=== PATIENT | male | born 1960 | race African-American/Black ===

== ENCOUNTER 2017-01-31 20:55 | Inpatient (IN) | payer MEDICARE ==
[2017-01-31 21:50] LABS: #Basophils 0.1 thou/uL (0.0-0.2); #Eosinphils 0.5 thou/uL (0.0-0.7); #Monocytes 0.7 thou/uL (0.11-0.59); #Neutrophils 8.6 thou/uL (1.40-6.50); %Basophils 0.5 % (0.0-1.0); %Eosinophils 4.7 % (0.0-10.0); %Lymphocytes 9.4 % (21.0-51.0); %Monocytes 6.5 % (0.0-10.0); Hematocrit 32.4 % (42.0-52.0); Mean Platelet Volume 7.4 fL (7.4-10.4); White Blood Cell (WBC) Count 10.9 thou/uL (4.8-10.8)
[2017-01-31] MEDS ORDERED: Morphine 4 MG/ML VIAL ONE (21:50)
[2017-01-31 22:11] LABS: ALT (SGPT) 8 U/L (8-55); AST (SGOT) 13 U/L (5-34); Alkaline Phosphatase 166 U/L (40-150); Anion Gap 7 mmol/L (10-20); BUN (Urea Nitrogen) 12 mg/dL (8.4-25.7); Bilirubin, Total 0.2 mg/dL (0.2-1.2); Calc. Creatinine Clearance 0 mL/min (70-130); Calcium 10.9 mg/dL (7.8-10.44); Carbon Dioxide 27 mmol/L (22-29); Chloride 105 mmol/L (98-107); Estimated GFR-MDRD Greater than 90; Globulin 3.3 g/dL (2.4-3.5); Protein, Total 6.5 g/dL (6.0-8.3)
[2017-01-31] MEDS ORDERED: HYDROmorphone 0.5 MG/0.5 ML SYRINGE ONE (22:39)
[2017-01-31] MEDS ORDERED: HYDROmorphone 0.5 MG/0.5 ML SYRINGE SLOW IVP SCH (22:45)
[2017-02-01] MEDS ORDERED: Bisacodyl 5 MG TAB PO PRN (01:12)
[2017-02-01] MEDS ORDERED: Polyethylene Glycol 3350 17 GM Packet PO SCH (01:12)
[2017-02-01 01:30] VITALS: BMI 22.1
--- NOTE | 2017-02-01 01:53 | HP-2 ---
CODE STATUS: FULL. PRIMARY CARE PHYSICIAN: Ramón river. ATTENDING: Dr. Disla. PGY1: Dr. Antunez. SPECIALIST: Dr. Flor with Oncology. CHIEF COMPLAINT: Rectal pain. HISTORY OF PRESENT ILLNESS: This is a 56-year-old male who presents with a 3- day history of intractable rectal pain. He states that he takes [place] and morphine at home and he ran out of his pills 3 days ago. He describes the pain is a deep low rectal pain that feels like intense pressure. He states the pain does not radiate. He states nothing makes it better or worse. He has had normal bowel movements with some blood in his stool that has been normal for him since his diagnosis. He notes that he feels like a bowel movement would help the pain. He does also note some pain with urination at this time. He finished his radiation treatments about 1.5 weeks ago and will undergo a port placement in 2 weeks to start chemo treatments at that time. He has no other complaints at this time. 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 PAST SURGICAL HISTORY: Previous bowel surgery and right arm fracture repair. ALLERGIES: No known drug allergies. MEDICATIONS: He was taking six 10/325 mg [place] a day and he was taking morphine. He did not know the dosages of the morphine, but likely he was taking two tablets of 15 mg extended release tablets q.12 hours and so the combination of the [place] and the morphine likely equals to 40 mg of morphine per day. FAMILY HISTORY: Noncontributory. SOCIAL HISTORY: He does have a tobacco smoking history of 2 packs per day for 30 years. He denies alcohol or drug use. REVIEW OF SYSTEMS: GENERAL: He denies fever or chills. He does admit to a 54-pound weight loss in the last 3 months. EYES: Denies any vision changes or eye pain. ENT: Denies nasal congestion, rhinorrhea, or sore throat. RESPIRATORY: Denies cough, congestion, shortness of breath, exercise intolerance. CARDIOVASCULAR: Denies chest pain, palpitations, or edema. GASTROINTESTINAL: He does admit to nausea. He denies vomiting, diarrhea, constipation, or abdominal pain. He does admit to GI bleeding. GENITOURINARY: Denies any incontinence or dysuria. SKIN: He denies any rashes or lesions. MUSCULOSKELETAL: Denies pain, tenderness, or stiffness. NEUROLOGIC: He denies any weakness, numbness, syncope, or seizures. PSYCHIATRIC: He denies anxiety or depression. PHYSICAL EXAMINATION: VITAL SIGNS: Blood pressure is 119/69, pulse of 76, respirations 18, temperature max 98.8, pulse ox 97% on room air, current weight is 79 kilos. GENERAL: He is alert and oriented x4. He is appropriately interactive. EYES: PERRLA. Conjunctivae within normal limits. ENT: Tympanic membranes are pearly nava without bulging or erythema. Nasal mucosa and oropharynx within normal limits. NECK: Supple, without lymphadenopathy, without thyromegaly. CARDIOVASCULAR: Regular rate and rhythm. No murmurs, no gallops. Radial and pedal pulses equal bilaterally. RESPIRATORY: Normal effort. No retractions. LUNGS: Clear to auscultation bilaterally. SKIN: Warm and dry. ABDOMEN: Soft, nontender to palpation. Bowel sounds present x4. No masses or distention. EXTREMITIES: No clubbing, cyanosis, or edema. MUSCULOSKELETAL: Muscle structure, tone, muscle strength and range of motion within normal limits. NEUROLOGIC: No focal neurologic deficits. Sensation was within normal limits. Cranial nerves II through XII are grossly intact. GCS was 15. PSYCHIATRIC: Appropriate. RECTAL: He did have external hemorrhoids with no evidence of thrombosis or infection, but he could not tolerate digital rectal exam at this time because of pain. LABORATORY DATA: White blood cell count 10.9, platelet count 393, hemoglobin 10.2, hematocrit 32.4, MCV 89.9%, neutrophils 78.9. Sodium 135, potassium 4.0, chloride 105, bicarb 27, BUN 12, creatinine 0.85, glucose 89, calcium was 10.9, total protein 6.5, albumin 3.2, total bilirubin 0.2, AST 13, ALT 8, alkaline phosphatase 166. ASSESSMENT AND PLAN: A 56-year-old male who presents with: 1. Intractable pain likely secondary to his stage IV colon cancer. We will consult palliative care, given morphine, sitz bath, pain control as needed, and then a bowel regimen. 2. Stage IV Invasive Adenocarcinoma of the colon. Consult Oncology and Palliative as well as same as above. 3. Anemia. It is stable, actually improved from prior hospitalizations. We will monitor going forward. 4. Opioid withdrawal, likely because of his running out of medications. We will go same as above with the morphine and pain control regimen. Disposition and length of hospital stay will be inpatient in 2 midnights. Symptomatic medication will be provided. History and physical exam as well as management have been discussed with Dr. Disla. TAYLOR
[2017-02-01 02:30] LABS: Bilirubin Negative (Negative); Blood, Urine Trace (Negative); Glucose, Urine (Dipstick) Negative (Negative); Ketone, Urine Negative (Negative); Nitrite Negative (Negative); Protein, Urine (Dipstick) Negative (Neg-Trace); Urobilinogen 0.2 mg/dL (0.2-1.0)
[2017-02-01 02:32] LABS: Bacteria/HPF None Seen HPF (None Seen); Hyaline Casts/LPF 4-6 HYALINE CAST LPF (0-3 Hyaline); Squamous Epithelial 0-3 HPF (0-3); WBC/HPF 0-3 HPF (0-3)
[2017-02-01] MEDS: MORPHINE 10 MG/ML SYRINGE SLOW IVP PRN ×2 (02:34→06:10)
[2017-02-01 04:04] LABS: #Eosinphils 0.4 thou/uL (0.0-0.7); #Lymphocytes 0.7 thou/uL (1.20-3.40); #Monocytes 0.7 thou/uL (0.11-0.59); #Neutrophils 9.7 thou/uL (1.40-6.50); %Basophils 0.4 % (0.0-1.0); %Eosinophils 3.6 % (0.0-10.0); %Lymphocytes 5.6 % (21.0-51.0); %Monocytes 6.2 % (0.0-10.0); Hematocrit 30.3 % (42.0-52.0); Red Blood Cell (RBC) Count 3.38 mill/uL (4.70-6.10); White Blood Cell (WBC) Count 11.6 thou/uL (4.8-10.8)
[2017-02-01 04:21] LABS: Anion Gap 8 mmol/L (10-20); BUN (Urea Nitrogen) 10 mg/dL (8.4-25.7); Calc. Creatinine Clearance 109 mL/min (70-130); Calcium 10.7 mg/dL (7.8-10.44); Carbon Dioxide 24 mmol/L (22-29); Chloride 106 mmol/L (98-107); Estimated GFR-MDRD Greater than 90
[2017-02-01] MEDS ORDERED: Morphine ER 15 MG TAB PO SCH (09:00)
[2017-02-01] MEDS: Ondansetron ODT 4 MG TAB PO PRN ×2 (09:05→23:28)
[2017-02-01] MEDS: Docusate 100 MG CAP PO SCH ×2 (09:05→20:09)
--- NOTE | 2017-02-01 09:28 | PDOC.FM ---
- Subjective Subjective: Patient reports being able to get some sleep overnight despite pain. Reports he has not had BM overnight which is unusual for him. Rectal pain is still present. Denies CP, SOB, N/V. - Objective MAR Reviewed: Yes Vital Signs & Weight: Vital Signs (12 hours) Temp Pulse Resp BP Pulse Ox 02/01/17 03:29 97.8 F 86 18 134/82 100 I&O: 01/31/17 02/01/17 02/02/17 06:59 06:59 06:59 Intake Total 120 Balance 120 Result Diagrams: 02/01/17 03:50 02/01/17 03:50 <Ryan Serna - Last Filed: 02/01/17 09:26> - Objective Vital Signs & Weight: Vital Signs (12 hours) Temp Pulse Resp BP Pulse Ox 02/01/17 12:00 97.7 F 88 16 130/79 99 02/01/17 08:00 98.9 F 82 16 128/73 100 02/01/17 03:29 97.8 F 86 18 134/82 100 I&O: 01/31/17 02/01/17 02/02/17 06:59 06:59 06:59 Intake Total 120 Balance 120 Result Diagrams: 02/01/17 03:50 02/01/17 03:50 <Rebekah Disla - Last Filed: 02/01/17 15:20> Phys Exam - Physical Examination reports pain at rest, grimaces occasionally HEENT: moist MMs, oral pharynx no lesions Neck: no JVD, full ROM Respiratory: no wheezing, clear to auscultation bilateral Cardiovascular: RRR, no significant murmur Gastrointestinal: soft diffusely mildly TTP Musculoskeletal: pulses present Neurological: non-focal, moves all 4 limbs Psychiatric: normal affect, A&O x 3 Skin: no rash, normal turgor <Ryan Serna - Last Filed: 02/01/17 09:26> Dx/Plan (1) Intractable abdominal pain Code(s): R10.9 - UNSPECIFIED ABDOMINAL PAIN Status: Acute Plan: Will restart meds as 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 (2) Rectal adenocarcinoma metastatic to liver Code(s): C20 - MALIGNANT NEOPLASM OF RECTUM; C78.7 - SECONDARY MALIG NEOPLASM OF LIVER AND INTRAHEPATIC BILE DUCT Status: Acute Plan: Stable at this time. Patient finished radiation within the past 2 weeks, and plans to start radiation in the next 2 weeks. (3) Protein calorie malnutrition Code(s): E46 - UNSPECIFIED PROTEIN-CALORIE MALNUTRITION Status: Acute Plan: Ensure high protein (4) Microcytic anemia Code(s): D50.9 - IRON DEFICIENCY ANEMIA, UNSPECIFIED Status: Acute <Ryan Serna - Last Filed: 02/01/17 09:26> Attending Addendum - Attending Addendum I personally evaluated the patient and discussed the management with Dr. Serna. I agree with the History, Examination, Assessment and Plan documented above with any addition or exceptions noted below. Patient still with rectal pain. Will restart home pain meds with [place] and Morphine ER 15 mg TID <Rebekah Disla - Last Filed: 02/01/17 15:20>
[2017-02-01] MEDS: Morphine 4 MG/ML VIAL SLOW IVP PRN ×4 (10:13→23:00)
[2017-02-01] MEDS: HYDROcodone/Acetaminophen 10/325 mg Tablet PO PRN (11:59)
--- NOTE | 2017-02-01 14:13 | HP ---
DATE OF SERVICE: 02/01/2017 CHIEF COMPLAINT: Rectal pain. HISTORY OF PRESENT ILLNESS: The patient is a 56-year-old -[place] male with a past medical h istory of stage IV adenocarcinoma of the colon with liver and lung metastasis, who presented with a 3 -day history of intractable rectal pain. The patient takes [place] and morphine at home, but ran out o f his medications 3 days ago. The pain is pressure-like in nature and does not radiate. He is due t o start chemo on a few weeks and just finished radiation 1-2 weeks ago. Overnight, he has received s ome IV morphine. He has not yet been started back on his home regimen. We will restart his home med ications and short-acting morphine as needed for breakthrough pain. The patient's diagnoses include intractable pain, stage IV invasive adenocarcinoma of the colon, anemia likely secondary to the menti oned above and possible opiate withdrawal, because he has run out of his medications. We will restar t his medications and providing supportive care. I have reviewed and discussed the H&P with Dr. Javed cross and repeated pertinent portions with myself. Please see his dictation for full history, physical, assessment and plan.
[2017-02-01] MEDS: Morphine ER 15 MG TAB PO SCH (20:09)
[2017-02-02] MEDS: HYDROcodone/Acetaminophen 10/325 mg Tablet PO PRN (00:17)
[2017-02-02] MEDS: Morphine 4 MG/ML VIAL SLOW IVP PRN ×2 (03:03→07:05)
--- NOTE | 2017-02-02 05:57 | PDOC.FM ---
- Subjective Subjective: Patient continues to be in pain this morning. Reports that his pain is better than when he came in but still not controlled. Cannot remember the dosages of meds he takes at home. Is very worried that he will not be able to get any pain meds filled because it is too early. He took more [place] 10 tabs than he was supposed to because he was out of the MS Contin for 3 days IN HOUSE CRA. - Objective MAR Reviewed: Yes Vital Signs & Weight: Vital Signs (12 hours) Temp Pulse Resp BP Pulse Ox 02/02/17 03:45 98.3 F 75 12 121/80 98 02/01/17 23:24 98.1 F 77 12 118/81 98 02/01/17 20:00 98.1 F 77 12 02/01/17 19:28 97.7 F 72 16 128/71 97 I&O: 01/31/17 02/01/17 02/02/17 06:59 06:59 06:59 Intake Total 120 960 Balance 120 960 Result Diagrams: 02/01/17 03:50 02/01/17 03:50 <Jimena Winn - Last Filed: 02/02/17 13:33> - Objective Vital Signs & Weight: Vital Signs (12 hours) Temp Pulse Resp BP 02/02/17 16:00 98.6 F 73 16 116/76 02/02/17 11:42 97.5 F L 80 20 116/77 I&O: 02/01/17 02/02/17 02/03/17 06:59 06:59 06:59 Intake Total 120 960 Balance 120 960 Result Diagrams: 02/01/17 03:50 02/01/17 03:50 <Gee Arguelles - Last Filed: 02/02/17 21:24> Phys Exam - Physical Examination Constitutional: NAD lying very still, evidence of pain Respiratory: clear to auscultation bilateral Cardiovascular: RRR, no significant murmur Gastrointestinal: soft, positive bowel sounds mild distension, mild ttp throughout Psychiatric: normal affect, A&O x 3 <Jimena Winn - Last Filed: 02/02/17 13:33> Dx/Plan (1) Rectal adenocarcinoma metastatic to liver Code(s): C20 - MALIGNANT NEOPLASM OF RECTUM; C78.7 - SECONDARY MALIG NEOPLASM OF LIVER AND INTRAHEPATIC BILE DUCT Status: Acute (2) Intractable abdominal pain Code(s): R10.9 - UNSPECIFIED ABDOMINAL PAIN Status: Acute (3) Microcytic anemia Code(s): D50.9 - IRON DEFICIENCY ANEMIA, UNSPECIFIED Status: Acute (4) Protein calorie malnutrition Code(s): E46 - UNSPECIFIED PROTEIN-CALORIE MALNUTRITION Status: Acute - Plan Plan: (1) Intractable abdominal pain Code(s): R10.9 - UNSPECIFIED ABDOMINAL PAIN Status: Acute Plan: Spoke with MAGGIE Miller and was informed home dose should be 60mg MS Contin BID. Restart home doses and will check back later to evaluate pain. Likely d/c home today. (2) Rectal adenocarcinoma metastatic to liver Code(s): C20 - MALIGNANT NEOPLASM OF RECTUM; C78.7 - SECONDARY MALIG NEOPLASM OF LIVER AND INTRAHEPATIC BILE DUCT Status: Acute Plan: Stable at this time. Patient finished radiation within the past 2 weeks, and plans to start chemo in the next 2 weeks. (3) Protein calorie malnutrition Code(s): E46 - UNSPECIFIED PROTEIN-CALORIE MALNUTRITION Status: Acute Plan: Ensure high protein. (4) Microcytic anemia Code(s): D50.9 - IRON DEFICIENCY ANEMIA, UNSPECIFIED Status: Acute Likely due to blood loss from adenocarcinoma, stable at this time. <Jimena Winn - Last Filed: 02/02/17 13:33> Attending Addendum - Attending Addendum I personally evaluated the patient and discussed the management with Dr. Winn. I agree with the History, Examination, Assessment and Plan documented above with any addition or exceptions noted below. Dejan is feeling better. Pain is controlled when he lies still but hurts to move. Moderate abdominal tenderness in lower quadrants. After confering with Esme, oncology nurse practitioner, we learned the correct dose of MS contin he is supposed to be taking is [address] Vallecillo to write schedule II Rxs for MS Contin 60 mg bid #60 and additional Hydrocodone APAP and Compazine 10 mg to hopefully get him through the next 30 days. He will follow up with oncology as scheduled and will likely be discharged if his pain control is adequate later this PM or tomorrow. We discussed bowel regimen and preventing constipation as well as encouraging him to take the Flu and Pneumococcal vaccines. <Gee Arguelles - Last Filed: 02/02/17 21:24>
[2017-02-02] MEDS: Docusate 100 MG CAP PO SCH (08:20)
[2017-02-02] MEDS: Morphine ER 15 MG TAB PO SCH (08:21)
[2017-02-02] MEDS ORDERED: Morphine 4 MG/ML VIAL SLOW IVP PRN (08:38)
[2017-02-02] MEDS ORDERED: Morphine ER 15 MG TAB PO SCH ×2 (10:00→16:30)
[2017-02-02] MEDS ORDERED: Morphine ER 30 MG TAB PO SCH (10:00)
[2017-02-02] MEDS ORDERED: Preparation H Suppository PR PRN (10:31)
[2017-02-02] MEDS ORDERED: Witch Hazel-Glycerin 1 EACH JAR TOP PRN (10:31)
[2017-02-02] MEDS ORDERED: Preparation H Ointment 28 GM TUBE TOP PRN (10:31)
[2017-02-02] MEDS ORDERED: HYDROcodone/Acetaminophen 10/325 mg Tablet PO SCH (12:30)
[2017-02-02] MEDS ORDERED: Prochlorperazine Maleate 5 MG TAB PO PRN (13:44)
[2017-02-02 16:49] VITALS: BP 116/76; TEMP 98.6
--- NOTE | 2017-02-03 11:01 | DIS-2 ---
DATE OF ADMISSION: 02/01/2017 DATE OF DISCHARGE: 02/02/2017 RESIDENT: Jimena Winn DO ADMITTING ATTENDING: Rebekah Disla M.D. DISCHARGE ATTENDING: Gee Arguelles M.D. CONSULTS: None. PROCEDURES/IMAGING: None. PRIMARY DIAGNOSES: 1. Intractable pain secondary to stage IV colon cancer. 2. Stage IV invasive adenocarcinoma of the colon. SECONDARY DIAGNOSIS: Iron deficiency anemia. DISCHARGE MEDICATIONS: 1. Promethazine 10 mg p.o. q.6 hours p.r.n. 2. Docusate 100 mg p.o. b.i.d. 3. Morphine ER 60 mg p.o. q.12 hours x14 tablets. DISCONTINUED MEDICATIONS: Hydrocodone 10/325. Patient had run out of this and it was not refilled during this hospitalization stay for reasons below. HISTORY OF PRESENT ILLNESS AND HOSPITAL COURSE: The patient is a 56-year-old -[place] male with past medical history of stage IV adenocarcinoma of the colon, who is undergoing treatment with chemo and radiation. The patient reports that at his last office visit, MS Contin was not refilled and therefore has been taking more than prescribed of his hydrocodone/acetaminophen. The patient was placed on home medications during his stay and [facility] PA was contacted for recommended dosages of pain medication. It was found that the patient should be on 60 mg p.o. q. 12 hours of MS Contin along with hydrocodone/acetaminophen 10/325 one to two tablets p.o. p.r.n. q.4-6 hours. The patient did receive moderate relief from this pain regimen. Unfortunately, at the time of discharge when trying to determine meds to refill , the patient was [email or web address] as well as confirmed with the pharmacist at [facility] that the patient had been given hydrocodone. On 12/03/2016, [place] 10/325, 180 tablets and again on 12/12, [place] 10/325, 120 tablets. Again on 12/17, five days later, [place] 7.5/325, 30 tablets. Again on 12/26, nine days later, [place] 10/325, 180 tablets. Again on 01/05, 10 days later, [place] 10/325, 120 tablets. Again on 01/12, [place] 10/325, 120 tablets. Again 4 days later on 01/16/2017, [place] 10/325, 180 tablets. Again 11 days later on 01/27, [place] 10/325, 180 tablets. These have been prescribed by multiple different physicians. When patient was approached with the increased amount of scripts and usage of [place], he denied use for any other person including selling these drugs and girlfriend reported that he takes them all himself. Regardless, from this point forward Dr. Flor reports that he will not receive [place] until his next appointment and from here on out will only be prescribed [place] from Dr. Flor and nobody else. The patient and girlfriend are with understanding. DISPOSITION: Stable. DISCHARGE INSTRUCTIONS: 1. Location: Home. 2. Diet: Regular. 3. Activity: As tolerated. 4. Follow up with Dr. Flor, next scheduled appointment on 02/20. TAYLOR
== END 2017-02-02 17:20 | disposition home or self-care (01) | DRG 948 ==
LOC: ERS 20:55 → ONC 02-01 00:11 → OBSVTOIN 02-01 01:12
PROVIDERS: ADMIT Family Medicine; ATTEND Family Medicine
DX: G89.3 Neoplasm related pain (acute) (chronic) (principal); C78.00 Secondary malignant neoplasm of unspecified lung; C78.7 Secondary malignant neoplasm of liver and intrahepatic bile duct; E46 Unspecified protein-calorie malnutrition; Z68.42 Body mass index [BMI] 45.0-49.9, adult; C18.9 Malignant neoplasm of colon, unspecified; F11.23 Opioid dependence with withdrawal; D50.9 Iron deficiency anemia, unspecified; K64.4 Residual hemorrhoidal skin tags; Z92.3 Personal history of irradiation; Z51.5 Encounter for palliative care
CPT/HCPCS: 36415; 80048; 80053; 81001; 85025; 96361; 96374; 96375; 96376; A4216; J1170; J2270; Q0162; Q0164

== ENCOUNTER 2017-02-10 06:26 | Day surgery (SDC) | payer MEDICARE ==
[2017-02-09 11:47] VITALS: BMI 22.4
[2017-02-10] MEDS ORDERED: Fentanyl 100 MCG/2 ML VIAL ONE ×2 (06:44→07:25)
[2017-02-10] MEDS ORDERED: Propofol 500 MG/50 ML VIAL ONE (06:44)
[2017-02-10 06:52] LABS: #Basophils 0.1 thou/uL (0.0-0.2); #Eosinphils 0.7 thou/uL (0.0-0.7); #Lymphocytes 1.1 thou/uL (1.20-3.40); #Monocytes 0.9 thou/uL (0.11-0.59); #Neutrophils 10.9 thou/uL (1.40-6.50); %Basophils 0.5 % (0.0-1.0); %Eosinophils 5.3 % (0.0-10.0); %Lymphocytes 8.2 % (21.0-51.0); %Monocytes 6.3 % (0.0-10.0); Hematocrit 35.2 % (42.0-52.0); Mean Platelet Volume 6.6 fL (7.4-10.4); Red Blood Cell (RBC) Count 3.88 mill/uL (4.70-6.10); White Blood Cell (WBC) Count 13.7 thou/uL (4.8-10.8)
[2017-02-10] MEDS ORDERED: Bupivacaine/Epinephrine 0.25% 30 ML VIAL ONE (07:07)
[2017-02-10] MEDS ORDERED: CEFAZOLIN/Water 2 GM/20 ML SYRINGE ONE (07:09)
[2017-02-10 07:12] LABS: Anion Gap 10 mmol/L (10-20); BUN (Urea Nitrogen) 13 mg/dL (8.4-25.7); Calc. Creatinine Clearance 115 mL/min (70-130); Calcium 11.5 mg/dL (7.8-10.44); Carbon Dioxide 28 mmol/L (22-29); Chloride 102 mmol/L (98-107); Estimated GFR-MDRD Greater than 90
[2017-02-10] MEDS ORDERED: Ketorolac Tromethamine 30 MG/ML VIAL ONE (09:17)
--- NOTE | 2017-02-10 09:18 | RAD ---
PORTABLE UPRIGHT FRONTAL CHEST RADIOGRAPH: Date: 02/10/17 COMPARISON: 11/13/16. HISTORY: Evaluate chest following MediPort placement. FINDINGS: There is a left-sided MediPort, distal tip overlying the region of the cavoatrial junction. There is no pneumothorax, pleural fluid, focal consolidation, or alveolar edema. IMPRESSION: Port-A-Cath in place. No evidence for pneumothorax. POS: [facility]
[2017-02-10] MEDS ORDERED: HYDROcodone/Acetaminophen 5/325 mg Tablet ONE (09:32)
[2017-02-10] MEDS ORDERED: Lidocaine 1% PF 5 ML VIAL ONE (16:29)
[2017-02-10] MEDS ORDERED: Propofol 200 MG/20 ML VIAL ONE (16:30)
--- NOTE | 2017-02-11 14:08 | OP ---
PROCEDURE: Left subclavian MediPort with fluoroscopic guidance. DATE OF PROCEDURE: 02/10/2017 PREOPERATIVE DIAGNOSIS: Metastatic rectal cancer. POSTOPERATIVE DIAGNOSIS: Metastatic rectal cancer. HISTORY: Mr. Canada is a 56-year-old man with metastatic rectal cancer, who requires a MediPort place ment for chemotherapy access. PROCEDURE IN DETAIL: After informed consent was obtained and appropriate preoperative antibiotics ad ministered, the patient was taken to the operating room, he was placed in supine position and monitor ed anesthesia care was administered. He was prepped and draped in a standard sterile fashion and josafat mary in Trendelenburg position. The left subclavian vein was accessed by the standard approach withou t difficulty with excellent flow of dark venous non-pulsatile blood. A wire threaded easily and was confirmed by fluoroscopy to be in the superior vena cava. The skin incision was extended laterally f rom the wire and a subcutaneous pocket created. The low profile MediPort hub was placed within this pocket and secured to the underlying pectoralis fascia with Prolene sutures. A sheath and dilator we re then placed over the wire and the wire and dilator removed leaving the sheath in place. The clamp ed MediPort tubing was advanced through the sheath, which was split and removed leaving the tubing in place. The tubing was drawn back until the tip was at the appropriate location in the superior vena cava. This was trimmed to length and attached to the MediPort hub. The MediPort easily aspirated d ark venous nonpulsatile blood and flushed without resistance. The MediPort was confirmed by fluorosc opy to be in good position with the tip appropriately positioned in the superior vena cava and no kin stephon of the path of the MediPort tubing. The subcutaneous tissues were reapproximated with 3-0 Monoc ryl suture and the skin closed with 4-0 Monocryl suture. Dermabond dressings were applied and the pa tient was taken to the recovery room in good condition. Estimated blood loss was minimal. There wer e no complications. There were no specimens.
== END 2017-02-10 09:50 | disposition home or self-care (01) ==
LOC: SDC 06:26
PROVIDERS: ATTEND Surgery
PROC: 05H633Z Insertion of Infusion Device into Left Subclavian Vein, Percutaneous Approach (ICD-10-PCS; principal; 2017-02-10)
DX: C20 Malignant neoplasm of rectum (principal); C78.7 Secondary malignant neoplasm of liver and intrahepatic bile duct; F17.210 Nicotine dependence, cigarettes, uncomplicated; Z90.49 Acquired absence of other specified parts of digestive tract; Z98.890 Other specified postprocedural states
CPT/HCPCS: 36561; 71010; 80048; 85025; 96374; C1788; 36415; J1642; J1885; J2001; J2704; J3010

== ENCOUNTER 2017-02-24 10:42 | Day surgery (SDC) | payer MEDICARE ==
[2017-02-24] MEDS ORDERED: Sodium Chloride 0.9% 20 ML ONE (11:07)
[2017-02-24] MEDS ORDERED: ONDANSETRON IV SCH (11:15)
[2017-02-24] MEDS ORDERED: SODIUM CHLORIDE 0.9% IV SCH (11:15)
[2017-02-24] MEDS ORDERED: DEXAMETHASONE IV SCH (11:15)
[2017-02-24] MEDS ORDERED: Oxaliplatin 200 MG in Dextrose 5% in Water 500 ML IVPB SCH ×2 (11:30)
[2017-02-24] MEDS ORDERED: FLUOROURACIL IVPB SCH ×2 (11:30)
[2017-02-24] MEDS ORDERED: WATER IVPB SCH ×2 (11:30)
[2017-02-24] MEDS ORDERED: SODIUM CHLORIDE 0.9% IVPB SCH (11:30)
[2017-02-24] MEDS ORDERED: DEXTROSE 5% IVPB SCH ×2 (11:30)
[2017-02-24] MEDS ORDERED: BEVACIZUMAB IVPB SCH (11:30)
[2017-02-24 11:46] VITALS: BP 104/67; TEMP 98
== END 2017-02-24 17:22 | disposition home or self-care (01) ==
LOC: ONC/OP 10:42
PROVIDERS: ATTEND Internal Medicine Medical Oncology
DX: Z51.11 Encounter for antineoplastic chemotherapy (principal); C20 Malignant neoplasm of rectum; C78.7 Secondary malignant neoplasm of liver and intrahepatic bile duct; C78.02 Secondary malignant neoplasm of left lung; C78.01 Secondary malignant neoplasm of right lung; F17.210 Nicotine dependence, cigarettes, uncomplicated; Z79.891 Long term (current) use of opiate analgesic; Z79.899 Other long term (current) drug therapy; Z90.49 Acquired absence of other specified parts of digestive tract; Z98.890 Other specified postprocedural states
CPT/HCPCS: 36415; 80053; 82248; 82378; 83615; 84100; 84550; 96367; 96413; 96415; 96417; A4216; J1100; J2405; J7050; J7070; J9035; J9190; J9263

== ENCOUNTER 2017-03-10 11:56 | Day surgery (SDC) | payer MEDICARE ==
[2017-03-10] MEDS ORDERED: Sodium Chloride 0.9% 50 ML ONE (12:02)
[2017-03-10 12:34] VITALS: BP 130/80
[2017-03-10 12:39] LABS: #Basophils 0.1 thou/uL (0.0-0.2); #Eosinphils 0.8 thou/uL (0.0-0.7); #Lymphocytes 0.9 thou/uL (1.20-3.40); #Monocytes 0.7 thou/uL (0.11-0.59); #Neutrophils 8.1 thou/uL (1.40-6.50); %Basophils 0.5 % (0.0-1.0); %Eosinophils 7.6 % (0.0-10.0); %Lymphocytes 8.3 % (21.0-51.0); %Monocytes 6.5 % (0.0-10.0); %Neutrophils 77.1 % (42.0-75.0); Hemoglobin 10.9 g/dL (14.0-18.0); Mean Corpuscular HGB CONC 32.4 g/dL (32.0-36.0); Mean Corpuscular Hemoglobin 29.9 pg (27.0-31.0); Mean Corpuscular Volume 92.4 fl (80.0-94.0); Mean Platelet Volume 7.2 fL (7.4-10.4); Platelet Count 334 thou/uL (130-400); RBC Distribution Width 18.5 % (11.5-14.5); Red Blood Cell (RBC) Count 3.64 mill/uL (4.70-6.10); White Blood Cell (WBC) Count 10.5 thou/uL (4.8-10.8)
[2017-03-10 13:09] LABS: ALT (SGPT) 8 U/L (8-55); AST (SGOT) 14 U/L (5-34); Albumin 3.6 g/dL (3.5-5.0); Alkaline Phosphatase 164 U/L (40-150); Anion Gap 13 mmol/L (10-20); BUN (Urea Nitrogen) 9 mg/dL (8.4-25.7); Bilirubin, Total 0.2 mg/dL (0.2-1.2); Calc. Creatinine Clearance 104 mL/min (70-130); Calcium 11.1 mg/dL (7.8-10.44); Carbon Dioxide 30 mmol/L (22-29); Chloride 100 mmol/L (98-107); Estimated GFR-MDRD Greater than 90; Globulin 2.9 g/dL (2.4-3.5); Glucose 86 mg/dL (70-105); Potassium 3.5 mmol/L (3.5-5.1); Protein, Total 6.5 g/dL (6.0-8.3); Sodium 139 mmol/L (136-145)
[2017-03-10] MEDS ORDERED: WATER IVPB SCH (13:15)
[2017-03-10] MEDS ORDERED: Oxaliplatin 200 MG in Dextrose 5% in Water 500 ML IVPB SCH (13:15)
[2017-03-10] MEDS ORDERED: Dexamethasone 20 MG in Sodium Chloride 0.9% 50 ML IVPB SCH (13:15)
[2017-03-10] MEDS ORDERED: BEVACIZUMAB IVPB SCH ×2 (13:15→14:30)
[2017-03-10] MEDS ORDERED: SODIUM CHLORIDE 0.9% IVPB SCH ×3 (13:15→14:30)
[2017-03-10] MEDS ORDERED: Ondansetron HCl/PF 10 MG in Sodium Chloride 0.9% 50 ML IVPB SCH (13:15)
[2017-03-10] MEDS ORDERED: FLUOROURACIL IVPB SCH (13:15)
[2017-03-10] MEDS ORDERED: DEXTROSE 5% IVPB SCH (13:15)
[2017-03-10] MEDS ORDERED: Admixture Fee 1 EACH in Dextrose 5% in Water 10 ML FS SCH (13:45)
[2017-03-10] MEDS ORDERED: DEXAMETHASONE SLOW IVP SCH (14:00)
[2017-03-10] MEDS ORDERED: ONDANSETRON HCL IVPB SCH (14:00)
[2017-03-10] MEDS ORDERED: SODIUM CHLORIDE 0.9% SLOW IVP SCH (14:00)
== END 2017-03-10 18:36 | disposition home or self-care (01) ==
LOC: ONC/OP 11:56
PROVIDERS: ATTEND Internal Medicine Medical Oncology
DX: Z51.11 Encounter for antineoplastic chemotherapy (principal); C20 Malignant neoplasm of rectum; C78.7 Secondary malignant neoplasm of liver and intrahepatic bile duct; C78.02 Secondary malignant neoplasm of left lung; C78.01 Secondary malignant neoplasm of right lung; F17.210 Nicotine dependence, cigarettes, uncomplicated; Z79.891 Long term (current) use of opiate analgesic; Z79.899 Other long term (current) drug therapy; Z90.49 Acquired absence of other specified parts of digestive tract
CPT/HCPCS: 80053; 84550; 85025; 96375; 96413; 96415; 96417; A4216; J1100; J2405; J7050; J7070; J9035; J9190; J9263

== ENCOUNTER 2017-03-19 20:15 | Emergency (ER) | payer MEDICARE ==
[2017-03-19 21:40] LABS: #Eosinphils 0.7 thou/uL (0.0-0.7); #Monocytes 0.8 thou/uL (0.11-0.59); #Neutrophils 5.4 thou/uL (1.40-6.50); %Basophils 0.5 % (0.0-1.0); %Eosinophils 8.7 % (0.0-10.0); %Lymphocytes 12.6 % (21.0-51.0); %Monocytes 9.5 % (0.0-10.0); %Neutrophils 68.7 % (42.0-75.0); Hemoglobin 11.3 g/dL (14.0-18.0); Mean Corpuscular HGB CONC 32.4 g/dL (32.0-36.0); Mean Corpuscular Volume 92.4 fl (80.0-94.0); Mean Platelet Volume 7.1 fL (7.4-10.4); Platelet Count 307 thou/uL (130-400); RBC Distribution Width 18.5 % (11.5-14.5); Red Blood Cell (RBC) Count 3.76 mill/uL (4.70-6.10); White Blood Cell (WBC) Count 7.9 thou/uL (4.8-10.8)
--- NOTE | 2017-03-19 21:48 | RAD ---
PORTABLE CHEST ONE VIEW: 03/19/17 at 8:43 p.m. HISTORY: Weakness, weight loss and penis infection. Patient has stage IV colon cancer. FINDINGS: Comparison is made with exam of 02/10/17. The heart size is normal. the lungs are well expanded without focal areas of consolidation, pneumotho rax or pleural effusions. Left sided Port-A-Cath remains in place. IMPRESSION: No radiographic evidence of acute cardiopulmonary process. POS: [facility]
[2017-03-19 21:58] LABS: ALT (SGPT) 8 U/L (8-55); AST (SGOT) 17 U/L (5-34); Albumin 3.4 g/dL (3.5-5.0); Alkaline Phosphatase 144 U/L (40-150); Anion Gap 14 mmol/L (10-20); BUN (Urea Nitrogen) 11 mg/dL (8.4-25.7); Bilirubin, Total Less than 0.2 mg/dL (0.2-1.2); Calc. Creatinine Clearance 0 mL/min (70-130); Calcium 11.9 mg/dL (7.8-10.44); Carbon Dioxide 27 mmol/L (22-29); Chloride 103 mmol/L (98-107); Estimated GFR-MDRD Greater than 90; Globulin 3.4 g/dL (2.4-3.5); Glucose 96 mg/dL (70-105); Potassium 3.8 mmol/L (3.5-5.1); Protein, Total 6.8 g/dL (6.0-8.3); Sodium 140 mmol/L (136-145)
[2017-03-19 22:07] LABS: CKMB 0.4 ng/mL (0-6.6); Troponin I Less than 0.010 ng/mL (< 0.028)
[2017-03-19 23:44] LABS: Bilirubin Negative (Negative); Blood, Urine Negative (Negative); Clarity TURBID (Clear); Glucose, Urine (Dipstick) Negative (Negative); Leukocyte Trace (Negative); Nitrite Negative (Negative); Protein, Urine (Dipstick) Negative (Neg-Trace); Specific Gravity, Urine 1.019 (1.002-1.036)
[2017-03-19 23:46] LABS: Bacteria/HPF None Seen HPF (None Seen); Squamous Epithelial 0-3 HPF (0-3); WBC/HPF 0-3 HPF (0-3)
[2017-03-19 23:49] LABS: Pathc Cast-AUWi Flag 2.84 (0-2.49)
[2017-03-19 23:58] LABS: Crystals/HPF 2+ AMORPH PHOS HPF (Negative); Hyaline Casts/LPF 0-3 HYALINE CAST LPF (0-3 Hyaline)
== END 2017-03-20 00:40 | disposition home or self-care (01) ==
LOC: ERS 20:15
DX: N48.22 Cellulitis of corpus cavernosum and penis (principal); F17.210 Nicotine dependence, cigarettes, uncomplicated; Z85.038 Personal history of other malignant neoplasm of large intestine; Z79.899 Other long term (current) drug therapy
CPT/HCPCS: 71045; 80053; 81003; 81015; 82553; 84484; 85025; 93005; 96360; 99406

== ENCOUNTER 2017-03-26 11:55 | Day surgery (SDC) | payer MEDICARE ==
[2017-03-26] MEDS ORDERED: Dexamethasone 20 MG in Sodium Chloride 0.9% 50 ML IVPB SCH (12:15)
[2017-03-26] MEDS ORDERED: DEXTROSE 5% IVPB SCH ×2 (12:15)
[2017-03-26] MEDS ORDERED: Ondansetron HCl/PF 10 MG in Sodium Chloride 0.9% 50 ML IVPB SCH (12:15)
[2017-03-26] MEDS ORDERED: BEVACIZUMAB IVPB SCH (12:15)
[2017-03-26] MEDS ORDERED: Oxaliplatin 200 MG in Dextrose 5% in Water 500 ML IVPB SCH ×2 (12:15)
[2017-03-26] MEDS ORDERED: WATER IVPB SCH ×2 (12:15)
[2017-03-26] MEDS ORDERED: SODIUM CHLORIDE 0.9% IVPB SCH ×3 (12:15→12:30)
[2017-03-26] MEDS ORDERED: FLUOROURACIL IVPB SCH ×2 (12:15)
[2017-03-26] MEDS ORDERED: Sodium Chloride 0.9% 20 ML ONE (12:24)
[2017-03-26] MEDS ORDERED: DEXAMETHASONE IVPB SCH ×2 (12:30)
[2017-03-26] MEDS ORDERED: ONDANSETRON IVPB SCH ×2 (12:30)
== END 2017-03-26 18:00 | disposition home or self-care (01) ==
LOC: ONC/OP 11:55
PROVIDERS: ATTEND Internal Medicine Medical Oncology
DX: Z51.11 Encounter for antineoplastic chemotherapy (principal); C20 Malignant neoplasm of rectum; F17.210 Nicotine dependence, cigarettes, uncomplicated; Z83.3 Family history of diabetes mellitus; Z90.49 Acquired absence of other specified parts of digestive tract; Z98.890 Other specified postprocedural states
CPT/HCPCS: 36415; 80053; 82248; 83615; 83970; 84100; 84550; 96367; 96413; 96415; 96417; A4216; J1100; J2405; J7050; J7070; J9035; J9190; J9263

== ENCOUNTER 2017-04-04 11:05 | Inpatient (IN) | payer MEDICARE ==
[2017-04-04 11:50] LABS: #Basophils 0.1 thou/uL (0.0-0.2); #Eosinphils 0.3 thou/uL (0.0-0.7); #Monocytes 0.9 thou/uL (0.11-0.59); #Neutrophils 7.4 thou/uL (1.40-6.50); %Basophils 0.6 % (0.0-1.0); %Eosinophils 3.5 % (0.0-10.0); %Lymphocytes 9.8 % (21.0-51.0); %Monocytes 9.1 % (0.0-10.0); %Neutrophils 77.1 % (42.0-75.0); Hemoglobin 11.6 g/dL (14.0-18.0); Mean Corpuscular Hemoglobin 30.1 pg (27.0-31.0); Mean Platelet Volume 6.7 fL (7.4-10.4); Platelet Count 377 thou/uL (130-400); RBC Distribution Width 17.7 % (11.5-14.5); Red Blood Cell (RBC) Count 3.85 mill/uL (4.70-6.10); White Blood Cell (WBC) Count 9.6 thou/uL (4.8-10.8)
[2017-04-04 12:17] LABS: ALT (SGPT) 8 U/L (8-55); AST (SGOT) 13 U/L (5-34); Albumin 3.7 g/dL (3.5-5.0); Alkaline Phosphatase 144 U/L (40-150); Anion Gap 10 mmol/L (10-20); BUN (Urea Nitrogen) 10 mg/dL (8.4-25.7); Bilirubin, Total 0.2 mg/dL (0.2-1.2); CK (CPK) 64 U/L (30-200); Calc. Creatinine Clearance 0 mL/min (70-130); Carbon Dioxide 28 mmol/L (22-29); Chloride 101 mmol/L (98-107); Estimated GFR-MDRD Greater than 90; Globulin 3.2 g/dL (2.4-3.5); Glucose 88 mg/dL (70-105); Potassium 3.5 mmol/L (3.5-5.1); Protein, Total 6.9 g/dL (6.0-8.3); Sodium 135 mmol/L (136-145)
[2017-04-04 12:24] LABS: Calcium 12.5 mg/dL (7.8-10.44)
[2017-04-04 12:27] LABS: CKMB 0.6 ng/mL (0-6.6); Troponin I Less than 0.010 ng/mL (< 0.028)
--- NOTE | 2017-04-04 12:29 | RAD ---
CHEST 1 VIEW: Date: 04/04/17 HISTORY: Chest pain. History of cancer. COMPARISON: Chest radiograph dated 03/19/17. FINDINGS: Port-A-Cath tip is in mid SVC. Lungs are mildly hyperinflated. No focal air space consolidation, pneu mothorax, or effusion. IMPRESSION: No acute intrathoracic abnormality. POS: [facility]
--- NOTE | 2017-04-04 13:06 | CT ---
CTA CHEST WITH CONTRAST CT ABDOMEN WITH CONTRAST CT PELVIS WITH CONTRAST: Date: 04/04/17 HISTORY: Chest pain. Colon cancer with mets. COMPARISON: CT abdomen and pelvis dated 11/13/16. FINDINGS: CT angiogram chest performed after the intravenous administration of contrast. 3D rendering provided. Subsequently, CT abdomen and pelvis performed after the intravenous administration of contrast. No proximal segmental pulmonary arterial filling defect. Pulmonary trunk size is normal. No bowing of the intraventricular septum. No pericardial effusion. There are numerous pulmonary nodules throughout the lungs. Largest is in the anterior segment right u pper lobe, series 4, image 37, measuring 8.0 mm. This was not interrogated on prior CT abdomen/pelvis examination. Innumerable hepatic metastatic disease. New metastases in hepatic segments 5 and 6. Metastatic focus in segment 8 measures up to 2.2 cm, previously 1.8 cm. This is progressive from comparison examinatio n. The bulk of the rectal mass appears to slightly decrease from the comparison examination. There is ex tensive perirectal edema. Mild dilatation of the sigmoid colon. No free intraperitoneal gas. Urinary bladder is distended. Mild hypertrophy of the prostate. Normal renal enhancement. No hydronephrosis. Punctate calculus superior pole right kidney. No acute osseous abnormality. No suspicious lytic or blastic lesions. Left L2 lumbosacral transitiona l vertebra. IMPRESSION: 1. No central pulmonary arterial filling defect. 2. Numerous small pulmonary nodules in the chest, largest measuring up to 8.0 mm, concerning for met astatic disease. 3. Mild increase in size and number of hepatic metastatic disease. 4. Mild size decrease of bulk of the rectal mass.
[2017-04-04] MEDS ORDERED: Acetaminophen 325 MG TAB PO PRN (14:25)
[2017-04-04] MEDS ORDERED: Bisacodyl 5 MG TAB PO PRN (14:25)
[2017-04-04] MEDS ORDERED: ISOVUE-370 76%-LOCM 1 ML ONE (14:30)
[2017-04-04] MEDS ORDERED: Morphine 4 MG/ML Carpuject SLOW IVP PRN (14:58)
--- NOTE | 2017-04-04 18:02 | HP ---
PRIMARY CARE PHYSICIAN: None. PRESENTING COMPLAINT: Chest pain. HISTORY OF PRESENT ILLNESS: A 56-year-old male with a past medical history of stage IV colon cancer with metastasis to the liver and lungs, who presents to the emergency room with a 3-day history of in termittent chest pain, described as dull and like "irregular heartbeat." Pain does not radiate, it i s about 5-7/10. It is not associated with shortness of breath. He denies palpitations, PND, orthopn ea, lower extremity edema. He also reports lethargy, poor appetite, weight loss. He has no fever or chills and no urinary or abdominal symptoms. PAST MEDICAL HISTORY: As above. PAST SURGICAL HISTORY: Laparotomy for abdominal obstruction, also has had back surgery. ALLERGIES: None. HOME MEDICATIONS: Docusate 100 mg p.o. daily, hydrocodone/acetaminophen 1-2 tabs p.o. p.r.n. for sav[place] n, morphine extended release 60 mg q.12 hours, promethazine 10 mg q.6 hours p.r.n. FAMILY AND SOCIAL HISTORY: Denies drinking alcohol, smoking cigarettes or using illicit drugs. REVIEW OF SYSTEMS: Constitutional: Denies fevers or chills. Positive for lethargy, poor appetites. HEENT: Denies changes in vision, nasal congestion, headaches. Respiratory: Denies shortness of b reath, cough, sputum production. Cardiovascular system: Per HPI. Abdomen: Negative. Genitourinar y: Denies hematuria, dysuria, frequency, or urgency. Musculoskeletal: Negative. Neurologic: Severo es dizziness, loss of consciousness. Skin: Denies rashes or skin lesions. Hematology: Negative. PHYSICAL EXAMINATION: VITAL SIGNS: Stable. GENERAL: Not in acute distress, lying comfortably in bed. HEENT: Normocephalic, atraumatic. Oral mucosa moist, not pale, anicteric. EOMI, PERRLA. RESPIRATORY: Clear breath sounds bilaterally. No wheezes or rales. CARDIOVASCULAR SYSTEM: S1 and S2 only. No murmurs, rubs or gallops. ABDOMEN: Bowel sounds positive. Midline abdominal hernia present, reducible, nontender, nondistende d, no organomegaly. NEUROLOGIC: Alert and well oriented. No focal deficits. SKIN: No rashes or lesions appreciated. MUSCULOSKELETAL: Moves all extremities spontaneously with full range of movement. CONSTITUTIONAL: Cachectic. IMAGING: CTA chest, no pulmonary embolism detected. Chest x-ray no signs of acute disease. EKG no signs of acute ischemia. LABORATORY DATA: CBC significant for hypercalcemia 12.5 see NURSERY MANAGER significant for hypercalcemia 12.5. CBC unremarkable. Initial troponin less than 0.01. ASSESSMENT AND PLAN: 1. Chest pain, likely due to his progression carcinoma, less likely from acute coronary syndrome. W e will trend troponin. Admit to telemetry, place on nitroglycerin sublingually and IV Morphine p.r.n . for pain. 2. Stage IV colon cancer with metastasis to the liver and lungs. The patient seems to be progressin g and rehabilitation facility has been contacted on review of the patient. We will place a consult f or PT/OT as well as case management for placement to a rehab facility likely on Thursday. Code status discussed extensively with patient and his and would like to remain full code for now. Discussion took about 18 minutes.
[2017-04-04] MEDS: Sodium Chloride 0.9% 1,000 ML IV SCH (18:21)
--- NOTE | 2017-04-04 18:39 | CON ---
DATE OF CONSULTATION: 04/04/2017 REASON FOR CONSULTATION: Adenocarcinoma. HISTORY OF PRESENT ILLNESS: Mr. 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 He underwent radiation therapy with Xeloda and then began palliative chemotherapy with FOLFOX and Avastin. He has completed 3 cycles, last one being on 03/26/2017. He presented to the ER today with a 3-day history of chest pain. His cardiac workup thus far has been negative. The patient has struggled with poor appetite and weight loss during chemotherapy. He has had a significant pain issues and is treated by pain management. In the emergency room, his CBC looks okay; however, his calcium was elevated at 12.5. He had an abdominal and pelvis CT, which showed numerous small pulmonary nodules with the largest being 8 mm. He also had a mild increase in size of the liver metastasis. There was a decrease in size of the rectal mass. There was no pulmonary embolism noted. The patient states that he was feeling better over the last few weeks until he began to have this chest pain. He denies any shortness of breath, no abdominal pain, no diarrhea or melena. PAST MEDICAL HISTORY: 1. Stage IV adenocarcinoma of the rectum. 2. Liver disease. PAST SURGICAL HISTORY: Total colectomy for polyp removal in 1990, MediPort placement. ALLERGIES: No known drug allergies. HOME MEDICATIONS: 1. Methadone 10 mg b.i.d. 2. [place] 10/325 q.4 hours p.r.n. pain. FAMILY HISTORY: Noncontributory. SOCIAL HISTORY: He is single, lives with his significant other, has 3 children. Current everyday smoker. No alcohol or illicit drug use. REVIEW OF SYSTEMS: Constitutional: No fever, chills, night sweats. Positive for recent weight loss. Eyes: No blurred or double vision. ENT: No pain, hoarseness, sore throat, or dysphagia. Cardiovascular: Positive for chest pain , no palpitations or syncope. Respiratory: No shortness of breath, dyspnea on exertion or orthopnea. Gastrointestinal: No nausea, vomiting, diarrhea, constipation or abdominal pain. Genitourinary: No dysuria or hematuria. Musculoskeletal: Positive for back pain. Skin: No rash or pruritus. Hematologic: No bleeding, bruising or clotting. Neurologic: Positive for weakness, no headache, numbness, tingling or seizure activity. Psychiatric: No anxiety or depression. PHYSICAL EXAMINATION: VITAL SIGNS: Per ER record. GENERAL: Cachectic male, in no acute distress. HEENT: Normocephalic, atraumatic. Pupils are equal and reactive to light. NECK: Supple. CARDIOVASCULAR: Regular rate and rhythm. LUNGS: Clear. ABDOMEN: Soft, nontender, bowel sounds are positive. EXTREMITIES: There is no clubbing, cyanosis or edema. SKIN: No rash. HEMATOLOGIC: No petechia or purpura. NEUROLOGICAL: Nonfocal. PSYCHIATRIC: The patient is alert and oriented and appropriate. PERTINENT LABORATORY AND X-RAYS: Current WBCs are 9.6, hemoglobin 11.3, hematocrit 35.1, platelet count is 377,000. He has got 77% neutrophils, 10% lymphocytes. Sodium is 135, potassium 3.5, chloride 101, CO2 is 28, BUN is 10, creatinine 0.85. Calcium is 12.5, total bilirubin is 0.2, AST is 13, ALT is 8, alkaline phosphatase is 144, creatine kinase is 64. Troponin is negative, less than 0.010. Serum total protein is 6.9, albumin 3.7, globulin 3.2. ASSESSMENT: 1. Stage IV colon cancer, on chemotherapy with FOLFOX and Avastin. 2. Chest pain. 3. Hypercalcemia. DISCUSSION: The patient will have his cardiac workup completed in inpatient setting. Recommend IV fluids for hypercalcemia. He is due for his next cycle of chemotherapy on Thursday. We will work on having this done in the inpatient setting and further recommendations based on his clinical course. Thank you for the consult. TAYLOR
[2017-04-04 18:53] LABS: Troponin I Less than 0.010 ng/mL (< 0.028)
[2017-04-04] MEDS ORDERED: Docusate 100 MG CAP PO SCH (21:00)
[2017-04-04] MEDS: Senokot S 8.6-50 MG TAB PO SCH (21:39)
[2017-04-04] MEDS: HYDROcodone/Acetaminophen 10/325 mg Tablet PO PRN (21:42)
[2017-04-05] MEDS: Ondansetron HCl/PF 4 MG/2 ML Vial IVP PRN ×2 (01:54→09:20)
[2017-04-05] MEDS: Sodium Chloride 0.9% 1,000 ML IV SCH ×4 (01:55→20:00)
[2017-04-05] MEDS: HYDROcodone/Acetaminophen 10/325 mg Tablet PO PRN ×2 (01:55→17:50)
[2017-04-05 05:20] LABS: #Eosinphils 0.2 thou/uL (0.0-0.7); #Lymphocytes 0.7 thou/uL (1.20-3.40); #Monocytes 0.9 thou/uL (0.11-0.59); %Basophils 0.4 % (0.0-1.0); %Eosinophils 2.8 % (0.0-10.0); %Lymphocytes 8.2 % (21.0-51.0); %Monocytes 10.3 % (0.0-10.0); %Neutrophils 78.3 % (42.0-75.0); Hemoglobin 10.3 g/dL (14.0-18.0); Mean Corpuscular Hemoglobin 29.1 pg (27.0-31.0); Mean Platelet Volume 6.9 fL (7.4-10.4); Platelet Count 330 thou/uL (130-400); RBC Distribution Width 17.7 % (11.5-14.5); Red Blood Cell (RBC) Count 3.55 mill/uL (4.70-6.10); White Blood Cell (WBC) Count 8.9 thou/uL (4.8-10.8)
[2017-04-05 05:30] LABS: Anion Gap 10 mmol/L (10-20); BUN (Urea Nitrogen) 10 mg/dL (8.4-25.7); Calc. Creatinine Clearance 97 mL/min (70-130); Carbon Dioxide 27 mmol/L (22-29); Chloride 105 mmol/L (98-107); Estimated GFR-MDRD Greater than 90; Glucose 91 mg/dL (70-105); Magnesium 1.8 mg/dL (1.6-2.6); Potassium 3.5 mmol/L (3.5-5.1); Sodium 138 mmol/L (136-145)
[2017-04-05 05:39] LABS: Calcium 12.1 mg/dL (7.8-10.44)
[2017-04-05] MEDS: Senokot S 8.6-50 MG TAB PO SCH ×2 (09:20→20:08)
[2017-04-05] MEDS: Docusate 100 MG CAP PO SCH (09:20)
[2017-04-05] MEDS: Morphine 5 MG/ML SYRINGE SLOW IVP PRN ×2 (09:20→14:33)
[2017-04-05] MEDS: Enoxaparin Sodium 40 MG/0.4 ML SYRINGE SC SCH (09:20)
--- NOTE | 2017-04-05 10:56 | PDOC.PN ---
- Subjective Encounter Start Date: 04/05/17 Encounter Start Time: 10:54 Subjective: Complains of rectal pain. -: No acute events overnight. - Objective MAR Reviewed: Yes Vital Signs & Weight: Vital Signs (12 hours) Temp Pulse Resp BP Pulse Ox 04/05/17 07:25 99.1 F 75 16 137/91 H 98 04/05/17 04:00 98.8 F 81 18 127/93 H 98 Weight Weight 148 lb 14.4 oz I&O: 04/04/17 04/05/17 04/06/17 06:59 06:59 06:59 Intake Total 1740 Balance 1740 Result Diagrams: 04/05/17 04:19 04/05/17 04:18 Phys Exam - Physical Examination Constitutional: NAD cachectic HEENT: PERRLA, moist MMs, sclera anicteric Neck: supple, full ROM Respiratory: no wheezing, no rales, no rhonchi Gastrointestinal: soft, non-tender, no distention, positive bowel sounds Musculoskeletal: no edema, pulses present Neurological: non-focal, moves all 4 limbs Psychiatric: normal affect, A&O x 3 Skin: no rash Dx/Plan (1) Hypercalcemia Code(s): E83.52 - HYPERCALCEMIA Status: Acute Comment: of malignancy. Being hydrated parenterally. (2) Rectal adenocarcinoma metastatic to liver Code(s): C20 - MALIGNANT NEOPLASM OF RECTUM; C78.7 - SECONDARY MALIG NEOPLASM OF LIVER AND INTRAHEPATIC BILE DUCT Status: Acute Plan: Continue pain management. Comment: Undergoing chemotherapy and radiation therapy. (3) Protein calorie malnutrition Code(s): E46 - UNSPECIFIED PROTEIN-CALORIE MALNUTRITION Status: Acute Qualifiers: Protein-calorie malnutrition severity: moderate Qualified Code(s): E44.0 - Moderate protein-calorie malnutrition Comment: 2/2 malignancy. Dietary supplements implemented. Remeron. (4) Chest pain Code(s): R07.9 - CHEST PAIN, UNSPECIFIED Status: Acute Qualifiers: Chest pain type: unspecified Qualified Code(s): R07.9 - Chest pain, unspecified Comment: ACS ruled out with EKG, serial troponins. Chest pain resolved. Likely 2/2 metastatic cancer. - Plan cont current plan of care, plan discussed w/ family, PT/OT WIll discharge to rehab * .
[2017-04-05 15:58] LABS: Hemoglobin 9.9 g/dL (14.0-18.0)
[2017-04-05 19:17] LABS: Hemoglobin 9.8 g/dL (14.0-18.0)
[2017-04-05] MEDS: Mirtazapine 30 MG TAB PO SCH (21:00)
[2017-04-05] MEDS: Morphine 2 MG/ML SYRINGE SLOW IVP PRN (21:01)
[2017-04-05 23:32] LABS: Hemoglobin 8.8 g/dL (14.0-18.0)
[2017-04-06] MEDS: HYDROcodone/Acetaminophen 10/325 mg Tablet PO PRN (00:35)
[2017-04-06] MEDS: Sodium Chloride 0.9% 1,000 ML IV SCH ×2 (02:46→15:13)
[2017-04-06 03:07] LABS: #Eosinphils 0.2 thou/uL (0.0-0.7); #Lymphocytes 0.8 thou/uL (1.20-3.40); #Monocytes 0.8 thou/uL (0.11-0.59); #Neutrophils 6.7 thou/uL (1.40-6.50); %Basophils 0.4 % (0.0-1.0); %Eosinophils 2.2 % (0.0-10.0); %Lymphocytes 9.6 % (21.0-51.0); %Monocytes 9.3 % (0.0-10.0); %Neutrophils 78.5 % (42.0-75.0); Hemoglobin 8.2 g/dL (14.0-18.0); Mean Corpuscular HGB CONC 33.2 g/dL (32.0-36.0); Mean Corpuscular Hemoglobin 30.3 pg (27.0-31.0); Mean Corpuscular Volume 91.1 fl (80.0-94.0); Mean Platelet Volume 6.5 fL (7.4-10.4); Platelet Count 284 thou/uL (130-400); RBC Distribution Width 17.8 % (11.5-14.5); White Blood Cell (WBC) Count 8.5 thou/uL (4.8-10.8)
[2017-04-06 03:08] LABS: Platelet Count 296 thou/uL (130-400)
[2017-04-06 03:28] LABS: Anion Gap 7 mmol/L (10-20); BUN (Urea Nitrogen) 12 mg/dL (8.4-25.7); Calc. Creatinine Clearance 97 mL/min (70-130); Calcium 11.2 mg/dL (7.8-10.44); Carbon Dioxide 26 mmol/L (22-29); Chloride 107 mmol/L (98-107); Estimated GFR-MDRD Greater than 90; Glucose 118 mg/dL (70-105); Magnesium 1.6 mg/dL (1.6-2.6); Sodium 137 mmol/L (136-145)
[2017-04-06] MEDS: Morphine 2 MG/ML SYRINGE SLOW IVP PRN ×3 (06:31→21:59)
[2017-04-06] MEDS ORDERED: Potassium Chloride 40 MEQ, Admixture Fee 1 EACH in Sodium Chloride 0.9% 250 ML 250 ML IVPB SCH (07:30)
[2017-04-06] MEDS ORDERED: Potassium Chloride 40 MEQ in Premix Bag 1 BAG IVPB SCH (07:30)
[2017-04-06 08:19] LABS: Hemoglobin 7.6 g/dL (14.0-18.0); Platelet Count 300 thou/uL (130-400)
[2017-04-06] MEDS: Enoxaparin Sodium 40 MG/0.4 ML SYRINGE SC SCH (08:26)
[2017-04-06] MEDS: Docusate 100 MG CAP PO SCH (08:29)
[2017-04-06] MEDS: Senokot S 8.6-50 MG TAB PO SCH ×2 (08:30→19:55)
[2017-04-06] MEDS ORDERED: EPINEPHrine 1 MG/ML AMP IVP PRN (10:38)
--- NOTE | 2017-04-06 10:42 | PDOC.PN ---
- Subjective Encounter Start Date: 04/06/17 Encounter Start Time: 10:41 Subjective: Multiple episodes or BRBPR -: Vital signs remained stable - Objective MAR Reviewed: Yes Vital Signs & Weight: Vital Signs (12 hours) Temp Pulse Resp BP Pulse Ox 04/06/17 08:00 97.3 F L 95 18 98 04/06/17 07:55 97.3 F L 95 18 135/83 98 04/05/17 23:24 98.6 F 93 16 135/93 H 100 Weight Weight 148 lb 14.4 oz I&O: 04/05/17 04/06/17 04/07/17 06:59 06:59 06:59 Intake Total 1740 360 Output Total 300 Balance 1740 60 Result Diagrams: 04/06/17 08:08 04/06/17 02:50 Phys Exam - Physical Examination Constitutional: NAD HEENT: PERRLA, moist MMs, sclera anicteric Neck: supple, full ROM Respiratory: no wheezing, no rales, no rhonchi, clear to auscultation bilateral Cardiovascular: RRR, no significant murmur, no rub Gastrointestinal: soft, non-tender, no distention, positive bowel sounds Musculoskeletal: no edema, pulses present Neurological: non-focal, moves all 4 limbs Psychiatric: normal affect, A&O x 3 Skin: no rash, normal turgor Dx/Plan (1) Lower GI bleed Code(s): K92.2 - GASTROINTESTINAL HEMORRHAGE, UNSPECIFIED Status: Acute Comment: Multiple episodes. Remained hemodynamically stable. Likely related to nderlying malignancy and radiation therapy. Will transfuse 2 units of PRBC GI consulted Remains NPO DC Lovenox (2) Hypercalcemia Code(s): E83.52 - HYPERCALCEMIA Status: Acute Comment: Improving Hypercalcemia of malignancy. Being hydrated parenterally. (3) Rectal adenocarcinoma metastatic to liver Code(s): C20 - MALIGNANT NEOPLASM OF RECTUM; C78.7 - SECONDARY MALIG NEOPLASM OF LIVER AND INTRAHEPATIC BILE DUCT Status: Acute Comment: Undergoing chemotherapy and radiation therapy. (4) Protein calorie malnutrition Code(s): E46 - UNSPECIFIED PROTEIN-CALORIE MALNUTRITION Status: Acute Qualifiers: Protein-calorie malnutrition severity: moderate Qualified Code(s): E44.0 - Moderate protein-calorie malnutrition Comment: 2/2 malignancy. Dietary supplements implemented. Remeron. (5) Chest pain Code(s): R07.9 - CHEST PAIN, UNSPECIFIED Status: Resolved Qualifiers: Chest pain type: unspecified Qualified Code(s): R07.9 - Chest pain, unspecified Comment: ACS ruled out with EKG, serial troponins. Chest pain resolved. Likely 2/2 metastatic cancer. - Plan cont current plan of care, plan discussed w/ family, PT/OT, social services coordinator, DVT proph w/SCDs * .
--- NOTE | 2017-04-06 11:16 | CON ---
DATE OF CONSULTATION: 04/06/2017 GASTROENTEROLOGY CONSULTATION CHIEF COMPLAINT: Blood in stool. HISTORY OF PRESENT ILLNESS: Mr. Canada is a 56-year-old man who was diagnosed with rectal cancer back in 10/2016 when he presented with perineal pain, chronic diarrhea and weight loss. Colonoscopy at t hat time showed evidence of prior subtotal colectomy; however, he had a large rectal mass that was fo und to be metastatic to liver. He was treated with radiation and then started chemotherapy a couple months ago. He was admitted to the hospital couple of days ago with chest pain that has since resol ed. He is due for his 4th cycle of chemotherapy to start today. Yesterday, he had full of red blood y stools which was increased from his baseline. His hemoglobin was noted to decrease from 9.8-7.6 an d GI was consulted to evaluate that. He has had no further bleeding today. No nausea or vomiting. No abdominal pain. He has a baseline diarrhea chronically related to his prior subtotal colectomy. PAST MEDICAL HISTORY: Metastatic colon cancer to liver and lungs. PAST SURGICAL HISTORY: Prior colectomy in the distant past and a MediPort placement. FAMILY HISTORY: His brother had some type of abdominal cancer removed surgically. SOCIAL HISTORY: No alcohol or drugs. Previously smoked half pack a day. ALLERGIES: No known drug allergies. MEDICATIONS PRIOR TO ADMISSION: Docusate, hydrocodone, morphine, promethazine. REVIEW OF SYSTEMS: Negative x10 systems reviewed except as stated in the history of present illness. The patient reports a 65 pound weight loss over the last couple of months. PHYSICAL EXAMINATION: VITAL SIGNS: Temperature 97.3, pulse 95, blood pressure 135/83. GENERAL: He is in no acute distress, awake and alert. LUNGS: Clear to auscultation bilaterally. HEART: Regular rate and rhythm without murmur. ABDOMEN: Soft, nontender and nondistended. Bowel sounds are present. EXTREMITIES: No lower extremity edema. LABORATORY DATA: Creatinine 0.83, calcium 11.2 down from 12.1, PTH 177, hemoglobin 7.6 today down fr om 9.9 on presentation. White blood cell count 8.5, platelets 284. IMPRESSION: 1. Rectal cancer metastatic to the liver and lungs, status post radiation and plan for 4th cycle of chemotherapy today by Oncology Service. 2. Hematochezia. Endoscopic options are limited in this setting. He has had no further bleeding to day. 3. Anemia, which is likely multifactorial. RECOMMENDATIONS: 1. He is planned for chemo today. 2. Continue supportive care. 3. Please call if GI can be of assistance. I will sign off for now.
[2017-04-06] MEDS ORDERED: Iopamidol 370 76% 100 ML VIAL ONE (12:18)
[2017-04-06] MEDS ORDERED: Iopamidol 370 76% 50 ML VIAL FS ONE (12:18)
[2017-04-06] MEDS: Dextrose 5 %-0.45 % NaCl 1,000 ML IV SCH (12:49)
[2017-04-06] MEDS ORDERED: SODIUM CHLORIDE IVPB SCH (13:00)
[2017-04-06] MEDS ORDERED: OXALIPLATIN IVPB SCH (13:00)
[2017-04-06] MEDS ORDERED: [UNRECOGNIZED DRUG - OTHER] IVPB SCH (13:00)
[2017-04-06] MEDS ORDERED: FLUOROURACIL IVPB SCH ×2 (13:00→18:15)
[2017-04-06] MEDS ORDERED: DEXAMETHASONE IVPB SCH (13:00)
[2017-04-06] MEDS ORDERED: ADMIXTURE FEE IVPB SCH ×4 (13:00)
[2017-04-06] MEDS ORDERED: BEVACIZUMAB IVPB SCH (13:00)
[2017-04-06] MEDS ORDERED: DEXTROSE IVPB SCH ×2 (13:00)
[2017-04-06] MEDS ORDERED: ONDANSETRON IVPB SCH (13:00)
[2017-04-06] MEDS ORDERED: WATER IVPB SCH ×2 (13:00)
[2017-04-06] MEDS ORDERED: Dextrose 5% in Water 10 ML FS PRN (13:05)
[2017-04-06] MEDS ORDERED: Admixture Fee 1 EACH in Dextrose 5% in Water 10 ML FS PRN (13:15)
--- NOTE | 2017-04-06 13:43 | CT ---
PRE AND POST CONTRAST SOFT TISSUE NECK CT: HISTORY: Hypercalcemia. Evaluate for parathyroid adenoma. Elevated calcium and PTH. TECHNIQUE: Pre and post contrast soft tissue neck CT is performed in the axial plane. Reformatted images are sawyer bmitted for interpretation. FINDINGS: There is a small cavitary lesion in the right upper lobe. A solid nodule in the right upper lobe is also identified. Mild mucosal thickening in the visualized thoracic esophagus. Visualized mediastin al structures are otherwise unremarkable. Visualized brain parenchyma is unremarkable. Adequate aeration of the visualized sinuses and mastoid air cells. The aerodigestive tract is patent. No mucosal abnormality. Periodontal disease with periapical absc ess involving the right mandibular and right maxillary teeth. Grossly, the great vessels of the neck are patent. Central spinal canal and neural foramen are paten t. Limited evaluation. Symmetric attenuation of the sternocleidomastoid muscles. Appropriate attenuation of the parotid and submandibular glands. There is intrinsic hyperdensity of the wainwright thyroid gland. Posterior to the left and right thyroid lobe there are 2 separate enhancing foci. There appears to be a right parathyroid adenoma measuring 1.1 cm anterior posterior x 0.8 cm mediolateral x 1.5 cm craniocaudal. Posterior to the left thyroi d lobe, there appears to be adenoma measuring 0.5 cm anterior posterior x 0.6 cm mediolateral x 2.0 c m craniocaudal. Additional parathyroid adenomas are not appreciated. IMPRESSION: Left and right parathyroid adenomas posterior to the respective thyroid lobes. Both adenomas are at the level of the lower pole of the thyroid gland. POS: [facility]
[2017-04-06] MEDS ORDERED: Zoledronic Acid 4 MG in Sodium Chloride 0.9% 100 ML IVPB SCH (17:15)
[2017-04-06] MEDS ORDERED: SODIUM CHLORIDE 0.9% IVPB SCH (18:15)
[2017-04-06] MEDS: Mirtazapine 30 MG TAB PO SCH (21:59)
[2017-04-07] MEDS: Morphine 2 MG/ML SYRINGE SLOW IVP PRN ×2 (05:36→12:05)
[2017-04-07 05:57] LABS: #Eosinphils 0.1 thou/uL (0.0-0.7); #Lymphocytes 0.8 thou/uL (1.20-3.40); #Monocytes 0.9 thou/uL (0.11-0.59); #Neutrophils 6.8 thou/uL (1.40-6.50); %Basophils 0.5 % (0.0-1.0); %Eosinophils 1.5 % (0.0-10.0); %Lymphocytes 9.6 % (21.0-51.0); %Monocytes 10.5 % (0.0-10.0); %Neutrophils 77.9 % (42.0-75.0); Hemoglobin 6.7 g/dL (14.0-18.0); Mean Corpuscular HGB CONC 32.6 g/dL (32.0-36.0); Mean Corpuscular Hemoglobin 29.7 pg (27.0-31.0); Mean Platelet Volume 6.6 fL (7.4-10.4); Platelet Count 249 thou/uL (130-400); RBC Distribution Width 17.4 % (11.5-14.5); Red Blood Cell (RBC) Count 2.27 mill/uL (4.70-6.10); White Blood Cell (WBC) Count 8.7 thou/uL (4.8-10.8)
[2017-04-07 06:10] LABS: Anion Gap 7 mmol/L (10-20); BUN (Urea Nitrogen) 11 mg/dL (8.4-25.7); Calc. Creatinine Clearance 114 mL/min (70-130); Calcium 11.4 mg/dL (7.8-10.44); Carbon Dioxide 29 mmol/L (22-29); Chloride 105 mmol/L (98-107); Estimated GFR-MDRD Greater than 90; Glucose 91 mg/dL (70-105); Magnesium 1.8 mg/dL (1.6-2.6); Potassium 3.2 mmol/L (3.5-5.1); Sodium 138 mmol/L (136-145)
[2017-04-07] MEDS: Senokot S 8.6-50 MG TAB PO SCH ×2 (08:15→22:06)
[2017-04-07] MEDS: Docusate 100 MG CAP PO SCH (08:15)
[2017-04-07] MEDS: Potassium Chloride 20 MEQ TAB PO SCH ×2 (09:45→16:29)
--- NOTE | 2017-04-07 11:40 | PDOC.PN ---
- Subjective Encounter Start Date: 04/07/17 Encounter Start Time: 11:39 Subjective: No cpmplaints today. -: Vital signs remain stable. -: Ongoing chemotherapy. No hematochezia today. - Objective MAR Reviewed: Yes Vital Signs & Weight: Vital Signs (12 hours) Temp Pulse Resp BP Pulse Ox 04/07/17 08:00 98.7 F 95 16 100 04/07/17 07:45 98.7 F 95 16 131/90 100 Weight Admit Weight 148 lb 14.4 oz Weight 151 lb I&O: 04/06/17 04/07/17 04/08/17 06:59 06:59 06:59 Intake Total 360 2400 Output Total 300 Balance 60 2400 Result Diagrams: 04/07/17 05:30 04/07/17 05:30 Phys Exam - Physical Examination Constitutional: NAD cachectic HEENT: PERRLA, moist MMs, sclera anicteric Neck: supple, full ROM Respiratory: no wheezing, no rales, no rhonchi, clear to auscultation bilateral Cardiovascular: RRR, no significant murmur, no rub Gastrointestinal: soft, non-tender, no distention, positive bowel sounds Musculoskeletal: no edema, pulses present Neurological: non-focal, moves all 4 limbs Psychiatric: A&O x 3 Skin: no rash, normal turgor Dx/Plan (1) Lower GI bleed Code(s): K92.2 - GASTROINTESTINAL HEMORRHAGE, UNSPECIFIED Status: Acute Comment: Hemodynamically stable. GI reviewed, no acute intervention Likely related to nderlying malignancy and radiation therapy. 2 units of PRBC ordered yesterday but oncology waiting until after chemo WIll discuss with oncologists regarding their threshold for transfusing this patient. Monitor vital signs closely. (2) Hypercalcemia Code(s): E83.52 - HYPERCALCEMIA Status: Acute Comment: Hypercalcemia of malignancy. Continue IVF Monitor (3) Rectal adenocarcinoma metastatic to liver Code(s): C20 - MALIGNANT NEOPLASM OF RECTUM; C78.7 - SECONDARY MALIG NEOPLASM OF LIVER AND INTRAHEPATIC BILE DUCT Status: Acute Comment: Undergoing chemotherapy and radiation therapy. (4) Protein calorie malnutrition Code(s): E46 - UNSPECIFIED PROTEIN-CALORIE MALNUTRITION Status: Acute Qualifiers: Protein-calorie malnutrition severity: moderate Qualified Code(s): E44.0 - Moderate protein-calorie malnutrition Comment: 2/2 malignancy. Dietary supplements implemented. Remeron. (5) Chest pain Code(s): R07.9 - CHEST PAIN, UNSPECIFIED Status: Resolved Qualifiers: Chest pain type: unspecified Qualified Code(s): R07.9 - Chest pain, unspecified Comment: ACS ruled out with EKG, serial troponins. Chest pain resolved. Likely 2/2 metastatic cancer. - Plan cont current plan of care, plan discussed w/ family, PT/OT, forensic social worker, DVT proph w/SCDs * .
[2017-04-07 12:17] LABS: Hemoglobin 7.6 g/dL (14.0-18.0)
[2017-04-07] MEDS: Dextrose 5 %-0.45 % NaCl 1,000 ML IV SCH (12:41)
[2017-04-07] MEDS: HYDROcodone/Acetaminophen 10/325 mg Tablet PO PRN (13:41)
[2017-04-07] MEDS ORDERED: Witch Hazel-Glycerin 1 EACH JAR TOP PRN (13:59)
[2017-04-07] MEDS ORDERED: Preparation H Ointment 28 GM TUBE TOP PRN (14:00)
[2017-04-07] MEDS: Mirtazapine 30 MG TAB PO SCH (22:06)
[2017-04-08 06:46] LABS: #Eosinphils 0.1 thou/uL (0.0-0.7); #Lymphocytes 0.3 thou/uL (1.20-3.40); #Monocytes 0.3 thou/uL (0.11-0.59); #Neutrophils 3.1 thou/uL (1.40-6.50); %Eosinophils 1.8 % (0.0-10.0); %Lymphocytes 6.6 % (21.0-51.0); %Monocytes 7.8 % (0.0-10.0); %Neutrophils 82.8 % (42.0-75.0); Hemoglobin 6.8 g/dL (14.0-18.0); Mean Corpuscular HGB CONC 31.6 g/dL (32.0-36.0); Mean Corpuscular Hemoglobin 29.3 pg (27.0-31.0); Mean Corpuscular Volume 92.6 fl (80.0-94.0); Mean Platelet Volume 6.9 fL (7.4-10.4); Platelet Count 256 thou/uL (130-400); RBC Distribution Width 17.9 % (11.5-14.5); Red Blood Cell (RBC) Count 2.32 mill/uL (4.70-6.10); White Blood Cell (WBC) Count 3.7 thou/uL (4.8-10.8)
[2017-04-08 06:57] LABS: Anion Gap 6 mmol/L (10-20); BUN (Urea Nitrogen) 7 mg/dL (8.4-25.7); Calc. Creatinine Clearance 111 mL/min (70-130); Calcium 9.8 mg/dL (7.8-10.44); Carbon Dioxide 31 mmol/L (22-29); Chloride 102 mmol/L (98-107); Estimated GFR-MDRD Greater than 90; Glucose 113 mg/dL (70-105); Potassium 3.6 mmol/L (3.5-5.1); Sodium 135 mmol/L (136-145)
[2017-04-08 07:00] LABS: Phosphorus 1.9 mg/dL (2.3-4.7)
[2017-04-08] MEDS: Dextrose 5 %-0.45 % NaCl 1,000 ML IV SCH ×4 (08:14→17:49)
[2017-04-08] MEDS: Docusate 100 MG CAP PO SCH (08:16)
[2017-04-08] MEDS: Senokot S 8.6-50 MG TAB PO SCH ×2 (08:16→22:27)
--- NOTE | 2017-04-08 11:26 | PDOC.PN ---
- Subjective Encounter Start Date: 04/08/17 Encounter Start Time: 11:26 Subjective: No new complaints -: Still undegoing chemo -: No acute events overnight. Hemoglobin stable. - Objective Vital Signs & Weight: Vital Signs (12 hours) Temp Pulse Resp BP BP Pulse Ox 04/08/17 08:00 98.3 F 82 20 100 04/08/17 07:48 98.3 F 82 20 139/85 100 04/08/17 04:00 98.3 F 83 16 119/78 100 04/08/17 00:00 98.9 F 90 16 123/82 100 Weight Admit Weight 148 lb 14.4 oz Weight 151 lb I&O: 04/07/17 04/08/17 04/09/17 06:59 06:59 06:59 Intake Total 2400 2312 Balance 2400 2312 Result Diagrams: 04/08/17 05:15 04/08/17 05:15 Phys Exam - Physical Examination Constitutional: NAD cachectic HEENT: PERRLA, moist MMs, sclera anicteric Neck: supple, full ROM Respiratory: no wheezing, no rales, no rhonchi, clear to auscultation bilateral Cardiovascular: RRR, no significant murmur, no rub Gastrointestinal: soft, non-tender, no distention, positive bowel sounds Musculoskeletal: no edema, pulses present Neurological: non-focal, moves all 4 limbs Psychiatric: normal affect, A&O x 3 Skin: no rash, normal turgor Dx/Plan (1) Lower GI bleed Code(s): K92.2 - GASTROINTESTINAL HEMORRHAGE, UNSPECIFIED Status: Acute Plan: Remains Stable. Monitor Hb. Transfusion per oncology team. Comment: Hemodynamically stable. GI reviewed, no acute intervention Likely related to nderlying malignancy and radiation therapy. 2 units of PRBC ordered yesterday but oncology waiting until after chemo WIll discuss with oncologists regarding their threshold for transfusing this patient. Monitor vital signs closely. (2) Hypercalcemia Code(s): E83.52 - HYPERCALCEMIA Status: Resolved Plan: Resolved. Comment: Hypercalcemia of malignancy. Continue IVF Monitor (3) Rectal adenocarcinoma metastatic to liver Code(s): C20 - MALIGNANT NEOPLASM OF RECTUM; C78.7 - SECONDARY MALIG NEOPLASM OF LIVER AND INTRAHEPATIC BILE DUCT Status: Acute Comment: Undergoing chemotherapy and radiation therapy. (4) Protein calorie malnutrition Code(s): E46 - UNSPECIFIED PROTEIN-CALORIE MALNUTRITION Status: Acute Qualifiers: Protein-calorie malnutrition severity: moderate Qualified Code(s): E44.0 - Moderate protein-calorie malnutrition Plan: Encourage to take dietary supplements. Comment: 2/2 malignancy. Dietary supplements implemented. Remeron. (5) Chest pain Code(s): R07.9 - CHEST PAIN, UNSPECIFIED Status: Resolved Qualifiers: Chest pain type: unspecified Qualified Code(s): R07.9 - Chest pain, unspecified Comment: ACS ruled out with EKG, serial troponins. Chest pain resolved. Likely 2/2 metastatic cancer. (6) Hypophosphatemia Code(s): E83.39 - OTHER DISORDERS OF PHOSPHORUS METABOLISM Status: Acute Comment: Replete/ - Plan cont current plan of care, plan discussed w/ family, PT/OT, social services technician Continue chemo -: Transfusion per oncology. -: CM to keep working on discharge dispo * .
[2017-04-08 12:07] VITALS: BMI 21.0
[2017-04-08] MEDS: Mirtazapine 30 MG TAB PO SCH (22:28)
[2017-04-09] MEDS: Senokot S 8.6-50 MG TAB PO SCH (08:38)
[2017-04-09] MEDS: Docusate 100 MG CAP PO SCH (08:38)
[2017-04-09 08:59] LABS: #Eosinphils 0.4 thou/uL (0.0-0.7); #Lymphocytes 0.6 thou/uL (1.20-3.40); #Monocytes 0.4 thou/uL (0.11-0.59); #Neutrophils 4.1 thou/uL (1.40-6.50); %Basophils 0.6 % (0.0-1.0); %Eosinophils 7.4 % (0.0-10.0); %Lymphocytes 10.5 % (21.0-51.0); %Neutrophils 74.5 % (42.0-75.0); Hemoglobin 7.6 g/dL (14.0-18.0); Mean Corpuscular HGB CONC 32.7 g/dL (32.0-36.0); Mean Corpuscular Hemoglobin 29.8 pg (27.0-31.0); Mean Corpuscular Volume 91.4 fl (80.0-94.0); Mean Platelet Volume 6.4 fL (7.4-10.4); Platelet Count 206 thou/uL (130-400); RBC Distribution Width 16.9 % (11.5-14.5); Red Blood Cell (RBC) Count 2.55 mill/uL (4.70-6.10); White Blood Cell (WBC) Count 5.5 thou/uL (4.8-10.8)
[2017-04-09 09:17] LABS: Anion Gap 6 mmol/L (10-20); BUN (Urea Nitrogen) 5 mg/dL (8.4-25.7); Calc. Creatinine Clearance 122 mL/min (70-130); Calcium 9.1 mg/dL (7.8-10.44); Carbon Dioxide 29 mmol/L (22-29); Chloride 103 mmol/L (98-107); Estimated GFR-MDRD Greater than 90; Glucose 88 mg/dL (70-105); Magnesium 1.9 mg/dL (1.6-2.6); Potassium 3.3 mmol/L (3.5-5.1); Sodium 135 mmol/L (136-145)
[2017-04-09] MEDS: Ondansetron HCl/PF 4 MG/2 ML Vial IVP PRN (09:25)
--- NOTE | 2017-04-09 11:52 | PDOC.PN ---
- Subjective Encounter Start Date: 04/09/17 Encounter Start Time: 11:50 Subjective: no acute distress. Lying comfortably in bed. -: No acute events overnight. - Objective MAR Reviewed: Yes Vital Signs & Weight: Vital Signs (12 hours) Temp Pulse Pulse Resp BP BP Pulse Ox 04/09/17 08:00 98.2 F 80 16 129/89 98 04/09/17 03:24 98.6 F 79 16 116/79 100 04/09/17 01:30 98.4 F 80 18 126/84 98 04/09/17 00:00 98.4 F 80 18 126/84 97 Weight Admit Weight 148 lb 14.4 oz Weight 151 lb I&O: 04/08/17 04/09/17 04/10/17 06:59 06:59 06:59 Intake Total 2312 2350 Balance 2312 2350 Result Diagrams: 04/09/17 08:47 04/09/17 08:47 Phys Exam - Physical Examination Constitutional: NAD HEENT: PERRLA, moist MMs, sclera anicteric cachectic Neck: supple, full ROM Respiratory: no wheezing, no rales, no rhonchi, clear to auscultation bilateral Cardiovascular: RRR, no significant murmur, no rub Gastrointestinal: soft, non-tender, no distention, positive bowel sounds Musculoskeletal: no edema, pulses present Neurological: non-focal, moves all 4 limbs Psychiatric: normal affect, A&O x 3 Skin: no rash, normal turgor Dx/Plan (1) Normocytic anemia due to blood loss Code(s): D50.0 - IRON DEFICIENCY ANEMIA SECONDARY TO BLOOD LOSS (CHRONIC) Status: Acute Comment: 2/2 recent rectal bleed. Being transfused as necessary poer oncology. (2) Hypercalcemia Code(s): E83.52 - HYPERCALCEMIA Status: Resolved Comment: Hypercalcemia of malignancy. Continue IVF Monitor (3) Rectal adenocarcinoma metastatic to liver Code(s): C20 - MALIGNANT NEOPLASM OF RECTUM; C78.7 - SECONDARY MALIG NEOPLASM OF LIVER AND INTRAHEPATIC BILE DUCT Status: Acute Comment: Undergoing chemotherapy and radiation therapy. (4) Protein calorie malnutrition Code(s): E46 - UNSPECIFIED PROTEIN-CALORIE MALNUTRITION Status: Acute Qualifiers: Protein-calorie malnutrition severity: moderate Qualified Code(s): E44.0 - Moderate protein-calorie malnutrition Comment: 2/2 malignancy. Dietary supplements implemented. Remeron. (5) Hypophosphatemia Code(s): E83.39 - OTHER DISORDERS OF PHOSPHORUS METABOLISM Status: Acute Comment: Replete as needed. (6) Chest pain Code(s): R07.9 - CHEST PAIN, UNSPECIFIED Status: Resolved Qualifiers: Chest pain type: unspecified Qualified Code(s): R07.9 - Chest pain, unspecified Comment: ACS ruled out with EKG, serial troponins. Chest pain resolved. Likely 2/2 metastatic cancer. (7) Lower GI bleed Code(s): K92.2 - GASTROINTESTINAL HEMORRHAGE, UNSPECIFIED Status: Resolved Comment: Had rectal bleeding episodes. Resolved. Hemodynamically stable. GI reviewed, no acute intervention Likely related to underlying malignancy and radiation therapy. (8) Physical deconditioning Code(s): R53.81 - OTHER MALAISE Status: Acute Comment: 2/2 advanced adenocarcinoma. PT/OT on board. CM on board as well regarding rehab - Plan cont current plan of care, plan discussed w/ family, PT/OT, social media editor, DVT proph w/SCDs * .
[2017-04-09] MEDS: Dextrose 5 %-0.45 % NaCl 1,000 ML IV SCH (13:15)
[2017-04-09 16:51] VITALS: BP 126/80; TEMP 98.8
--- NOTE | 2017-04-10 01:00 | DIS ---
DATE OF ADMISSION: 04/04/2017 DATE OF DISCHARGE: 04/09/2017 DISCHARGE DIAGNOSES: 1. Chest pain (resolved). 2. Stage IV adenocarcinoma of the colon with metastasis to liver and lungs. 3. Hypercalcemia. SECONDARY DIAGNOSES: 1. Hyperphosphatemia. 2. Hypokalemia. 3. Protein calorie malnutrition. 4. Rectal bleeding. 5. Normocytic anemia. HISTORY OF PRESENT ILLNESS: A 56-year-old male with history of stage IV colon cancer with metastases to liver and lung who presented to the emergency room with 3-day history of intermittent chest pain. Described as dull and like "irregular heartbeat" pain did not radiate, it was 5-7/10, not associated with shortness of breath. He denied palpitations, PND, orthopnea, or lower extremity edema. He also reported lethargy, poor appetite and weight loss. He had no fever or chills and no urinary or abdominal symptoms. HOSPITAL COURSE: He was admitted for chest pain to rule out ACS, which was ruled out by serial troponins and EKG. He will also have nitroglycerin and morphine p.r.n. for pain. Pain was resolved before discharge. For his stage IV adenocarcinoma, he had chemotherapy while in the hospital. He also had hypercalcemia on admission, which resolved with hydration. While on admission, he also had some rectal bleeding requiring transfusion with 2 units of PRBC. Hemoglobin remained stable before discharge. Electrolytes which were abnormal were corrected including potassium and phosphorus. Due to his physical deconditioning, he was given physical and occupational therapy and now being placed at subacute rehab facility. Of notes, the patient also was evaluated by GI for his rectal bleeding and no acute interventions were recommended. DISCHARGE MEDICATIONS: Acetaminophen 650 mg p.o. q.4 hours p.r.n. for mild pain , Dulcolax 10 mg p.o. daily, docusate 100 mg p.o. daily, hydrocodone/ acetaminophen 1-2 tablets p.o. q.4 hours p.r.n. for pain, methadone 30 mg p.o. q.8 hours, mirtazapine 30 mg p.o. at bedtime, phosphorus/electrolyte supplement 25 p.o. t.i.d. PHYSICAL EXAMINATION: He was examined on day of discharge. For details, see today's progress notes. LABORATORY DATA: Hemoglobin 7.6, WBC 5.5, platelets 206. Sodium 135, potassium 3.3, chloride 103, carbon dioxide 29, BUN 5, creatinine 0.6, phosphorus 1.5, PTH 177.2. IMAGING: Neck CT, which showed left and right parathyroid adenomas posterior to the respective thyroid lobes, both adenomas at the level of the lower pole of the thyroid gland. Chest CTA, no central pulmonary arterial filling defect. Number of small pulmonary nodules in the chest, largest measuring up to 8 mm concerning for metastatic disease. Mild increase in size and number of hepatic metastatic disease, mild decrease in the size and bulk of the rectal mass. Abdomen/pelvis CT as above. Chest x-ray no acute intrathoracic abnormality. CONSULTATIONS: Gastroenterology, Oncology. PROCEDURES: None. DIET: Regular. CARE GOALS: Discharged to subacute rehabilitation. He is to follow up with her physician within 1 week of discharge for repeat labs. ACTIVITY: As tolerated and directed by physical therapy. Time of discharge: 65 minutes including documentation and chart review. [facility]
--- NOTE | 2017-04-11 17:24 | EKG ---
Test Reason : CHEST PAIN Blood Pressure : / mmHG Vent. Rate : 110 BPM Atrial Rate : 110 BPM P-R Int : 138 ms QRS Dur : 082 ms QT Int : 318 ms P-R-T Axes : 080 068 008 degrees QTc Int : 430 ms Sinus tachycardia Possible Left atrial enlargement Borderline ECG Confirmed by TIERA DIETZ, JEET Dennis ([id number]), editor producer MADDIE MCKAY ([id number]) on 04/11/2017 5:23:27 PM Referred By: Confirmed By:JEET MOTT MD
== END 2017-04-09 19:10 | DRG 181 ==
LOC: ERS 11:05 → ERHOLD 14:07 → 2NO 17:18 → ONC 04-05 18:55
PROVIDERS: ADMIT Internal Medicine; ATTEND Internal Medicine
PROC: 3E03305 Introduction of Other Antineoplastic into Peripheral Vein, Percutaneous Approach (ICD-10-PCS; 2017-04-07)
PROC: 30233N1 Transfusion of Nonautologous Red Blood Cells into Peripheral Vein, Percutaneous Approach (ICD-10-PCS; principal; 2017-04-08)
DX: C78.00 Secondary malignant neoplasm of unspecified lung (principal); C78.7 Secondary malignant neoplasm of liver and intrahepatic bile duct; E44.0 Moderate protein-calorie malnutrition; E83.39 Other disorders of phosphorus metabolism; D62 Acute posthemorrhagic anemia; C18.9 Malignant neoplasm of colon, unspecified; E83.52 Hypercalcemia; K62.5 Hemorrhage of anus and rectum; C20 Malignant neoplasm of rectum; R07.89 Other chest pain; Z68.21 Body mass index [BMI] 21.0-21.9, adult; Z92.21 Personal history of antineoplastic chemotherapy; Z92.3 Personal history of irradiation; Z90.49 Acquired absence of other specified parts of digestive tract; Z95.828 Presence of other vascular implants and grafts; D50.0 Iron deficiency anemia secondary to blood loss (chronic); R53.81 Other malaise; Z51.11 Encounter for antineoplastic chemotherapy; F17.210 Nicotine dependence, cigarettes, uncomplicated; R33.9 Retention of urine, unspecified
CPT/HCPCS: 36415; 36430; 70492; 71045; 71275; 74177; 80048; 80053; 82550; 82553; 83735; 83970; 84100; 84484; 85025; 86850; 86900; 86901; 93005; 94760; J2270; A4216; G8978-GP-CM; G8979-GP-CI; G8987-GO-CL; G8988-GO-CJ; J0171; J1100; J1642; J1650; J2405; J3480; J3489; J7050; J7070; J9035; J9190; J9263; P9016

== ENCOUNTER 2017-04-29 16:04 | Inpatient (IN) | payer MEDICARE ==
[2017-04-29 17:05] LABS: #Eosinphils 0.4 thou/uL (0.0-0.7); #Lymphocytes 1.1 thou/uL (1.20-3.40); #Monocytes 0.7 thou/uL (0.11-0.59); #Neutrophils 7.7 thou/uL (1.40-6.50); %Basophils 0.5 % (0.0-1.0); %Eosinophils 3.7 % (0.0-10.0); %Lymphocytes 11.2 % (21.0-51.0); %Monocytes 7.3 % (0.0-10.0); %Neutrophils 77.3 % (42.0-75.0); Hemoglobin 9.2 g/dL (14.0-18.0); Mean Corpuscular HGB CONC 30.9 g/dL (32.0-36.0); Mean Corpuscular Hemoglobin 28.2 pg (27.0-31.0); Mean Corpuscular Volume 91.2 fl (80.0-94.0); Mean Platelet Volume 6.4 fL (7.4-10.4); Platelet Count 434 thou/uL (130-400); RBC Distribution Width 18.6 % (11.5-14.5); Red Blood Cell (RBC) Count 3.26 mill/uL (4.70-6.10); White Blood Cell (WBC) Count 9.9 thou/uL (4.8-10.8)
[2017-04-29 17:28] LABS: ALT (SGPT) 11 U/L (8-55); AST (SGOT) 14 U/L (5-34); Albumin 3.4 g/dL (3.5-5.0); Alkaline Phosphatase 117 U/L (40-150); Anion Gap 10 mmol/L (10-20); BUN (Urea Nitrogen) 15 mg/dL (8.4-25.7); Bilirubin, Total 0.2 mg/dL (0.2-1.2); Calc. Creatinine Clearance 0 mL/min (70-130); Calcium 10.2 mg/dL (7.8-10.44); Carbon Dioxide 23 mmol/L (22-29); Chloride 104 mmol/L (98-107); Estimated GFR-MDRD Greater than 90; Globulin 3.3 g/dL (2.4-3.5); Glucose 90 mg/dL (70-105); Protein, Total 6.7 g/dL (6.0-8.3); Sodium 133 mmol/L (136-145)
[2017-04-29 18:12] LABS: Prothrombin Time 13.6 SEC (12.0-14.7)
[2017-04-29] MEDS ORDERED: METHadone HCl 10 MG TAB PO SCH (19:45)
[2017-04-29] MEDS ORDERED: HYDROcodone/Acetaminophen 10/325 mg Tablet ONE (22:28)
[2017-04-30] MEDS ORDERED: hydrALAZINE 20 MG/ML VIAL SLOW IVP PRN (00:10)
[2017-04-30] MEDS ORDERED: Ondansetron ODT 4 MG TAB PO PRN (00:10)
[2017-04-30] MEDS ORDERED: Acetaminophen 325 MG TAB PO PRN (00:10)
[2017-04-30] MEDS ORDERED: Temazepam 15 MG CAP PO PRN (00:10)
[2017-04-30] MEDS ORDERED: Sodium Chloride 0.9% 1,000 ML IV SCH (00:10)
[2017-04-30] MEDS ORDERED: Mag-Al 1200 mg/1200 mg/30 ML UDCUP PO PRN (00:10)
[2017-04-30] MEDS ORDERED: Ondansetron HCl/PF 4 MG/2 ML Vial IVP PRN ×2 (00:10)
[2017-04-30] MEDS ORDERED: Ondansetron ODT 4 MG TAB SL PRN (00:10)
[2017-04-30] MEDS ORDERED: HYDROcodone/Acetaminophen 10/325 mg Tablet PO PRN (00:12)
[2017-04-30] MEDS: Sodium Chloride 0.9% 1,000 ML IV SCH ×2 (00:15→15:13)
--- NOTE | 2017-04-30 00:37 | HP ---
PRIMARY CARE PHYSICIAN: The patient does not have a primary care physician. ONCOLOGIST: Dr. Flor. CHIEF COMPLAINT: Rectal bleeding. HISTORY OF PRESENT ILLNESS: Mr. Canada is a pleasant 56-year-old gentleman that has a history of janna ocarcinoma of the colon which is stage IV, which is metastatic to the liver and the lungs. He was re cently seen in our facility for chest pain and at that time he was having some rectal bleeding. He w as seen by the road service locksmith at that time Dr. Ontiveros and given the size of the tumor and location , it was felt that endoscopic options were limited in the patient and it was felt that it was best to treat this tumor and bleeding medically with chemotherapy and radiation. The patient was discharged and since then he has had some rectal bleeding some of which he felt like was fairly severe with shanique e blood clots on several occasions; however, when asked when the last time he had any rectal bleeding , he says it was actually 2 days ago and he has not bled since and when asked why he came to the hosp ital, his actually turns in and says that he has been feeling weak and he has been having diarrh ea. He seems like he was not breathing right. He was talking about wanting to and was not feeli ng right. He also mentions that he has been out of his pain medications for about a week and basical ly this is actually when the diarrhea started. It is noted that his hemoglobin is actually higher to day than it was when he was discharged about a week ago. REVIEW OF SYSTEMS: Constitutional: There have been no fevers, chills, night sweats, no weight loss. HEENT: No headaches, no dizziness, no visual changes, no sore throat, rhinorrhea, neck pain, no ad enopathy. Pulmonary: No hemoptysis, no cough, no wheezing. Cardiovascular: He denies any chest pain, no shortness of breath, no PND, no orthopnea. Gastrointes tinal: As the history of present illness. There has also been no nausea, no vomiting. Musculoskele meena: No muscle pains, weakness or joint pains. Neurologic: No focal weakness, numbness, no seizure s. Psychiatric: No symptoms of anxiety or depression. Skin and Integument: No skin changes. No rash. PAST MEDICAL HISTORY: Significant for stage IV adenocarcinoma of the colon with metastasis to liver and lungs. PAST SURGICAL HISTORY: He has had a laparotomy for what sounds like a bowel obstruction right arm, r epair of a fracture. SOCIAL HISTORY: He is a nonsmoker, nondrinker. He is . CODE STATUS: FULL CODE. FAMILY HISTORY: No history of any inheritable disease other than stomach cancer in his brother. MEDICATIONS: Methadone 10 mg t.i.d., [place] 10/325 q.4 hours as needed, and Zofran. ALLERGIES: No known drug allergies. PHYSICAL EXAMINATION: GENERAL: He is alert and oriented. He appears to be in no acute distress. VITAL SIGNS: Blood pressure was 113/74, heart rate ranged from 128-100, respiratory rate of 20, temp erature is 98.8. HEENT: Pupils are equal, round, and reactive. Extraocular muscles are intact. His sclerae are anic teric. Throat: No erythema, no exudates. NECK: No adenopathy, no bruits. LUNGS: Clear. No wheezing, no rales. CARDIOVASCULAR: He has a normal S1, S2. There is no S3 or S4. No murmurs, clicks or rubs. ABDOMEN: Soft, it is nontender, nondistended. There is a midline abdominal scar. There is no rebou nd, no guarding. EXTREMITIES: There is no clubbing, cyanosis, no edema. NEUROLOGICALLY: The exam is nonfocal. SIGNIFICANT LABORATORY AND X-RAY FINDINGS: White blood cell count 9.9, hemoglobin 9.2, hematocrit is 29.8, platelet count is 434. INR is 1.0. Sodium 133, potassium 4.0, chloride is 104, CO2 is 23, BU N of 15, creatinine 0.75, glucose is 90. ASSESSMENT AND PLAN: This is a pleasant 56-year-old gentleman that presents to the emergency room wi th rectal bleeding which has since resolved. The patient also has rectal pain, but he has been out o f his medications for pain for about a week. He also is complaining of diarrhea, but I suspect this could likely be the result of withdrawal from the opiate medications. The patient will be placed in observation. We will restart him on methadone as well as Bayfield as needed for pain. Hopefully, the d iarrhea should resolve with the re-institution of his opiate pain medications. The rectal bleeding a ppears to have actually abated and again his hemoglobin is actually higher than it was on his previou s admission. We will just observe for now. We will likely consult Dr. Flor in the a.m., and hop efully if his pain is controlled, as well as the diarrhea has improved then hopefully later on tomorr ow afternoon, he can be discharged home.
[2017-04-30 00:48] VITALS: BMI 19.9
[2017-04-30] MEDS: HYDROcodone/Acetaminophen 10/325 mg Tablet PO PRN ×5 (03:48→21:32)
[2017-04-30 05:41] LABS: #Eosinphils 0.4 thou/uL (0.0-0.7); #Monocytes 0.7 thou/uL (0.11-0.59); #Neutrophils 7.2 thou/uL (1.40-6.50); %Basophils 0.4 % (0.0-1.0); %Eosinophils 4.5 % (0.0-10.0); %Lymphocytes 10.8 % (21.0-51.0); %Monocytes 7.2 % (0.0-10.0); %Neutrophils 77.2 % (42.0-75.0); Hemoglobin 8.7 g/dL (14.0-18.0); Mean Corpuscular HGB CONC 31.8 g/dL (32.0-36.0); Mean Corpuscular Hemoglobin 29.3 pg (27.0-31.0); Mean Platelet Volume 6.4 fL (7.4-10.4); Platelet Count 392 thou/uL (130-400); RBC Distribution Width 18.3 % (11.5-14.5); Red Blood Cell (RBC) Count 2.97 mill/uL (4.70-6.10); White Blood Cell (WBC) Count 9.3 thou/uL (4.8-10.8)
[2017-04-30] MEDS: METHadone HCl 10 MG TAB PO SCH ×3 (05:45→22:09)
[2017-04-30] MEDS ORDERED: METHadone HCl 10 MG TAB PO SCH (06:00)
--- NOTE | 2017-04-30 09:39 | PDOC.PN ---
- Subjective Encounter Start Date: 04/30/17 Encounter Start Time: 09:37 Subjective: rectal bleeding has stopped - Objective Resuscitation Status: Resuscitation Status FULL:Full Resuscitation MAR Reviewed: Yes Vital Signs & Weight: Vital Signs (12 hours) Temp Pulse Resp BP BP BP Pulse Ox 04/30/17 08:07 98.9 F 93 20 124/84 99 04/30/17 08:05 98.9 F 93 20 124/84 99 04/30/17 03:51 97.7 F 102 H 20 135/91 H 98 04/30/17 00:10 97.9 F 100 18 113/75 99 04/30/17 00:05 97.9 F 100 18 Weight Weight 151 lb 1.6 oz I&O: 04/29/17 04/30/17 05/01/17 06:59 06:59 06:59 Intake Total 1115 Balance 1115 Result Diagrams: 04/30/17 05:16 04/29/17 16:51 Phys Exam - Physical Examination Neck: no JVD Respiratory: clear to auscultation bilateral Cardiovascular: RRR, no significant murmur Gastrointestinal: soft, positive bowel sounds Musculoskeletal: no edema Dx/Plan (1) BRBPR (bright red blood per rectum) Code(s): K62.5 - HEMORRHAGE OF ANUS AND RECTUM Status: Acute (2) Normocytic anemia due to blood loss Code(s): D50.0 - IRON DEFICIENCY ANEMIA SECONDARY TO BLOOD LOSS (CHRONIC) Status: Acute Comment: 2/2 recent rectal bleed. Being transfused as necessary poer oncology. (3) Physical deconditioning Code(s): R53.81 - OTHER MALAISE Status: Chronic Comment: 2/2 advanced adenocarcinoma. PT/OT on board. CM on board as well regarding rehab (4) Protein calorie malnutrition Code(s): E46 - UNSPECIFIED PROTEIN-CALORIE MALNUTRITION Status: Chronic Qualifiers: Protein-calorie malnutrition severity: moderate Comment: 2/2 malignancy. Dietary supplements implemented. Remeron. (5) Rectal adenocarcinoma metastatic to liver Code(s): C20 - MALIGNANT NEOPLASM OF RECTUM; C78.7 - SECONDARY MALIG NEOPLASM OF LIVER AND INTRAHEPATIC BILE DUCT Status: Chronic Comment: Undergoing chemotherapy and radiation therapy. - Plan Hg 8.7, no transfusion at this time -: discuss with oncology * .
--- NOTE | 2017-04-30 14:11 | CON ---
DATE OF CONSULTATION: 04/30/2017 REASON FOR CONSULTATION: Rectal cancer. HISTORY OF PRESENT ILLNESS: Mr. Canada is a 56-year-old -Luxembourger male who has moderately diff erentiated adenocarcinoma of the rectum with mets to liver and lung. He initially underwent treatmen t with Xeloda and radiation therapy. He then began palliative chemotherapy with FOLFOX and Avastin. He has received 4 cycles. His last cycle was at this facility on 04/06/2017. After that visit, he had a short stay in the rehabilitation. He then underwent an outpatient hemorrhoidectomy and was imp roving until a few days ago when he had some bright red blood per rectum. He presented to this [facility] it for this bleeding and generalized weakness. Since admission, he has had no bleeding. He has bee n out of his pain medication which is managed by a pain specialist and he has been having a bit of di arrhea that has also resolved. He was started on Megace and has weight gain and increased appetite. Denies any shortness of breath, no chest pain, no abdominal pain at this time. PAST MEDICAL HISTORY: 1. Stage IV rectal adenocarcinoma. 2. Liver disease. PAST SURGICAL HISTORY: 1. Near total colectomy for polyps in 1990. 2. Hemorrhoidectomy. 3. MediPort placement. ALLERGIES: No known drug allergies. HOME MEDICATIONS: 1. Hydrocodone p.r.n. 2. Megestrol 400 mg b.i.d. 3. Methadone 30 mg q.8 hours. 4. Remeron 30 mg daily. FAMILY HISTORY: Diabetes. SOCIAL HISTORY: Single, has 3 children, lives with his significant other. Current everyday smoker. No alcohol or illicit drug use. REVIEW OF SYSTEMS: Twelve point review of systems is negative except for noted in HPI. PHYSICAL EXAMINATION: VITAL SIGNS: Temperature is 97.9, pulse is 99, respiratory rate 20, BP is 116/86. GENERAL: This is a thin -Luxembourger male in no acute distress. HEENT: Normocephalic, atraumatic. Pupils are equal and reactive to light. NECK: Supple. CARDIOVASCULAR: Regular rate and rhythm. LUNGS: Clear. ABDOMEN: Soft, nontender, bowel sounds are positive. EXTREMITIES: No clubbing, cyanosis or edema. SKIN: No rash. HEMATOLOGIC: No petechia or purpura. NEUROLOGIC: Nonfocal. PSYCHIATRIC: The patient is alert and oriented and appropriate. PERTINENT LABORATORY DATA AND X-RAYS: Current WBCs are 9.3, hemoglobin 8.7, hematocrit 27.3, platele t count 394,000. He has got 77% neutrophils, 11% lymphocytes. PT is 13.6, INR is 1.0, PTT is 29. S odium is 133, potassium 4.0, chloride 104, CO2 is 23, BUN is 15, creatinine 0.75, and calcium is 10.2 . Total bilirubin is 0.2, AST is 14, ALT 11, alkaline phosphatase is 117, serum total protein 6.7, a lbumin 3.4, and globulin 3.3. IMPRESSION: 1. Metastatic rectal carcinoma. 2. Recent hemorrhoidectomy. 3. Rectal bleeding. DISCUSSION: The patient has had no bleeding since admission. He is feeling better. He is able to g et his narcotic pain medication from his pain management doctor tomorrow. He is due for chemotherapy treatment, but needs to be seen by Dr. Flor prior to chemo. Discussion with patient and signreji serna other they are agreeable to go home in a.m. to follow up with Dr. Flor next week for chemoth jennifer in the outpatient setting. Thank you for the consult.
[2017-04-30] MEDS: Megestrol Acetate 800 MG/20 ML UDCUP PO SCH (21:28)
[2017-05-01] MEDS: HYDROcodone/Acetaminophen 10/325 mg Tablet PO PRN ×3 (02:18→13:18)
[2017-05-01] MEDS: METHadone HCl 10 MG TAB PO SCH (05:42)
[2017-05-01] MEDS: Megestrol Acetate 800 MG/20 ML UDCUP PO SCH (08:13)
[2017-05-01 08:26] VITALS: BP 151/100; TEMP 99
--- NOTE | 2017-05-01 11:30 | DIS ---
ADMISSION DIAGNOSES: 1. Metastatic rectal carcinoma. 2. Rectal bleeding. 3. Recent hemorrhoidectomy. DISCHARGE DIAGNOSES: 1. Metastatic rectal carcinoma. 2. Rectal bleeding, likely hemorrhoidal in nature. 3. Recent hemorrhoidectomy. HOSPITAL COURSE: While patient was in hospital, the patient was monitored closely with regard to his H and H. Serial H and Hs were done, which remained stable during this hospital stay. GI was also c onsulted for their expertise. Due to the patient not having any further bleeding since prior to admi ssion, there were no procedures or further interventions required at this time. GI felt that the genny del angel could be discharged home to follow up with his oncologist to continue chemotherapy. Patient was being managed here due to his pain from cancer. Patient had ran out of his pain medications, but st ated that he could get his pain medications from his pain management doctor. Because the patient was hemodynamically stable and no further interventions were required, we will comfortably discharge thi s patient home. Therefore, he can get his medications today prior to the weekend so that he can have just prior to undergoing further chemotherapy. All questions were answered prior to discharge. The patient was instructed to follow with primary care physician in 1 week. FOLLOWUP APPOINTMENTS: The patient will follow up with his oncologist per their recommendations. David arzola will also follow up with pain management doctor today. Patient will also follow up with primar y care physician in 1 week. DISCHARGE CONDITION: Much improved from when he first came in. DISCHARGE DIET: As tolerated. DISCHARGE MEDICATIONS: Please see medication list. DISCHARGE ACTIVITY: As tolerated. DISPOSITION: To home. DISCHARGE PLAN: Discharge plan was greater than 30 minutes.
== END 2017-05-01 13:38 | disposition home or self-care (01) | DRG 394 ==
LOC: ERS 16:04 → ONC 21:28
PROVIDERS: ADMIT Internal Medicine; ATTEND Internal Medicine
DX: K64.9 Unspecified hemorrhoids (principal); C20 Malignant neoplasm of rectum; C78.00 Secondary malignant neoplasm of unspecified lung; C78.7 Secondary malignant neoplasm of liver and intrahepatic bile duct; E44.0 Moderate protein-calorie malnutrition; D50.0 Iron deficiency anemia secondary to blood loss (chronic); F17.210 Nicotine dependence, cigarettes, uncomplicated; G89.3 Neoplasm related pain (acute) (chronic); K62.5 Hemorrhage of anus and rectum; Z68.1 Body mass index [BMI] 19.9 or less, adult
CPT/HCPCS: 36415; 80053; 85025; 85610; 85730; 86850; 86900; 86901; 96361; 96374; J2270

== ENCOUNTER 2017-05-25 08:56 | Day surgery (SDC) | payer MEDICARE ==
[2017-05-25] MEDS ORDERED: Sodium Chloride 0.9% 20 ML ONE (09:15)
[2017-05-25] MEDS ORDERED: OXALIPLATIN IVPB SCH ×3 (09:30)
[2017-05-25] MEDS ORDERED: DEXTROSE IVPB SCH ×6 (09:30→09:45)
[2017-05-25] MEDS ORDERED: Ondansetron HCl/PF 4 MG/2 ML Vial IVP SCH (09:30)
[2017-05-25] MEDS ORDERED: WATER IVPB SCH ×6 (09:30→09:45)
[2017-05-25] MEDS ORDERED: Dexamethasone 10 MG/ML VIAL SLOW IVP SCH (09:30)
[2017-05-25] MEDS ORDERED: ADMIXTURE FEE IVPB SCH ×8 (09:30→10:00)
[2017-05-25] MEDS ORDERED: FLUOROURACIL IVPB SCH ×3 (09:45)
[2017-05-25] MEDS ORDERED: BEVACIZUMAB IVPB SCH ×2 (09:45→10:00)
[2017-05-25] MEDS ORDERED: SODIUM CHLORIDE IVPB SCH ×2 (09:45→10:00)
[2017-05-25 09:52] VITALS: BP 123/82
[2017-05-25] MEDS ORDERED: ONDANSETRON IVPB SCH (10:00)
[2017-05-25] MEDS ORDERED: SODIUM CHLORIDE 0.9% IVPB SCH (10:00)
[2017-05-25] MEDS ORDERED: DEXAMETHASONE IVPB SCH (10:00)
[2017-05-25] MEDS ORDERED: Admixture Fee 1 EACH in Dextrose 5% in Water 10 ML IV SCH ×2 (10:00)
== END 2017-05-25 15:43 | disposition home or self-care (01) ==
LOC: ONC/OP 08:56
PROVIDERS: ATTEND Internal Medicine Medical Oncology
DX: Z51.11 Encounter for antineoplastic chemotherapy (principal); C20 Malignant neoplasm of rectum; C18.9 Malignant neoplasm of colon, unspecified; C78.7 Secondary malignant neoplasm of liver and intrahepatic bile duct; C78.02 Secondary malignant neoplasm of left lung; C78.01 Secondary malignant neoplasm of right lung; Z79.2 Long term (current) use of antibiotics; Z79.891 Long term (current) use of opiate analgesic; Z79.899 Other long term (current) drug therapy
CPT/HCPCS: 96367; 96413; 96415; 96416; 96417; A4216; J1100; J2405; J7050; J7070; J9035; J9190; J9263

== ENCOUNTER 2017-06-08 09:49 | Day surgery (SDC) | payer MEDICARE ==
[2017-06-08] MEDS ORDERED: FLUOROURACIL IVPB SCH ×3 (10:15)
[2017-06-08] MEDS ORDERED: DEXTROSE IVPB SCH ×6 (10:15)
[2017-06-08] MEDS ORDERED: Ondansetron HCl/PF 4 MG/2 ML Vial IVP SCH (10:15)
[2017-06-08] MEDS ORDERED: ADMIXTURE FEE IVPB SCH ×7 (10:15)
[2017-06-08] MEDS ORDERED: WATER IVPB SCH ×6 (10:15)
[2017-06-08] MEDS ORDERED: Dexamethasone 10 MG/ML VIAL SLOW IVP SCH (10:15)
[2017-06-08] MEDS ORDERED: SODIUM CHLORIDE IVPB SCH (10:15)
[2017-06-08] MEDS ORDERED: BEVACIZUMAB IVPB SCH (10:15)
[2017-06-08] MEDS ORDERED: OXALIPLATIN IVPB SCH ×3 (10:15)
[2017-06-08] MEDS ORDERED: Sodium Chloride 0.9% 20 ML ONE (10:18)
[2017-06-08] MEDS ORDERED: Admixture Fee 1 EACH in Dextrose 5% in Water 10 ML IV SCH ×2 (10:30)
[2017-06-08] MEDS ORDERED: DEXAMETHASONE IVPB SCH (10:45)
[2017-06-08] MEDS ORDERED: ONDANSETRON IVPB SCH (10:45)
[2017-06-08] MEDS ORDERED: SODIUM CHLORIDE 0.9% IVPB SCH (10:45)
== END 2017-06-08 16:15 | disposition home or self-care (01) ==
LOC: ONC/OP 09:49
PROVIDERS: ATTEND Internal Medicine Medical Oncology
DX: Z51.11 Encounter for antineoplastic chemotherapy (principal); C20 Malignant neoplasm of rectum; C78.7 Secondary malignant neoplasm of liver and intrahepatic bile duct; C78.00 Secondary malignant neoplasm of unspecified lung; K76.9 Liver disease, unspecified; Z79.899 Other long term (current) drug therapy; Z98.890 Other specified postprocedural states
CPT/HCPCS: 96367; 96413; 96415; 96416; 96417; A4216; J1100; J2405; J7050; J7070; J9035; J9190; J9263

== ENCOUNTER 2017-06-24 11:20 | Outpatient (CLI) | payer MEDICARE ==
[~2017-06-24 11:20] MED LIST: Iopamidol 370 76% 100 ML VIAL ONE
--- NOTE | 2017-06-24 15:50 | CT ---
CT CHEST WITH IV CONTRAST CT ABDOMEN AND PELVIS WITH IV CONTRAST: DATE: 06/24/17. HISTORY: Rectal cancer with liver and lung metastatic disease. The patient is currently on chemotherapy. COMPARISON: 04/04/17. FINDINGS: CT THORAX: There are scattered subcentimeter pulmonary nodules seen throughout the lungs bilaterally, the majori ty of which are stable in size. There has been interval enlargement of a left lower lobe pulmonary n odule previously measuring 7 mm and now measures approximately 9 mm. The larger pulmonary nodules wi thin the right upper lobe are again seen, the largest of which is pleural-based and ajacent to the st ernum which measures 11 mm. Pulmonary nodule also in the upper lobe adjacent to the minor fissure is present measuring 9 mm. There appears to be slight interval enlargement of a pulmonary nodule media l left lower lobe. This measured 4 mm and now measures 5 mm. The pulmonary nodule lateral aspect of the right upper lobe previously demonstrated lucency centrally, and this is no longer visualized on this exam. No definite new pulmonary nodule is seen. No pleural effusion is seen. There is no evidence of lymphadenopathy. No lytic or sclerotic osseous lesion is appreciated. CT ABDOMEN AND PELVIS: The previously described multiple hypodense hepatic lesions are again seen, some of which demonstrate ill-defined enhancement centrally. The number of lesions is stable from the prior study and the pre viously seen lesions are overall stable in size, although the surrounding area of abnormal density sawyer rrounding the region anterior segment of the right hepatic lobe does appear smaller in size. However , these lesions are otherwise unchanged in size or appearance. The common duct remains dilated measuring 11 mm. No pancreatic head mass is appreciated on this exam . The spleen, pancreas, bilateral adrenal glands, kidneys, and abdominal aorta have a normal CT appeara nce. Vascular calcifications are seen in the iliac arteries. Perirectal inflammatory changes/edema are seen and not significantly progressed from the prior exam. The eccentric perirectal thickening is again seen likely related to patient's known rectal mass. There is a question of postsurgical changes related to partial colectomy. Incidental note is made of a retroaortic left renal vein. There is no evidence of lymphadenopathy. The urinary bladder is decompressed. While the urinary bladder galeana appear thickened, this is likel y attributable to the incomplete distention. No lytic or sclerotic osseous lesions are seen. There is pseudoarticulation of the left lateral mass of L5 with S1. A few punctate 3 mm calcifications are seen in the mid portion right kidney suggesting nonobstructing right renal calculi. IMPRESSION: 1. Interval slight enlargement of the few left lower lobe pulmonary nodules with slight interval enl argement of a pulmonary nodule medial aspect inferior right lower lobe. The remaining pulmonary nodu les are overall similar in size to the prior exam, and no definite new pulmonary nodules are apprecia eva. 2. Overall stable hepatic metastatic lesions. No new hepatic lesions are appreciated. 3. Tiny pericardial effusion. 4. Nonobstructing right renal calculi and subcentimeter too small to characterize hypodense lesions in the right kidney. 5. Suggestion of prior partial colectomy, and there is asymmetric thickening involving the rectum wh ich could potentially represent patient's known rectal mass, but this would be better assessed on col onoscopy. Stable perirectal inflammatory changes and fluid are present. 6. No evidence of lymphadenopathy. 7. Tiny pericardial effusion. POS: [facility]
== END 2017-06-24 11:21 | disposition home or self-care (01) ==
LOC: CT 11:20
PROVIDERS: ATTEND Internal Medicine Medical Oncology
DX: C20 Malignant neoplasm of rectum (principal); C78.7 Secondary malignant neoplasm of liver and intrahepatic bile duct; C78.00 Secondary malignant neoplasm of unspecified lung; N20.0 Calculus of kidney; R91.8 Other nonspecific abnormal finding of lung field
CPT/HCPCS: 71260; 74177

== ENCOUNTER 2017-06-29 10:16 | Day surgery (SDC) | payer MEDICARE ==
[2017-06-29] MEDS ORDERED: Sodium Chloride 0.9% 50 ML ONE (11:45)
[2017-06-29] MEDS ORDERED: Ondansetron HCl/PF 10 MG in Sodium Chloride 0.9% 50 ML IVPB SCH (12:15)
[2017-06-29] MEDS ORDERED: Dexamethasone 20 MG in Sodium Chloride 0.9% 50 ML IVPB SCH ×3 (12:15)
[2017-06-29] MEDS ORDERED: WATER IVPB SCH ×2 (12:15)
[2017-06-29] MEDS ORDERED: FLUOROURACIL IVPB SCH ×2 (12:15)
[2017-06-29] MEDS ORDERED: Oxaliplatin 200 MG in Dextrose 5% in Water 500 ML IVPB SCH ×2 (12:15)
[2017-06-29] MEDS ORDERED: DEXTROSE 5% IVPB SCH ×2 (12:15)
[2017-06-29] MEDS ORDERED: Admixture Fee 1 EACH in Dextrose 5% in Water 10 ML IV SCH (12:30)
[2017-06-29] MEDS ORDERED: DEXAMETHASONE IVPB SCH (12:30)
[2017-06-29] MEDS ORDERED: BEVACIZUMAB IVPB SCH (12:30)
[2017-06-29] MEDS ORDERED: ONDANSETRON HCL IVPB SCH (12:30)
[2017-06-29] MEDS ORDERED: SODIUM CHLORIDE 0.9% IVPB SCH ×2 (12:30)
[2017-06-29 14:27] VITALS: BP 126/80; TEMP 98
== END 2017-06-29 16:48 | disposition home or self-care (01) ==
LOC: ONC/OP 10:16
PROVIDERS: ATTEND Internal Medicine Medical Oncology
DX: Z51.11 Encounter for antineoplastic chemotherapy (principal); C20 Malignant neoplasm of rectum; C78.7 Secondary malignant neoplasm of liver and intrahepatic bile duct; C78.00 Secondary malignant neoplasm of unspecified lung; F17.200 Nicotine dependence, unspecified, uncomplicated; Z98.890 Other specified postprocedural states
CPT/HCPCS: 96367; 96413; 96415; 96417; A4216; J1100; J1642; J2405; J7050; J7070; J9035; J9190; J9263

== ENCOUNTER 2017-07-16 14:41 | Day surgery (SDC) | payer MEDICARE ==
[2017-07-16] MEDS ORDERED: Sodium Chloride 0.9% 50 ML ONE (15:12)
[2017-07-16] MEDS ORDERED: FLUOROURACIL IVPB SCH (15:15)
[2017-07-16] MEDS ORDERED: ONDANSETRON HCL IVPB SCH (15:15)
[2017-07-16] MEDS ORDERED: BEVACIZUMAB IVPB SCH (15:15)
[2017-07-16] MEDS ORDERED: Oxaliplatin 200 MG in Dextrose 5% in Water 500 ML IVPB SCH (15:15)
[2017-07-16] MEDS ORDERED: DEXTROSE 5% IVPB SCH (15:15)
[2017-07-16] MEDS ORDERED: DEXAMETHASONE IVPB SCH (15:15)
[2017-07-16] MEDS ORDERED: SODIUM CHLORIDE 0.9% IVPB SCH ×2 (15:15)
[2017-07-16] MEDS ORDERED: WATER IVPB SCH (15:15)
[2017-07-16] MEDS ORDERED: Admixture Fee 1 EACH in Dextrose 5% in Water 10 ML IV SCH (15:45)
== END 2017-07-16 19:24 | disposition home or self-care (01) ==
LOC: ONC/OP 14:41
PROVIDERS: ATTEND Internal Medicine Medical Oncology
DX: Z51.11 Encounter for antineoplastic chemotherapy (principal); C20 Malignant neoplasm of rectum; K76.9 Liver disease, unspecified; Z79.899 Other long term (current) drug therapy
CPT/HCPCS: 36415; 80053; 82248; 82378; 83615; 84100; 84550; 96375; 96413; 96415; 96416; 96417; A4216; J1100; J2405; J7050; J7070; J9035; J9190; J9263

== ENCOUNTER 2017-08-04 08:47 | Day surgery (SDC) | payer MEDICARE ==
[2017-07-31 14:48] VITALS: BMI 19.6
[2017-08-04] MEDS ORDERED: PROPOFOL 200 MG/20 ML VIAL ONE (11:11)
--- NOTE | 2017-08-04 18:15 | OP ---
DATE OF PROCEDURE: 08/04/2017 PREOPERATIVE DIAGNOSES: Intractable rectal pain and rectal cancer. PROCEDURE IN DETAIL: Informed consent was obtained from the patient. He was sedated with total intr avenous anesthesia. Rectal exam was performed and revealed a firm mass in the rectum. The endoscope was advanced into the rectum where there was a large necrotic base ulcer present. In the base of th is ulcer, there was a 1 cm opening with a white structure at the other side of the base . The b owel mucosa proximal to the ulcer was unremarkable and biopsies were obtained from the edge of the ul cer and base of the ulcer. IMPRESSION: 1. Rectal ulcer, biopsied. 2. A 1-cm opening at the base of the ulcer with a white stricture at the other side of this opening. This likely represents a chronic perforation and is related to his chronic pain. CT scan from [facility] did show inflammatory changes and fluid collection around the rectum. This was in the very distal only a centimeter or so inside. 3. Intractable rectal pain in a patient with metastatic colon cancer. RECOMMENDATIONS: I will discuss this case with his music artist, Dr. Flor.
== END 2017-08-04 11:50 | disposition home or self-care (01) ==
LOC: SDC 08:47
PROVIDERS: ATTEND Internal Medicine Gastroenterology
PROC: 0DBP8ZX Excision of Rectum, Via Natural or Artificial Opening Endoscopic, Diagnostic (ICD-10-PCS; principal; 2017-08-04)
DX: C20 Malignant neoplasm of rectum (principal); C18.9 Malignant neoplasm of colon, unspecified; C78.7 Secondary malignant neoplasm of liver and intrahepatic bile duct; C78.02 Secondary malignant neoplasm of left lung; C78.01 Secondary malignant neoplasm of right lung; Z98.890 Other specified postprocedural states
CPT/HCPCS: 88305; J2704

== ENCOUNTER 2017-08-10 11:11 | Day surgery (SDC) | payer MEDICARE ==
[2017-08-10] MEDS ORDERED: WATER IVPB SCH (11:30)
[2017-08-10] MEDS ORDERED: Oxaliplatin 200 MG in Dextrose 5% in Water 500 ML IVPB SCH (11:30)
[2017-08-10] MEDS ORDERED: FLUOROURACIL IVPB SCH (11:30)
[2017-08-10] MEDS ORDERED: DEXAMETHASONE IVPB SCH (11:30)
[2017-08-10] MEDS ORDERED: SODIUM CHLORIDE 0.9% IVPB SCH ×2 (11:30→11:45)
[2017-08-10] MEDS ORDERED: DEXTROSE 5% IVPB SCH (11:30)
[2017-08-10] MEDS ORDERED: ONDANSETRON IVPB SCH (11:30)
[2017-08-10] MEDS ORDERED: Sodium Chloride 0.9% 50 ML ONE (11:40)
[2017-08-10] MEDS ORDERED: BEVACIZUMAB IVPB SCH (11:45)
[2017-08-10] MEDS ORDERED: Admixture Fee 1 EACH in Dextrose 5% in Water 10 ML IV SCH (12:00)
[2017-08-10 12:08] VITALS: BP 122/72; TEMP 97.6
== END 2017-08-10 18:03 | disposition home or self-care (01) ==
LOC: ONC/OP 11:11
PROVIDERS: ATTEND Internal Medicine Medical Oncology
DX: Z51.11 Encounter for antineoplastic chemotherapy (principal); C20 Malignant neoplasm of rectum; F17.200 Nicotine dependence, unspecified, uncomplicated; Z79.899 Other long term (current) drug therapy
CPT/HCPCS: 96367; 96413; 96415; 96416; 96417; A4216; J1100; J2405; J7050; J7070; J9035; J9190; J9263

== ENCOUNTER 2017-08-15 19:06 | Observation (INO) | payer MEDICARE ==
[2017-08-15 19:50] LABS: #Eosinphils 0.5 thou/uL (0.0-0.7); #Lymphocytes 1.1 thou/uL (1.20-3.40); #Monocytes 0.8 thou/uL (0.11-0.59); #Neutrophils 6.9 thou/uL (1.40-6.50); %Basophils 0.2 % (0.0-1.0); %Eosinophils 5.4 % (0.0-10.0); %Lymphocytes 11.9 % (21.0-51.0); %Monocytes 8.1 % (0.0-10.0); %Neutrophils 74.3 % (42.0-75.0); Hemoglobin 11.1 g/dL (14.0-18.0); Mean Corpuscular HGB CONC 32.6 g/dL (32.0-36.0); Mean Corpuscular Hemoglobin 28.4 pg (27.0-31.0); Mean Platelet Volume 6.7 fL (7.4-10.4); Platelet Count 366 thou/uL (130-400); Red Blood Cell (RBC) Count 3.91 mill/uL (4.70-6.10); White Blood Cell (WBC) Count 9.3 thou/uL (4.8-10.8)
[2017-08-15 20:14] LABS: ALT (SGPT) 10 U/L (8-55); AST (SGOT) 21 U/L (5-34); Albumin 3.8 g/dL (3.5-5.0); Alkaline Phosphatase 182 U/L (40-150); Anion Gap 10 mmol/L (10-20); BUN (Urea Nitrogen) 6 mg/dL (8.4-25.7); Bilirubin, Total 0.5 mg/dL (0.2-1.2); Calc. Creatinine Clearance 0 mL/min (70-130); Calcium 11.6 mg/dL (7.8-10.44); Carbon Dioxide 32 mmol/L (22-29); Chloride 97 mmol/L (98-107); Estimated GFR-MDRD Greater than 90; Globulin 3.5 g/dL (2.4-3.5); Glucose 96 mg/dL (70-105); Protein, Total 7.3 g/dL (6.0-8.3); Sodium 137 mmol/L (136-145)
[2017-08-15 20:17] LABS: Potassium 2.3 mmol/L (3.5-5.1)
[2017-08-15] MEDS ORDERED: Potassium Chloride 20 MEQ TAB ONE (20:25)
--- NOTE | 2017-08-15 20:56 | PDOC.FPRHP ---
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 The patient reports that the pain is similar to his chronic rectal pain that is usually controlled with methadone and norco, but it is a little worse. He reports that the pain is constant. He endorses diarrhea, but denies melena or hematochezia. He denies abdominal pain, nausea, vomiting, fever , chills. The patient gets chemotherapy every 10 days, and his last dose was this past Thursday. He also had a recent colonoscopy on August 04 that showed a rectal ulcer that was likely contributing to his chronic rectal pain. ED Course: The patient was given 40mEq po KCl and 40mEq IV KCl as well as 4mg morphine in the ED. - Allergies/Adverse Reactions Allergies Allergy/AdvReac Type Severity Reaction Status Date / Time No Known Drug Allergies Allergy Verified 07/31/17 14:48 - Home Medications Medication Instructions Recorded Confirmed Type HYDROcodone/Acetaminophen 1 tab PO Q4HR PRN 01/22/17 07/31/17 History [Hydrocodone-Acetamin 10-325 mg] METHadone HCl 30 mg PO Q8HR 04/04/17 07/31/17 History Mirtazapine [Remeron] 30 mg PO HS tab 04/09/17 07/31/17 Rx Loperamide HCl [Imodium] 2 mg PO ASDIR PRN 07/31/17 07/31/17 History - History PMHx: 1. Stage IV Adenocarcinoma of Rectum with mets to liver and lungs, diagnosed in Oct 2016 PSHx: 1. R arm sx 2. Abd ex-lap FHx: Brother - colon cancer, stomach cancer Aunts - breast cancer Uncle - colon cancer Social: Smokes 2ppd for 30 years, denies EtOH or drug use PCP: none Oncologist: Chacho - Review of Systems General: reports: weight/appetite/sleep changes (Decreased appetite). denies: fever/chills Eyes: denies: eye pain ENT: denies: nasal congestion, rhinorrhea Respiratory: denies: cough, shortness of breath Cardiovascular: denies: chest pain, edema Gastrointestinal: reports: diarrhea. denies: nausea, vomiting, constipation, abdominal pain, GI bleeding Genitourinary: denies: dysuria, polyuria Skin: denies: rashes, lesions Musculoskeletal: denies: pain, tenderness Neurological: denies: syncope, seizure - Vital signs BP: 126/86 HR: 76 RR: 16 Tmax: 98.3 Pox: 98% on RA Wt: 68kg - Physical Exam Constitutional: NAD, awake, alert and oriented HEENT: normocephalic and atraumatic, PERRLA, EOMI, conjunctiva clear, grossly normal vision, normal nasal mucosa, MMM, oropharynx clear (poor dentition) Neck: supple, FROM, no LAD Heart: RRR, normal S1/S2, no murmurs/rubs/gallops, pulses present, no edema Lungs: CTAB, no respiratory distress, good air movement, no rales/rhonchi, no wheezing, no retractions Abdomen: soft, non-tender, bowel sounds present, no masses/distention, other ( midline scar from ex-lap) Musculoskeletal: normal structure, normal tone, ROM grossly normal Neurological: no focal deficit, CN II-XII intact Skin: good turgor, capillary refill <2 seconds Heme/Lymphatic: no unusual bruising or bleeding, no purpura Psychiatric: normal mood and affect, intact recent and remote memory FMR H&P: Results - Labs Result Diagrams: 08/16/17 04:57 08/16/17 14:21 Lab results: WBC 9.3 thou/uL (4.8-10.8) 08/15/17 19:40 Hgb 11.1 g/dL (14.0-18.0) L 08/15/17 19:40 Hct 34.0 % (42.0-52.0) L 08/15/17 19:40 MCV 87.0 fl (80.0-94.0) 08/15/17 19:40 Plt Count 366 thou/uL (130-400) 08/15/17 19:40 Neutrophils % 74.3 % (42.0-75.0) 08/15/17 19:40 Sodium 137 mmol/L (136-145) 08/15/17 19:40 Potassium 2.3 mmol/L (3.5-5.1) L* 08/15/17 19:40 Chloride 97 mmol/L (98-107) L 08/15/17 19:40 Carbon Dioxide 32 mmol/L (22-29) H 08/15/17 19:40 BUN 6 mg/dL (8.4-25.7) L 08/15/17 19:40 Creatinine 0.71 mg/dL (0.6-1.3) 08/15/17 19:40 Glucose 96 mg/dL (70-105) 08/15/17 19:40 Lactic Acid 1.1 mmol/L (0.5-2.2) 08/15/17 19:40 Calcium 11.6 mg/dL (7.8-10.44) H 08/15/17 19:40 Total Bilirubin 0.5 mg/dL (0.2-1.2) 08/15/17 19:40 AST 21 U/L (5-34) 08/15/17 19:40 ALT 10 U/L (8-55) 08/15/17 19:40 Alkaline Phosphatase 182 U/L (40-150) H 08/15/17 19:40 Serum Total Protein 7.3 g/dL (6.0-8.3) 08/15/17 19:40 Albumin 3.8 g/dL (3.5-5.0) 08/15/17 19:40 FMR H&P: A/P - Problem List (1) Hypokalemia Current Visit: No Status: Acute Code(s): E87.6 - HYPOKALEMIA (2) Rectal adenocarcinoma metastatic to liver Current Visit: No Status: Chronic Code(s): C20 - MALIGNANT NEOPLASM OF RECTUM; C78.7 - SECONDARY MALIG NEOPLASM OF LIVER AND INTRAHEPATIC BILE DUCT Comment: Undergoing chemotherapy and radiation therapy. (3) Hypercalcemia Current Visit: No Status: Chronic Code(s): E83.52 - HYPERCALCEMIA (4) Normocytic anemia Current Visit: Yes Status: Chronic Code(s): D64.9 - ANEMIA, UNSPECIFIED (5) Tobacco abuse Current Visit: Yes Status: Chronic Code(s): Z72.0 - TOBACCO USE - Plan 1. Hypokalemia Initial K+ was 2.3, likely 2/2 poor PO intake with diarrhea. Pt s/p 40mEq PO KCl and 40mEq IV KCl in the ED. -Will monitor -Replete as needed -Check Magnesium 2. Rectal Pain 2/2 Rectal Adenocarcinoma The patient has chronic rectal pain. Rectal exam done in the ED showed no signs of abscess or necrosis. FOBT was positive. He is treated with methadone and norco chronically for his pain. -Continue home pain regimen -If pt has breakthrough pain, then consider morphine prn 3. Hypercalcemia 2/2 malignancy. Ca 11.6 on admission -Will continue to monitor -LR @ 110 4. Normocytic Anemia Chronic, improved from prior -Continue to monitor 5. Tobacco Abuse 60 pack year smoking hx -Bible Teacher for cessation -Nicoderm patch VTE ppx: Lovenox Code Status: Full Disposition/LOS: Obs on Oncology, length of stay likely less than 48 hours FMR H&P: Upper Level - Pertinent history 57AAM p/w several days of chronic pain not controlled by home medications. He has stage IV moderately differentiated colon cancer with metastases to the lungs and liver s/p chemotherapy and radiation. Patient has significant pain 2/ 2 carcinoma and is being managed by a pain specialist in the outpatient setting. He provides minimal history today and all but refuses to answer questions. Most of history is provided by family in the room. Upon review of patients chart, it is noted he is frequently seen at this facility for this complaint. Dr. Flor is his oncologist and he has undergone several cycles of FOLFOX and Avastin in a palliative attempt to reduce pain. He is on scheduled Methadone and PRN Hi [place] for pain currently. - Pertinent findings BP: 126/86 mmHg HR: 76 bpm RR: 16 breaths/m Tmax: 98.3F Pox: 98% on RA Wt: 68kg General: A&Ox3 CV: RRR, no murmurs Pulm: CTA-B GI: midline ex lap scar; non tender; soft; non distended Skin: chronic venous stasis of bilateral lower extremities H.1 K: 2.3 -patient received 80mEq in ER - Plan Date/Time: 08/15/172053 1. Hypokalemia: potassium of 2.3 s/p 80mEq since admission. Will continue to monitor with daily morning labs. He is very cachectic and likely has had minimal PO intake. 2. Rectal Pain 2/2 Adenocarcinoma: FOBT positive but otherwise normal rectal exam. On methadone and norco at home. Given morphine IV in ER with some pain relief. Continue home regimen with morphine for breakthrough 3. Hypercalcemia: 11.6 on admission. IVF of LR @ 110 4. Normocytic Anemia: chronic, improved from prior hospitalizations VTE ppx: Lovenox Code Status: Full I, Ignacio Koehler, have evaluated this patient and agree with findings/plan as outlined by internal controls manager resident. Pertinent changes/additions are listed here. Attending Addendum - Attending Addendum Date/Time: 08/16/17 3735 I personally evaluated the patient and discussed the management with Dr. Hawkins. I agree with the History, Examination, Assessment and Plan documented above with any addition or exceptions noted below. The patient presents with uncontrolled pain 2/2 metastatic rectal adenocarcinoma. He found to be severely hypokalemic and has been admitted for pain control and potassium replacement. He is receiving both IV and oral potassium. Magnesium is checked and is normal. Pt restarted on methadone and norco with morphine for breakthrough pain. Patient notes pain improved overnight with the morphine. Potassium has increased from 2.3 to 2.6.
--- NOTE | 2017-08-15 21:08 | RAD ---
CHEST ONE VIEW: 08/15/17 HISTORY: Emergency exam. Pain. COMPARISON: Chest radiograph 2018. FINDINGS: Port catheter tip superior SVC versus azygos vein. Remainder of the lungs are clear. No pneumothorax or effusion. Known pulmonary nodules are not well defined on this examination. No acute osseous abnormality. IMPRESSION: 1. Port catheter tip in superior SVC versus azygos vein. 2. Known pulmonary nodules are not well defined on today's exam. POS: [facility]
[2017-08-15] MEDS ORDERED: Potassium Chloride 40 MEQ in Sodium Chloride 0.9% 250 ML 250 ML IVPB SCH (21:15)
[2017-08-15] MEDS ORDERED: HYDROcodone/Acetaminophen 10/325 mg Tablet PO PRN (22:46)
[2017-08-15] MEDS: Nicotine 21 MG PATCH TD SCH (23:00)
[2017-08-15] MEDS: Lactated Ringer's 1,000 ML IV SCH (23:20)
[2017-08-15] MEDS: METHadone HCl 10 MG TAB PO SCH (23:20)
[2017-08-16 01:13] VITALS: BMI 19.5
[2017-08-16] MEDS: METHadone HCl 10 MG TAB PO SCH ×3 (05:00→21:03)
[2017-08-16 05:09] LABS: #Eosinphils 0.5 thou/uL (0.0-0.7); #Lymphocytes 1.1 thou/uL (1.20-3.40); #Monocytes 0.7 thou/uL (0.11-0.59); #Neutrophils 5.4 thou/uL (1.40-6.50); %Basophils 0.5 % (0.0-1.0); %Eosinophils 6.8 % (0.0-10.0); %Lymphocytes 13.7 % (21.0-51.0); %Monocytes 9.3 % (0.0-10.0); %Neutrophils 69.7 % (42.0-75.0); Hemoglobin 10.5 g/dL (14.0-18.0); Mean Corpuscular HGB CONC 32.3 g/dL (32.0-36.0); Mean Corpuscular Hemoglobin 28.3 pg (27.0-31.0); Mean Corpuscular Volume 87.6 fl (80.0-94.0); Mean Platelet Volume 6.3 fL (7.4-10.4); Platelet Count 323 thou/uL (130-400); RBC Distribution Width 18.8 % (11.5-14.5); Red Blood Cell (RBC) Count 3.72 mill/uL (4.70-6.10); White Blood Cell (WBC) Count 7.8 thou/uL (4.8-10.8)
[2017-08-16 05:29] LABS: Anion Gap 8 mmol/L (10-20); BUN (Urea Nitrogen) 6 mg/dL (8.4-25.7); Calc. Creatinine Clearance 117 mL/min (70-130); Calcium 10.8 mg/dL (7.8-10.44); Carbon Dioxide 31 mmol/L (22-29); Chloride 100 mmol/L (98-107); Estimated GFR-MDRD Greater than 90; Glucose 95 mg/dL (70-105); Sodium 136 mmol/L (136-145)
[2017-08-16 05:42] LABS: Potassium 2.6 mmol/L (3.5-5.1)
[2017-08-16] MEDS ORDERED: Potassium Chloride 20 MEQ TAB PO SCH ×3 (06:00→21:45)
[2017-08-16] MEDS: Potassium Chloride 20 MEQ in Premix Bag 1 BAG IVPB SCH ×2 (06:09→09:39)
--- NOTE | 2017-08-16 07:09 | PDOC.FM ---
- Subjective Subjective: 57 yo M w/hx of Stage IV rectal adenocarcinoma here with hypokalemia and chronic rectal pain. Pt states that pain is controlled this morning. He denies any new symptoms. He denies chest pain or SOB. No acute events over night. - Objective Vital Signs & Weight: Vital Signs (12 hours) Temp Pulse Resp BP Pulse Ox 08/16/17 04:00 98.1 F 85 16 132/92 H 99 08/16/17 00:00 99 08/15/17 22:46 97.7 F 80 12 156/92 H 99 08/15/17 22:32 97.7 F 80 12 Weight Weight 67.273 kg I&O: 08/15/17 08/16/17 08/17/17 06:59 06:59 06:59 Intake Total 1150 Balance 1150 Result Diagrams: 08/16/17 04:57 08/16/17 04:57 <Graham Vides - Last Filed: 08/16/17 07:07> - Objective Vital Signs & Weight: Vital Signs (12 hours) Temp Pulse Resp BP Pulse Ox 08/16/17 12:00 97.6 F 84 18 125/90 99 08/16/17 08:00 98.2 F 83 18 130/97 H 100 08/16/17 04:00 98.1 F 85 16 132/92 H 99 Weight Weight 67.273 kg I&O: 08/15/17 08/16/17 08/17/17 06:59 06:59 06:59 Intake Total 1150 Balance 1150 Result Diagrams: 08/16/17 04:57 08/16/17 14:21 <Rebekah Disla - Last Filed: 08/16/17 15:25> Phys Exam - Physical Examination Constitutional: NAD HEENT: moist MMs, sclera anicteric Neck: no JVD, full ROM Respiratory: clear to auscultation bilateral Cardiovascular: RRR, no significant murmur Gastrointestinal: soft, non-tender, positive bowel sounds Musculoskeletal: no edema, pulses present Neurological: non-focal, normal sensation Lymphatic: no nodes Psychiatric: normal affect, A&O x 3 Skin: no rash, normal turgor <Graham Vides - Last Filed: 08/16/17 07:07> Dx/Plan (1) Normocytic anemia Code(s): D64.9 - ANEMIA, UNSPECIFIED Status: Chronic (2) Tobacco abuse Code(s): Z72.0 - TOBACCO USE Status: Chronic (3) Hypokalemia Code(s): E87.6 - HYPOKALEMIA Status: Acute (4) Hypercalcemia Code(s): E83.52 - HYPERCALCEMIA Status: Chronic (5) Rectal adenocarcinoma metastatic to liver Code(s): C20 - MALIGNANT NEOPLASM OF RECTUM; C78.7 - SECONDARY MALIG NEOPLASM OF LIVER AND INTRAHEPATIC BILE DUCT Status: Chronic - Plan Plan: Hypokalemia - Initial K+ was 2.3, after 80 mEq recheck was 2.6. Currently getting 40 mEq PO and 40 IV. Recheck at 1200. - 2/2 poor PO intake with diarrhea - Mg 2.2 Rectal Pain 2/2 Rectal Adenocarcinoma - Chronic and controlled on home meds -If pt has breakthrough pain, then consider morphine prn Hypercalcemia - 2/2 malignancy. Ca 11.6 on admission, recheck 10.8 after IVF - CMP in am. - continue LR @ 110 Normocytic Anemia Chronic and stable Tobacco Abuse 60 pack year smoking hx -Loader [employer] for cessation -Nicoderm patch Dispo: Stable, likely length of stay 24-48 hours pending response to K replacement <Graham Vides - Last Filed: 08/16/17 07:07> (1) Hypokalemia Code(s): E87.6 - HYPOKALEMIA Status: Acute (2) Rectal adenocarcinoma metastatic to liver Code(s): C20 - MALIGNANT NEOPLASM OF RECTUM; C78.7 - SECONDARY MALIG NEOPLASM OF LIVER AND INTRAHEPATIC BILE DUCT Status: Chronic (3) Hypercalcemia Code(s): E83.52 - HYPERCALCEMIA Status: Chronic (4) Normocytic anemia Code(s): D64.9 - ANEMIA, UNSPECIFIED Status: Chronic (5) Tobacco abuse Code(s): Z72.0 - TOBACCO USE Status: Chronic <Rebekah Disla - Last Filed: 08/16/17 15:25> Attending Addendum - Attending Addendum Date/Time: 08/16/17 1524 I personally evaluated the patient and discussed the management with Dr. Vides. I agree with the History, Examination, Assessment and Plan documented above with any addition or exceptions noted below. The patient's pain is improved with morphine. Continue current meds for pain control. Potassium will continue to be replaced by IV and PO. Recheck potassium level later this morning. <Rebekah Disla - Last Filed: 08/16/17 15:25>
[2017-08-16] MEDS ORDERED: Prevnar 13-Val Conj/PF 0.5 ML SYRINGE IM ONE (09:00)
[2017-08-16] MEDS ORDERED: HYDROcodone/Acetaminophen 10/325 mg Tablet PO PRN (09:17)
[2017-08-16] MEDS ORDERED: Loperamide HCl 2 MG CAP PO PRN (09:17)
[2017-08-16] MEDS: Enoxaparin Sodium 40 MG/0.4 ML SYRINGE SC SCH (09:39)
[2017-08-16] MEDS: Lactated Ringer's 1,000 ML IV SCH (09:45)
[2017-08-16 14:58] LABS: Anion Gap 9 mmol/L (10-20); BUN (Urea Nitrogen) 6 mg/dL (8.4-25.7); Calc. Creatinine Clearance 150 mL/min (70-130); Calcium 7.6 mg/dL (7.8-10.44); Carbon Dioxide 18 mmol/L (22-29); Chloride 115 mmol/L (98-107); Estimated GFR-MDRD Greater than 90; Glucose 87 mg/dL (70-105); Potassium 3.3 mmol/L (3.5-5.1); Sodium 139 mmol/L (136-145)
[2017-08-16 19:35] LABS: Anion Gap 12 mmol/L (10-20); BUN (Urea Nitrogen) 8 mg/dL (8.4-25.7); Calc. Creatinine Clearance 89 mL/min (70-130); Calcium 10.9 mg/dL (7.8-10.44); Carbon Dioxide 26 mmol/L (22-29); Chloride 102 mmol/L (98-107); Estimated GFR-MDRD Greater than 90; Glucose 106 mg/dL (70-105); Potassium 3.3 mmol/L (3.5-5.1); Sodium 137 mmol/L (136-145)
[2017-08-16] MEDS: Mirtazapine 30 MG TAB PO SCH (21:05)
[2017-08-16] MEDS: Nicotine 21 MG PATCH TD SCH (22:28)
[2017-08-17 05:16] LABS: #Eosinphils 0.9 thou/uL (0.0-0.7); #Lymphocytes 1.1 thou/uL (1.20-3.40); #Monocytes 0.8 thou/uL (0.11-0.59); #Neutrophils 5.5 thou/uL (1.40-6.50); %Basophils 0.4 % (0.0-1.0); %Eosinophils 10.6 % (0.0-10.0); %Lymphocytes 13.6 % (21.0-51.0); %Monocytes 9.6 % (0.0-10.0); %Neutrophils 65.8 % (42.0-75.0); Hemoglobin 9.9 g/dL (14.0-18.0); Mean Corpuscular HGB CONC 31.7 g/dL (32.0-36.0); Mean Corpuscular Hemoglobin 28.3 pg (27.0-31.0); Mean Corpuscular Volume 89.3 fl (80.0-94.0); Mean Platelet Volume 6.5 fL (7.4-10.4); Platelet Count 351 thou/uL (130-400); RBC Distribution Width 19.4 % (11.5-14.5); White Blood Cell (WBC) Count 8.3 thou/uL (4.8-10.8)
[2017-08-17] MEDS: METHadone HCl 10 MG TAB PO SCH ×2 (05:35→14:05)
[2017-08-17 05:37] LABS: Anion Gap 10 mmol/L (10-20); BUN (Urea Nitrogen) 8 mg/dL (8.4-25.7); Calc. Creatinine Clearance 103 mL/min (70-130); Carbon Dioxide 29 mmol/L (22-29); Chloride 105 mmol/L (98-107); Estimated GFR-MDRD Greater than 90; Glucose 98 mg/dL (70-105); Potassium 3.3 mmol/L (3.5-5.1); Sodium 141 mmol/L (136-145)
--- NOTE | 2017-08-17 06:38 | PDOC.FM ---
- Subjective Subjective: Pt complains of difficulty with his chemo port. The nurse states that it is not flushing correctly. He also is a&ox3 but seems to respond to questions abnormally. The nurse noticed this acute change as well. - Objective Vital Signs & Weight: Vital Signs (12 hours) Temp Pulse Resp BP Pulse Ox 08/17/17 04:51 97.9 F 71 16 128/86 100 08/17/17 00:00 98.4 F 77 12 158/105 H 97 08/16/17 20:00 97.4 F L 91 12 150/95 H 99 Weight Weight 67.273 kg I&O: 08/15/17 08/16/17 08/17/17 06:59 06:59 06:59 Intake Total 1150 1300 Balance 1150 1300 Result Diagrams: 08/17/17 04:47 08/17/17 04:47 Phys Exam - Physical Examination Constitutional: NAD HEENT: PERRLA, moist MMs Respiratory: no wheezing, no rales, clear to auscultation bilateral Cardiovascular: RRR, no significant murmur Gastrointestinal: soft, non-tender Musculoskeletal: no edema, pulses present Neurological: non-focal, normal sensation Psychiatric: normal affect, A&O x 3 Skin: no rash Dx/Plan (1) Metastatic adenocarcinoma to lung Code(s): C78.00 - SECONDARY MALIGNANT NEOPLASM OF UNSPECIFIED LUNG Status: Acute (2) Hypokalemia Code(s): E87.6 - HYPOKALEMIA Status: Acute (3) Intractable abdominal pain Code(s): R10.9 - UNSPECIFIED ABDOMINAL PAIN Status: Acute (4) Rectal adenocarcinoma metastatic to liver Code(s): C20 - MALIGNANT NEOPLASM OF RECTUM; C78.7 - SECONDARY MALIG NEOPLASM OF LIVER AND INTRAHEPATIC BILE DUCT Status: Chronic - Plan Plan: 57 yo man with pmhx of stage 4 adenocarcinoma with mets to liver and lungs presents with rectal pain, admitted for uncontrolled pain and hypokalemia. Hypokalemia - Will start on 40mg PO KCL daily - 2/2 poor PO intake and diarrhea Rectal Pain 2/2 Rectal Adenocarcinoma -Controlled on home regimen now Hypercalcemia - 2/2 malignancy. Ca 11.6 on admission, recheck 10.8 after IVF - Recheck in am - Continue LR @ 110 Chemo port - -Not flushing -Ordered port study through XR Normocytic Anemia Chronic and stable Tobacco Abuse 60 pack year smoking hx -Gasket Inspector for cessation -Nicoderm patch Dispo: Stable, likely length of stay 24-48 hours; probable dc after XR evaluates pt's port.
[2017-08-17] MEDS: Enoxaparin Sodium 40 MG/0.4 ML SYRINGE SC SCH (09:01)
[2017-08-17] MEDS: Potassium Chloride 20 MEQ TAB PO SCH (09:03)
[2017-08-17] MEDS ORDERED: Iopamidol 300 61% 30 ML VIAL ONE (11:04)
[2017-08-17] MEDS: Activase 2 MG VIAL CATH SCH ×2 (11:24→14:05)
[2017-08-17] MEDS: Sterile Water 10 ML VIAL IVP SCH ×2 (11:24→14:06)
--- NOTE | 2017-08-17 14:35 | ADD-PRG ---
DATE OF SERVICE: 08/17/2017 This is an addendum to the note of Dr. Lakshmi Calix. Mr. Canada was admitted for rectal pain. This unfortunate gentleman has rectal adenocarcinoma, metastatic to lungs and liver. This morning hi s pain is better controlled with adjustments in his methadone and [place]. We will check his IV port f or chemotherapy and later discharge him this afternoon if this is functioning. He is to see his onco logist next week.
--- NOTE | 2017-08-17 16:21 | RAD ---
FLUOROSCOPIC GUIDED MEDIPORT CHECK: 08/17/2017 HISTORY: Chemotherapy port not flushing. TECHNIQUE: The Mediport catheter was accessed prior to this examination. A sterile syringe containing hepariniz ed saline was connected to the IV tubing. The Mediport catheter was unable to be aspirated; however, the catheter was able to be flushed. As a result, a sterile, contrast filled syringe was then conne cted to the IV tubing, and contrast was injected. Contrast extends into the SVC. However, the tip o f the Mediport catheter abuts the right lateral wall of the SVC, which likely prevents aspiration. The Mediport catheter was flushed with heparinized saline. The patient tolerated the procedure well and without immediate complications. IMPRESSION: Left subclavian Mediport catheter noted in place with the tip abutting the right lateral sidewall of the SVC. The Mediport catheter is unable to be aspirated, but injection of contrast does demonstrate flow of contrast into the superior vena cava. POS: [facility]
[2017-08-17] MEDS ORDERED: METHadone HCl 10 MG TAB PO SCH ×2 (18:00→22:00)
--- NOTE | 2017-08-17 20:06 | PDOC.EVN ---
Event Note - Event Note Event Note: Pt became increasing confused throughout the day. Discussed pain management regimen with oncology clinic who stated that he now gets his medications from Dr. Burns (supervisor painting). Called Dr. Burns who confirmed that he was getting 10mg PO q6h adelia. of methadone and 1 tab norco (10/325) q6hr prn breakthrough pain. Pt has been receiving a higher dose here of 30mg q8h scheduled methadone and norco 1 tab 10/325 for mild pain and norco 2 tabs 10/ 325 for moderate to severe pain. Discussed weaning the patient based on Dr. Burns's recommendations to methadone 20mg q8hr adelia and one tab of norco 10/ 325mg q6h prn for breakthrough pain. Dr. Burns recommended close follow-up later this week in his clinic after we discharge him. Will monitor patient overnight and if able, consider discharge tomorrow.
[2017-08-17] MEDS: Mirtazapine 30 MG TAB PO SCH (20:54)
[2017-08-17] MEDS: Nicotine 21 MG PATCH TD SCH (23:15)
[2017-08-17] MEDS: HYDROcodone/Acetaminophen 10/325 mg Tablet PO PRN (23:19)
[2017-08-17] MEDS: Ondansetron ODT 4 MG TAB PO PRN (23:19)
--- NOTE | 2017-08-18 06:32 | PDOC.FM ---
- Subjective Subjective: No acute events overnight. Pt a&ox3. Pt not confused this am. Endorses pain is controlled at a 5/10 this am. - Objective MAR Reviewed: Yes Vital Signs & Weight: Vital Signs (12 hours) Temp Pulse Resp BP 08/17/17 23:19 117 H 20 137/84 08/17/17 19:52 97.9 F 83 16 Weight Admit Weight 67.132 kg Weight 67.132 kg I&O: 08/16/17 08/17/17 08/18/17 06:59 06:59 06:59 Intake Total 1150 2500 1000 Balance 1150 2500 1000 Result Diagrams: 08/18/17 06:19 08/18/17 06:19 Phys Exam - Physical Examination Constitutional: NAD HEENT: PERRLA, moist MMs Respiratory: no wheezing, no rales, clear to auscultation bilateral Cardiovascular: RRR, no significant murmur, no rub Gastrointestinal: soft, non-tender, no distention Musculoskeletal: no edema, pulses present Psychiatric: normal affect, A&O x 3 Skin: no rash, normal turgor Dx/Plan (1) Metastatic adenocarcinoma to lung Code(s): C78.00 - SECONDARY MALIGNANT NEOPLASM OF UNSPECIFIED LUNG Status: Acute (2) Hypokalemia Code(s): E87.6 - HYPOKALEMIA Status: Acute (3) Intractable abdominal pain Code(s): R10.9 - UNSPECIFIED ABDOMINAL PAIN Status: Acute (4) Rectal adenocarcinoma metastatic to liver Code(s): C20 - MALIGNANT NEOPLASM OF RECTUM; C78.7 - SECONDARY MALIG NEOPLASM OF LIVER AND INTRAHEPATIC BILE DUCT Status: Chronic - Plan Plan: 57 yo man with pmhx of stage 4 adenocarcinoma with mets to liver and lungs presents with rectal pain, admitted for uncontrolled pain and hypokalemia. Hypokalemia - Will start on 40mg PO KCL daily - 2/2 poor PO intake and diarrhea Rectal Pain 2/2 Rectal Adenocarcinoma -Pt was started on Methadone 30mg q8h adelia and norco for breakthrough -Discussed case with Dr. Burns who recommended Methadone 20mg q8h and 1 tab norco 10/325 mg q6h prn breakthrough pain with close follow-up -Pt will be discharged on above regimen Hypercalcemia - 10.9 - Continue LR @ 110 Chemo port - -Ordered port study through XR-able to flush but unable to withdraw from the port Normocytic Anemia Chronic and stable Tobacco Abuse 60 pack year smoking hx -Admissions Nurse for cessation -Nicoderm patch Dispo: Stable, likely length of stay 24-48 hours; probable dc after XR evaluates pt's port.
[2017-08-18 06:36] LABS: #Eosinphils 0.8 thou/uL (0.0-0.7); #Lymphocytes 1.1 thou/uL (1.20-3.40); #Monocytes 0.8 thou/uL (0.11-0.59); #Neutrophils 5.6 thou/uL (1.40-6.50); %Basophils 0.5 % (0.0-1.0); %Eosinophils 9.3 % (0.0-10.0); %Lymphocytes 13.3 % (21.0-51.0); %Monocytes 9.9 % (0.0-10.0); Hemoglobin 9.7 g/dL (14.0-18.0); Mean Corpuscular HGB CONC 32.1 g/dL (32.0-36.0); Mean Corpuscular Hemoglobin 28.8 pg (27.0-31.0); Mean Corpuscular Volume 89.7 fl (80.0-94.0); Mean Platelet Volume 6.7 fL (7.4-10.4); Platelet Count 333 thou/uL (130-400); RBC Distribution Width 20.2 % (11.5-14.5); Red Blood Cell (RBC) Count 3.36 mill/uL (4.70-6.10); White Blood Cell (WBC) Count 8.4 thou/uL (4.8-10.8)
[2017-08-18 06:52] LABS: Anion Gap 10 mmol/L (10-20); BUN (Urea Nitrogen) 8 mg/dL (8.4-25.7); Calc. Creatinine Clearance 110 mL/min (70-130); Calcium 10.9 mg/dL (7.8-10.44); Carbon Dioxide 27 mmol/L (22-29); Chloride 103 mmol/L (98-107); Estimated GFR-MDRD Greater than 90; Glucose 89 mg/dL (70-105); Potassium 3.4 mmol/L (3.5-5.1); Sodium 137 mmol/L (136-145)
[2017-08-18] MEDS ORDERED: Potassium Chloride 20 MEQ TAB PO SCH (07:45)
[2017-08-18] MEDS: Potassium Chloride 20 MEQ TAB PO SCH (08:35)
[2017-08-18] MEDS: HYDROcodone/Acetaminophen 10/325 mg Tablet PO PRN (08:36)
[2017-08-18] MEDS: Enoxaparin Sodium 40 MG/0.4 ML SYRINGE SC SCH (08:43)
[2017-08-18 08:44] VITALS: BP 149/95; TEMP 98.5
[2017-08-18] MEDS ORDERED: METHadone HCl 10 MG TAB PO SCH ×2 (09:00→12:00)
[2017-08-18] MEDS ORDERED: Multivit, Chewable SF 1 TAB PO SCH (09:00)
[2017-08-18] MEDS: Ondansetron ODT 4 MG TAB PO PRN (11:35)
--- NOTE | 2017-08-18 12:56 | ADD-PRG ---
ADDENDUM This is an addendum to the note of Dr. Lakshmi Calix. Mr. Canada had been receiving more than the recommended dose of methadone for pain control yesterday. He became slightly confused and agitat ed and adjustments were made in his medications. This morning he is fine. He is completely awake, a lert, and enjoying walk down the hallway. He will be discharged for close followup with his pain man agement doctor early next week. He also has an appointment with Oncology as well.
== END 2017-08-18 14:39 | disposition home or self-care (01) ==
LOC: ERS 19:06 → ONC 20:40
PROVIDERS: ADMIT Family Medicine; ATTEND Family Medicine
DX: C20 Malignant neoplasm of rectum (principal); C78.00 Secondary malignant neoplasm of unspecified lung; E87.6 Hypokalemia; C78.7 Secondary malignant neoplasm of liver and intrahepatic bile duct; E83.51 Hypocalcemia; D64.9 Anemia, unspecified; F17.210 Nicotine dependence, cigarettes, uncomplicated
CPT/HCPCS: 36598; 71045; 80048 ×4; 80053; 82274; 83605; 83735; 85025 ×4; 93005; 96361; 96365; 96366 ×2; 96375 ×2; 96376 ×2; 99285; G0378 ×2; J2997; 36415; 90471; 90670; A4216; G0009; J1642; J1650; J2270; J3480; J7050; Q0162

== ENCOUNTER 2017-08-24 11:06 | Day surgery (SDC) | payer MEDICARE ==
[2017-08-24] MEDS ORDERED: Sodium Chloride 0.9% 50 ML ONE (11:23)
[2017-08-24] MEDS ORDERED: Dexamethasone 20 MG in Sodium Chloride 0.9% 50 ML IVPB SCH (11:45)
[2017-08-24] MEDS ORDERED: Ondansetron HCl/PF 10 MG in Sodium Chloride 0.9% 50 ML IVPB SCH (11:45)
[2017-08-24] MEDS ORDERED: SODIUM CHLORIDE 0.9% IVPB SCH ×2 (12:00→12:15)
[2017-08-24] MEDS ORDERED: Oxaliplatin 200 MG in Dextrose 5% in Water 500 ML IVPB SCH (12:00)
[2017-08-24] MEDS ORDERED: BEVACIZUMAB IVPB SCH (12:00)
[2017-08-24] MEDS ORDERED: FLUOROURACIL IVPB SCH (12:00)
[2017-08-24] MEDS ORDERED: DEXTROSE 5% IVPB SCH (12:00)
[2017-08-24] MEDS ORDERED: WATER IVPB SCH (12:00)
[2017-08-24] MEDS ORDERED: Sterile Water 10 ML VIAL IVP SCH (12:09)
[2017-08-24] MEDS: Activase 2 MG VIAL CATH SCH ×2 (12:15→14:18)
[2017-08-24] MEDS ORDERED: DEXAMETHASONE IVPB SCH (12:15)
[2017-08-24] MEDS ORDERED: ONDANSETRON IVPB SCH (12:15)
[2017-08-24] MEDS ORDERED: Admixture Fee 1 EACH in Dextrose 5% in Water 10 ML IV SCH (12:15)
[2017-08-24 12:50] VITALS: BP 131/101; TEMP 98.6
== END 2017-08-24 18:58 | disposition home or self-care (01) ==
LOC: ONC/OP 11:06
PROVIDERS: ATTEND Internal Medicine Medical Oncology
DX: Z51.11 Encounter for antineoplastic chemotherapy (principal); C20 Malignant neoplasm of rectum; F17.200 Nicotine dependence, unspecified, uncomplicated; Z79.899 Other long term (current) drug therapy
CPT/HCPCS: 96367; 96413; 96415; 96416; 96417; 99212; A4216; G0463; J1100; J2405; J2997; J7050; J7070; J9035; J9190; J9263

== ENCOUNTER 2017-08-26 10:51 | Day surgery (SDC) | payer MEDICARE ==
[2017-08-26] MEDS ORDERED: Zoledronic Acid 4 MG in Sodium Chloride 0.9% 100 ML IVPB SCH (11:15)
== END 2017-08-26 12:41 | disposition home or self-care (01) ==
LOC: ONC/OP 10:51
PROVIDERS: ATTEND Internal Medicine Medical Oncology
DX: Z51.11 Encounter for antineoplastic chemotherapy (principal); C20 Malignant neoplasm of rectum; F17.200 Nicotine dependence, unspecified, uncomplicated; Z79.899 Other long term (current) drug therapy
CPT/HCPCS: 96365; J3489; J7050

== ENCOUNTER 2017-09-16 13:52 | Inpatient (IN) | payer MEDICARE ==
[~2017-09-16 13:52] MED LIST changes: +Bupivacaine HCl 0.5%/Epinephrine 1:200,000/PF 30 ml Vial ONE; +Glycopyrrolate 0.2 MG/ML 5 ML SYRINGE ONE; -Iopamidol 370 76% 100 ML VIAL ONE; +Lidocaine 1% PF 5 ML VIAL ONE; +Ondansetron HCl/PF 4 MG/2 ML Vial ONE; +PHENYLEPHRINE-NS 100 MCG/ML 10 ML SYRINGE ONE; +PROPOFOL 200 MG/20 ML VIAL ONE
[2017-09-16 15:05] LABS: #Eosinphils 0.4 thou/uL (0.0-0.7); #Lymphocytes 0.9 thou/uL (1.20-3.40); #Monocytes 0.4 thou/uL (0.11-0.59); #Neutrophils 5.4 thou/uL (1.40-6.50); %Basophils 0.3 % (0.0-1.0); %Eosinophils 5.8 % (0.0-10.0); %Lymphocytes 12.4 % (21.0-51.0); %Monocytes 5.8 % (0.0-10.0); %Neutrophils 75.7 % (42.0-75.0); Hemoglobin 10.5 g/dL (14.0-18.0); Mean Corpuscular HGB CONC 32.8 g/dL (32.0-36.0); Mean Corpuscular Hemoglobin 29.3 pg (27.0-31.0); Mean Corpuscular Volume 89.5 fL (78.0-98.0); Mean Platelet Volume 6.1 fL (7.4-10.4); Platelet Count 386 thou/uL (130-400); RBC Distribution Width 19.4 % (11.5-14.5); Red Blood Cell (RBC) Count 3.57 mill/uL (4.70-6.10); White Blood Cell (WBC) Count 7.2 thou/uL (4.8-10.8)
[2017-09-16] MEDS ORDERED: Ketorolac Tromethamine 30 MG/ML VIAL ONE (15:14)
[2017-09-16] MEDS ORDERED: Midazolam HCl 2 mg/2 ml Vial ONE (15:14)
[2017-09-16] MEDS ORDERED: Fentanyl 100 MCG/2 ML VIAL ONE ×2 (15:14→19:01)
[2017-09-16 15:25] LABS: Anion Gap 10 mmol/L (10-20); BUN (Urea Nitrogen) 4 mg/dL (8.4-25.7); Calc. Creatinine Clearance 126 mL/min (70-130); Calcium 10.5 mg/dL (7.8-10.44); Carbon Dioxide 35 mmol/L (22-29); Chloride 98 mmol/L (98-107); Estimated GFR-MDRD Greater than 90; Glucose 86 mg/dL (70-105); Sodium 140 mmol/L (136-145)
[2017-09-16 15:30] LABS: Potassium 2.5 mmol/L (3.5-5.1)
[2017-09-16] MEDS ORDERED: Meropenem 2 GM in Sodium Chloride 0.9% 100 ML IVPB SCH (15:45)
[2017-09-16] MEDS ORDERED: Bupivacaine HCl 0.5%/Epinephrine 1:200,000/PF 30 ml Vial ONE (18:52)
[2017-09-16] MEDS ORDERED: Ondansetron HCl/PF 4 MG/2 ML Vial IVP PRN ×2 (22:19→22:31)
[2017-09-16] MEDS ORDERED: hydrALAZINE 20 MG/ML VIAL SLOW IVP PRN (22:19)
[2017-09-16] MEDS ORDERED: Potassium Chloride 40 MEQ in Sodium Chloride 0.9% 250 ML 250 ML IVPB SCH (22:30)
[2017-09-16] MEDS ORDERED: Promethazine HCl 25 MG/ML VIAL SLOW IVP PRN (22:31)
[2017-09-16] MEDS ORDERED: Promethazine HCl 25 MG/ML VIAL IM PRN (22:31)
[2017-09-17] MEDS: Acetaminophen 1,000 MG in Premix Bag 1 BAG IVPB SCH ×5 (00:40→23:18)
[2017-09-17] MEDS: Ketorolac Tromethamine 30 MG/ML VIAL IVP SCH ×5 (00:40→23:18)
[2017-09-17] MEDS: Potassium Chloride 20 MEQ in Lactated Ringer's 1,000 ML IV SCH ×5 (04:44→21:28)
[2017-09-17 04:58] LABS: #Eosinphils 0.1 thou/uL (0.0-0.7); #Lymphocytes 0.5 thou/uL (1.20-3.40); #Monocytes 0.5 thou/uL (0.11-0.59); #Neutrophils 9.8 thou/uL (1.40-6.50); %Basophils 0.3 % (0.0-1.0); %Eosinophils 0.5 % (0.0-10.0); %Lymphocytes 4.6 % (21.0-51.0); %Monocytes 4.7 % (0.0-10.0); %Neutrophils 89.8 % (42.0-75.0); Hemoglobin 9.6 g/dL (14.0-18.0); Mean Corpuscular HGB CONC 30.9 g/dL (32.0-36.0); Mean Corpuscular Hemoglobin 28.3 pg (27.0-31.0); Mean Corpuscular Volume 91.5 fL (78.0-98.0); Mean Platelet Volume 6.6 fL (7.4-10.4); Platelet Count 362 thou/uL (130-400); RBC Distribution Width 19.5 % (11.5-14.5); Red Blood Cell (RBC) Count 3.41 mill/uL (4.70-6.10); White Blood Cell (WBC) Count 10.9 thou/uL (4.8-10.8)
[2017-09-17 05:18] LABS: ALT (SGPT) 8 U/L (8-55); AST (SGOT) 16 U/L (5-34); Albumin 3.3 g/dL (3.5-5.0); Alkaline Phosphatase 137 U/L (40-150); Anion Gap 11 mmol/L (10-20); BUN (Urea Nitrogen) 5 mg/dL (8.4-25.7); Bilirubin, Total 0.5 mg/dL (0.2-1.2); Calc. Creatinine Clearance 129 mL/min (70-130); Calcium 9.7 mg/dL (7.8-10.44); Carbon Dioxide 31 mmol/L (22-29); Chloride 105 mmol/L (98-107); Estimated GFR-MDRD Greater than 90; Globulin 2.7 g/dL (2.4-3.5); Glucose 83 mg/dL (70-105); Potassium 3.1 mmol/L (3.5-5.1); Sodium 144 mmol/L (136-145)
--- NOTE | 2017-09-17 06:03 | OP ---
DATE OF PROCEDURE: 09/16/2017 PREOPERATIVE DIAGNOSES: Metastatic rectal cancer with chronic pelvic pain, extensive pelvic disease. History of subtotal colectomy. POSTOPERATIVE DIAGNOSES: Metastatic rectal cancer with chronic pelvic pain, extensive pelvic disease . History of subtotal colectomy. PROCEDURE: Laparoscopy converted to laparotomy with extensive adhesiolysis and sigmoid loop/side col ostomy. SURGEON: Marek Mancera M.D. ANESTHESIA: General, tap block. PROCEDURE IN DETAIL: The patient was taken to the operating room where under general anesthesia, Fol ey catheter placed at the beginning removed at the end. Bilateral subcostal incision made. Pneumope ritoneum 250 mmHg obtained with the Veress needle placed. The laparoscope inserted into the 5 port. There were adhesions and then centrally and the lateral lower portion of the right abdomen, adhesion free area was seen and 5 port placed. Adhesiolysis carried out. There were 2 extensive midline inc ision was made infraumbilical and skin and subcutaneous tissue, midline fascia from the pubis to the umbilicus. Adhesiolysis completed about an hour and a half spent taking down the adhesions of small bowel. There was anastomosis of small bowel to her lower sigmoid colon. This was dissected free, mo bilized and reached up into the left lower quadrant. Small bowel was run to and fro three times and no injuries were noted. No enterotomy sustained. At this point, a defect was made in the left lower quadrant excised in a circular defect of skin, subcutaneous tissue, and a cruciate incision made in the anterior rectus fascia. Rectus muscle split laterally and medially and posterior fascia opened. The colon brought out through this wound and the midline fascia closed with continuous suture of #1 PDS, skin and subcutaneous tissues irrigated, good hemostasis noted. Skin approximated with donna. Sterile dressing applied. Donna applied to the laparoscopic port sites. ____ opening was made a nd 4 turn bolt sutures of 3-0 Vicryl used to ____ colostomy interrupted sutures of 3-0 Vicryl used to finish maturation and ostomy appliance secured. The patient tolerated the procedure well.
[2017-09-17] MEDS: Enoxaparin Sodium 40 MG/0.4 ML SYRINGE SC SCH (08:35)
[2017-09-17] MEDS: Famotidine/PF 20 mg/2ml Vial SLOW IVP SCH ×2 (08:36→20:53)
--- NOTE | 2017-09-17 14:38 | PQF ---
CLINICAL DOCUMENTATION IMPROVEMENT CLARIFICATION FORM: ICD-10 Updated PLEASE DO AN ADDENDUM TO THE PROGRESS NOTE WITH ANY DOCUMENTATION UPDATES OR ADDITIONS AND CARRY THROUGH TO DC SUMMARY. THANK YOU. Date: 09/17/17 ATTN: DR. MORENO Please exercise your independent, professional judgment in responding to the clarification form. Clinical indicators are provided on the bottom of this form for your review Please check appropriate box(s): [ ] Protein Calorie Malnutrition: [ ] Mild [ yes] Moderate [ ] Severe [ ] Other Malnutrition (please specify) __ [ ] Underweight without malnutrition [ ] Cachexia [ ] Other diagnosis [ ] Unable to determine In addition, please specify: Present on Admission (POA): [ yes ] Yes [ ] No [ ] Unable to determine CLINICAL INDICATORS - SIGNS / SYMPTOMS / LABS DIETARY NOTE 09/17: "24% WEIGHT LOSS OVER AN UNKNOWN TIME WITH SEVERE TEMPORAL MUSCLE WASTING OBSERVED." BMI 20 ALBUMIN 3.3 RISKS: METASTATIC RECTAL CANCER S/P LAPAROTOMY WITH ADHESIOLYSIS AND COLOSTOMY TREATMENT: DIETARY CONSULT POSSIBLE CONSIDERATION OF TPN INITIATION PER DIETARY ASSESSMENT IV HYDRATION Moderate Malnutrition (in acute illness) Energy Intake: <75% of estimated energy requirement for > 7 days Weight Loss: 1-2%/1 week; 5%/ 1 month; 7.5%/3 months Other: mild body fat loss; mild muscle mass loss; mild fluid accumulation; Severe Malnutrition (in acute illness) Energy Intake: < 50% of estimated energy requirement for > 5 days Weight Loss: >1-2%/1 week; >5%/1 month; >7.5%/3 months Other: moderate body fat loss; moderate muscle mass loss; moderate- severe fluid accumulation; measurably reduced custom miller strength Moderate Malnutrition (in chronic illness) Energy Intake: <75% of estimated energy requirement for >1 month Weight Loss: 5%/1 month; 7.5%/3 months; 10%/6 months; 20%/1 year Other: mild body fat loss; mild muscle mass loss; mild fluid accumulation Severe Malnutrition (in chronic illness) Energy Intake: <75% of estimated energy requirement for >1 month Weight Loss: >5%/1 month; >7.5%/3 months; >10%/6 months; >20%/1 year Other: severe body fat loss; severe muscle mass loss; severe fluid accumulation ; measurably reduced custom miller strength (This form is maintained as a part of the permanent medical record) 2014 [employer]. All Rights Reserved [email or web address] [email or web address] Office: [phone] [facility]
--- NOTE | 2017-09-17 17:01 | PRG ---
DATE OF SERVICE: 09/17/2017 SUBJECTIVE: Dejan Canada is doing well today. He is not having nausea and vomiting. NG tube outpu t has been very scant. Urine output has been excellent, 2200 mL. He does not have any nausea or vom iting. He denies any abdominal pain. Colostomy is healthy. PHYSICAL EXAMINATION: LUNGS: Clear to auscultation. CARDIAC: Regular rate and rhythm without murmur or gallop. ABDOMEN: Soft, nondistended, nontender. Diminished bowel sounds. VITAL SIGNS: Temperature 98.9 degrees, 90, 16, 162/91. LABORATORY DATA: This morning, white count is 10 and hemoglobin 9.6. Sodium 144, potassium 3.1 and BUN 5. ASSESSMENT AND PLAN: The patient is doing well postoperatively. We will discontinue his NG tube. C ontinue sips and chips today. We will recheck his electrolytes tomorrow. Increase activity.
[2017-09-17] MEDS ORDERED: Acetaminophen 1,000 MG in Premix Bag 1 BAG IVPB SCH (18:00)
[2017-09-18 04:53] LABS: ALT (SGPT) 8 U/L (8-55); AST (SGOT) 15 U/L (5-34); Albumin 3.1 g/dL (3.5-5.0); Alkaline Phosphatase 129 U/L (40-150); Anion Gap 9 mmol/L (10-20); BUN (Urea Nitrogen) 5 mg/dL (8.4-25.7); Bilirubin, Total 0.5 mg/dL (0.2-1.2); Calc. Creatinine Clearance 143 mL/min (70-130); Calcium 9.9 mg/dL (7.8-10.44); Carbon Dioxide 31 mmol/L (22-29); Chloride 102 mmol/L (98-107); Estimated GFR-MDRD Greater than 90; Globulin 2.9 g/dL (2.4-3.5); Glucose 93 mg/dL (70-105); Sodium 139 mmol/L (136-145)
[2017-09-18 04:59] LABS: Potassium 2.8 mmol/L (3.5-5.1)
[2017-09-18] MEDS: Ketorolac Tromethamine 30 MG/ML VIAL IVP SCH ×2 (05:34→11:40)
[2017-09-18] MEDS: Acetaminophen 1,000 MG in Premix Bag 1 BAG IVPB SCH ×2 (05:35→11:21)
[2017-09-18] MEDS: Potassium Chloride 20 MEQ in Lactated Ringer's 1,000 ML IV SCH ×2 (05:35→11:21)
[2017-09-18] MEDS ORDERED: Potassium Chloride 40 MEQ in Sodium Chloride 0.9% 250 ML 250 ML IVPB SCH (06:00)
[2017-09-18] MEDS ORDERED: Potassium Chloride 20 MEQ in Lactated Ringer's 1,000 ML IV SCH (07:49)
[2017-09-18] MEDS ORDERED: Potassium Chloride 40 MEQ in Premix Bag 1 BAG IVPB SCH (08:00)
[2017-09-18] MEDS: Potassium Chloride 20 MEQ in Premix Bag 1 BAG IVPB SCH ×2 (08:55→11:44)
[2017-09-18] MEDS: Famotidine/PF 20 mg/2ml Vial SLOW IVP SCH ×2 (08:57→20:17)
[2017-09-18] MEDS: Enoxaparin Sodium 40 MG/0.4 ML SYRINGE SC SCH (08:57)
[2017-09-18] MEDS ORDERED: Prevnar 13-Val Conj/PF 0.5 ML SYRINGE IM ONE (09:00)
--- NOTE | 2017-09-18 16:19 | PRG ---
DATE OF SERVICE: 09/18/2017 SUBJECTIVE: Dejan Canada is doing well. He is two days postoperatively. His NG tube was removed y esterday. He has not had any nausea or vomiting. He is hungry, has had several bowel movements. OBJECTIVE: LUNGS: Clear to auscultation. CARDIAC: Regular rate and rhythm without murmur or gallop. ABDOMEN: Soft, nondistended. Bowel sounds present. Colostomy healthy. Midline wound dressing is d ry. LABORATORY DATA: None except potassium 2.8. He was given 2 potassium infusions and we will recheck his electrolytes tomorrow. We will advance his diet today. Dr. Morrison is covering this weekend. The patient may be able to go home in the next couple of days. This patient takes methadone and [place] 1 0 at home. He has adequate supply. Will resume those medications for his chronic pain.
[2017-09-18] MEDS: METHadone HCl 10 MG TAB PO SCH (16:26)
[2017-09-18] MEDS: HYDROcodone/Acetaminophen 10/325 mg Tablet PO PRN (16:26)
[2017-09-18] MEDS: Doxycycline 100 MG CAP PO SCH (20:16)
[2017-09-18] MEDS ORDERED: Non-Formulary Item 1 EACH (Lactose-Reduced Food [Ensure Enlive] 237 ML) PO SCH (21:00)
[2017-09-19] MEDS: METHadone HCl 10 MG TAB PO SCH ×3 (00:13→07:21)
[2017-09-19] MEDS: HYDROcodone/Acetaminophen 10/325 mg Tablet PO PRN (00:52)
[2017-09-19 05:37] LABS: #Eosinphils 0.4 thou/uL (0.0-0.7); #Lymphocytes 0.8 thou/uL (1.20-3.40); #Monocytes 0.6 thou/uL (0.11-0.59); #Neutrophils 5.9 thou/uL (1.40-6.50); %Basophils 0.1 % (0.0-1.0); %Eosinophils 5.7 % (0.0-10.0); %Lymphocytes 10.8 % (21.0-51.0); %Monocytes 7.1 % (0.0-10.0); %Neutrophils 76.3 % (42.0-75.0); Hemoglobin 9.5 g/dL (14.0-18.0); Mean Corpuscular HGB CONC 31.2 g/dL (32.0-36.0); Mean Corpuscular Hemoglobin 28.4 pg (27.0-31.0); Mean Corpuscular Volume 91.1 fL (78.0-98.0); Mean Platelet Volume 6.6 fL (7.4-10.4); Platelet Count 335 thou/uL (130-400); RBC Distribution Width 18.9 % (11.5-14.5); Red Blood Cell (RBC) Count 3.34 mill/uL (4.70-6.10); White Blood Cell (WBC) Count 7.7 thou/uL (4.8-10.8)
[2017-09-19 05:41] LABS: Anion Gap 5 mmol/L (10-20); BUN (Urea Nitrogen) 4 mg/dL (8.4-25.7); Calc. Creatinine Clearance 136 mL/min (70-130); Calcium 9.9 mg/dL (7.8-10.44); Carbon Dioxide 33 mmol/L (22-29); Chloride 102 mmol/L (98-107); Estimated GFR-MDRD Greater than 90; Glucose 83 mg/dL (70-105); Potassium 3.1 mmol/L (3.5-5.1); Sodium 137 mmol/L (136-145)
[2017-09-19] MEDS ORDERED: Polyethylene Glycol 3350 17 GM Packet PO SCH (09:00)
[2017-09-19] MEDS: Enoxaparin Sodium 40 MG/0.4 ML SYRINGE SC SCH (09:37)
[2017-09-19] MEDS: Famotidine/PF 20 mg/2ml Vial SLOW IVP SCH (09:37)
[2017-09-19] MEDS: Doxycycline 100 MG CAP PO SCH (09:37)
[2017-09-19 11:59] VITALS: BP 124/84; TEMP 98.1
[2017-09-19] MEDS ORDERED: Famotidine 20 MG TAB PO SCH (21:00)
== END 2017-09-19 14:15 | disposition home or self-care (01) | DRG 330 ==
LOC: SURG A 14:19 → EDSTATUS 09-29 14:02
PROVIDERS: ADMIT Specialist; ATTEND Specialist
PROC: 0D1N0Z4 Bypass Sigmoid Colon to Cutaneous, Open Approach (ICD-10-PCS; principal; 2017-09-16)
PROC: 0WJG4ZZ Inspection of Peritoneal Cavity, Percutaneous Endoscopic Approach (ICD-10-PCS; 2017-09-16)
PROC: 0DNW0ZZ Release Peritoneum, Open Approach (ICD-10-PCS; 2017-09-16)
DX: C20 Malignant neoplasm of rectum (principal); C79.9 Secondary malignant neoplasm of unspecified site; E44.0 Moderate protein-calorie malnutrition; K66.0 Peritoneal adhesions (postprocedural) (postinfection); Z53.31 Laparoscopic surgical procedure converted to open procedure; G89.29 Other chronic pain; Z68.20 Body mass index [BMI] 20.0-20.9, adult; Z90.49 Acquired absence of other specified parts of digestive tract; F17.210 Nicotine dependence, cigarettes, uncomplicated
CPT/HCPCS: 36415; 80048; 80053; 83036; 85025; 86850; 86900; 86901; 90471; 90670; G0009; J0131; J0360; J0670; J1650; J1885; J2001; J2185; J2250; J2270; J2405; J2704; J3010; J3480; J7050; J7120; S0028

== ENCOUNTER 2017-10-12 09:49 | Day surgery (SDC) | payer MEDICARE, MEDICAID ==
[2017-10-12 10:14] VITALS: BP 134/85; TEMP 99.1
[2017-10-12] MEDS ORDERED: Sodium Chloride 0.9% 20 ML ONE (10:24)
[2017-10-12] MEDS ORDERED: WATER IVPB SCH (11:00)
[2017-10-12] MEDS ORDERED: ONDANSETRON IVPB SCH (11:00)
[2017-10-12] MEDS ORDERED: Oxaliplatin 200 MG in Dextrose 5% in Water 500 ML IVPB SCH (11:00)
[2017-10-12] MEDS ORDERED: Dexamethasone 20 MG in Sodium Chloride 0.9% 50 ML IVPB SCH (11:00)
[2017-10-12] MEDS ORDERED: SODIUM CHLORIDE 0.9% IVPB SCH (11:00)
[2017-10-12] MEDS ORDERED: DEXTROSE 5% IVPB SCH (11:00)
[2017-10-12] MEDS ORDERED: DEXAMETHASONE IVPB SCH (11:00)
[2017-10-12] MEDS ORDERED: Ondansetron HCl/PF 4 MG/2 ML Vial SLOW IVP SCH (11:00)
[2017-10-12] MEDS ORDERED: FLUOROURACIL IVPB SCH (11:00)
== END 2017-10-12 14:40 | disposition home or self-care (01) ==
LOC: ONC/OP 09:49
PROVIDERS: ATTEND Internal Medicine Medical Oncology
DX: Z51.11 Encounter for antineoplastic chemotherapy (principal); C20 Malignant neoplasm of rectum
CPT/HCPCS: 96375; 96411; 96413; 96415; A4216; J1100; J2405; J7050; J7070; J9190; J9263

== ENCOUNTER 2017-10-19 10:31 | Outpatient (CLI) | payer MEDICARE, MEDICAID ==
[2017-10-19] MEDS ORDERED: ISOVUE-370 76%-LOCM 1 ML ONE (10:47)
== END 2017-10-19 10:32 | disposition home or self-care (01) ==
LOC: BICCT 10:31
PROVIDERS: ATTEND Internal Medicine Medical Oncology
DX: C18.9 Malignant neoplasm of colon, unspecified (principal); C20 Malignant neoplasm of rectum; C78.00 Secondary malignant neoplasm of unspecified lung; C78.7 Secondary malignant neoplasm of liver and intrahepatic bile duct; R91.8 Other nonspecific abnormal finding of lung field; N42.89 Other specified disorders of prostate; N32.89 Other specified disorders of bladder
CPT/HCPCS: 71260; 74177

== ENCOUNTER 2017-10-26 11:42 | Day surgery (SDC) | payer MEDICARE, MEDICAID ==
[2017-10-26] MEDS ORDERED: Sodium Chloride 0.9% 20 ML ONE (11:55)
[2017-10-26] MEDS ORDERED: Dexamethasone 20 MG in Sodium Chloride 0.9% 50 ML IVPB SCH (12:00)
[2017-10-26] MEDS ORDERED: Ondansetron HCl/PF 4 MG/2 ML Vial SLOW IVP SCH (12:00)
[2017-10-26] MEDS ORDERED: DEXTROSE 5% IVPB SCH (12:15)
[2017-10-26] MEDS ORDERED: FLUOROURACIL IVPB SCH (12:15)
[2017-10-26] MEDS ORDERED: WATER IVPB SCH (12:15)
[2017-10-26] MEDS ORDERED: Oxaliplatin 200 MG in Dextrose 5% in Water 500 ML IVPB SCH (12:15)
[2017-10-26 12:21] VITALS: BP 116/72; TEMP 98.1
== END 2017-10-26 15:54 | disposition home or self-care (01) ==
LOC: ONC/OP 11:42
PROVIDERS: ATTEND Internal Medicine Medical Oncology
DX: Z51.11 Encounter for antineoplastic chemotherapy (principal); C20 Malignant neoplasm of rectum; C78.7 Secondary malignant neoplasm of liver and intrahepatic bile duct; C78.00 Secondary malignant neoplasm of unspecified lung; F17.210 Nicotine dependence, cigarettes, uncomplicated; Z90.49 Acquired absence of other specified parts of digestive tract; Z79.899 Other long term (current) drug therapy
CPT/HCPCS: 96376; 96411; 96413; 96415; A4216; J1100; J2405; J7050; J7070; J9190; J9263

== ENCOUNTER 2017-11-06 11:06 | Day surgery (SDC) | payer MEDICARE, MEDICAID ==
[2017-11-06] MEDS ORDERED: Sodium Chloride 0.9% 20 ML ONE (11:12)
[2017-11-06] MEDS ORDERED: FLUOROURACIL IVPB SCH (11:30)
[2017-11-06] MEDS ORDERED: Dexamethasone 20 MG in Sodium Chloride 0.9% 50 ML IVPB SCH (11:30)
[2017-11-06] MEDS ORDERED: BEVACIZUMAB IVPB SCH (11:30)
[2017-11-06] MEDS ORDERED: SODIUM CHLORIDE 0.9% IVPB SCH (11:30)
[2017-11-06] MEDS ORDERED: DEXTROSE 5% IVPB SCH (11:30)
[2017-11-06] MEDS ORDERED: Ondansetron HCl/PF 4 MG/2 ML Vial SLOW IVP SCH (11:30)
[2017-11-06] MEDS ORDERED: Oxaliplatin 200 MG in Dextrose 5% in Water 500 ML IVPB SCH (11:30)
[2017-11-06] MEDS ORDERED: WATER IVPB SCH (11:30)
[2017-11-06 16:43] VITALS: BP 125/77; TEMP 97.8
== END 2017-11-06 16:44 | disposition home or self-care (01) ==
LOC: ONC/OP 11:06 → ONC 11:13 → ONC/OP 16:44
PROVIDERS: ATTEND Internal Medicine Medical Oncology
DX: Z51.11 Encounter for antineoplastic chemotherapy (principal); C20 Malignant neoplasm of rectum; C78.7 Secondary malignant neoplasm of liver and intrahepatic bile duct; C78.02 Secondary malignant neoplasm of left lung; C78.01 Secondary malignant neoplasm of right lung; F17.200 Nicotine dependence, unspecified, uncomplicated
CPT/HCPCS: 96375; 96411; 96413; 96415; 96417; A4216; J1100; J2405; J7050; J7070; J9035; J9190; J9263

== ENCOUNTER 2017-11-23 14:13 | Day surgery (SDC) | payer MEDICARE, MEDICAID ==
[2017-11-23] MEDS ORDERED: Sodium Chloride 0.9% 20 ML ONE (14:40)
[2017-11-23] MEDS ORDERED: [UNRECOGNIZED DRUG - OTHER] IVPB SCH (14:45)
[2017-11-23] MEDS ORDERED: ONDANSETRON IVPB SCH (14:45)
[2017-11-23] MEDS ORDERED: ADMIXTURE FEE IVPB SCH (14:45)
[2017-11-23] MEDS ORDERED: DEXTROSE 5% IVPB SCH (14:45)
[2017-11-23] MEDS ORDERED: Oxaliplatin 200 MG in Dextrose 5% in Water 500 ML IVPB SCH (14:45)
[2017-11-23] MEDS ORDERED: BEVACIZUMAB IVPB SCH (14:45)
[2017-11-23] MEDS ORDERED: WATER IVPB SCH (14:45)
[2017-11-23] MEDS ORDERED: FLUOROURACIL IVPB SCH (14:45)
[2017-11-23] MEDS ORDERED: DEXAMETHASONE IVPB SCH (14:45)
[2017-11-23] MEDS ORDERED: SODIUM CHLORIDE 0.9% IVPB SCH (14:45)
== END 2017-11-23 19:03 | disposition home or self-care (01) ==
LOC: ONC/OP 14:13
PROVIDERS: ATTEND Internal Medicine Medical Oncology
DX: Z51.11 Encounter for antineoplastic chemotherapy (principal); C20 Malignant neoplasm of rectum; F17.210 Nicotine dependence, cigarettes, uncomplicated; Z92.3 Personal history of irradiation; Z92.21 Personal history of antineoplastic chemotherapy; Z79.891 Long term (current) use of opiate analgesic; Z79.899 Other long term (current) drug therapy
CPT/HCPCS: 36415; 80053; 82248; 82378; 83615; 84100; 84550; 96375; 96413; 96415; 96416; 96417; A4216; J1100; J2405; J7050; J7070; J9035; J9190; J9263

== ENCOUNTER 2017-12-07 12:32 | Day surgery (SDC) | payer MEDICARE, MEDICAID ==
[2017-12-07] MEDS ORDERED: FLUOROURACIL IVPB SCH (13:00)
[2017-12-07] MEDS ORDERED: SODIUM CHLORIDE 0.9% IVPB SCH ×3 (13:00→13:15)
[2017-12-07] MEDS ORDERED: Oxaliplatin 200 MG in Dextrose 5% in Water 500 ML IVPB SCH (13:00)
[2017-12-07] MEDS ORDERED: BEVACIZUMAB IVPB SCH ×2 (13:00→13:15)
[2017-12-07] MEDS ORDERED: DEXTROSE 5% IVPB SCH (13:00)
[2017-12-07] MEDS ORDERED: ONDANSETRON IVPB SCH (13:00)
[2017-12-07] MEDS ORDERED: WATER IVPB SCH (13:00)
[2017-12-07] MEDS ORDERED: DEXAMETHASONE IVPB SCH (13:00)
[2017-12-07] MEDS ORDERED: Dexamethasone Sod Phosphate 20 MG, Ondansetron 2MG/ML MDV 10 MG in Sodium Chloride 0.9%... IVPB SCH (13:15)
[2017-12-07] MEDS ORDERED: Sodium Chloride 0.9% 20 ML ONE (13:24)
[2017-12-07 16:58] VITALS: BP 127/90; TEMP 97.9
== END 2017-12-07 17:21 | disposition home or self-care (01) ==
LOC: ONC/OP 12:32
PROVIDERS: ATTEND Internal Medicine Medical Oncology
DX: Z51.11 Encounter for antineoplastic chemotherapy (principal); C20 Malignant neoplasm of rectum; F17.210 Nicotine dependence, cigarettes, uncomplicated; Z79.2 Long term (current) use of antibiotics; Z79.899 Other long term (current) drug therapy; Z90.49 Acquired absence of other specified parts of digestive tract; Z93.3 Colostomy status
CPT/HCPCS: 96375; 96413; 96415; 96417; A4216; J1100; J1642; J2405; J7050; J7070; J9035; J9190; J9263

== ENCOUNTER 2017-12-18 08:10 | Outpatient (CLI) | payer MEDICARE, MEDICAID ==
--- NOTE | 2017-12-18 13:19 | MRI ---
MRI BRAIN WITH AND WITHOUT CONTRAST: Date: 12/18/17 INDICATION: Dizziness. History of rectal/colon carcinoma. FINDINGS: The ventricular system is of normal size. There is mild to moderate gliosis of bilateral cerebral hem ispheres. There is no acute territorial infarction, intracranial mass effect, or midline shift. No ev idence of intra-axial pathologic enhancement or intracranial hemorrhage. Skull base flow-voids are ma intained. The mastoid air cells reveal mild fluid signal. IMPRESSION: 1. No acute intracranial abnormalities. 2. No evidence of an enhancing intra-axial mass. POS: [facility]
== END 2017-12-18 08:11 | disposition home or self-care (01) ==
LOC: MRI 08:10
PROVIDERS: ATTEND Internal Medicine Medical Oncology
DX: R42 Dizziness and giddiness (principal); C20 Malignant neoplasm of rectum; C79.31 Secondary malignant neoplasm of brain
CPT/HCPCS: 70553

== ENCOUNTER 2017-12-24 09:32 | Day surgery (SDC) | payer MEDICARE, MEDICAID ==
[2017-12-24] MEDS ORDERED: [UNRECOGNIZED DRUG - OTHER] IVP SCH (09:45)
[2017-12-24] MEDS ORDERED: WATER IVPB SCH (09:45)
[2017-12-24] MEDS ORDERED: ADMIXTURE FEE IVP SCH ×2 (09:45→10:00)
[2017-12-24] MEDS ORDERED: Oxaliplatin 200 MG in Dextrose 5% in Water 500 ML IVPB SCH (09:45)
[2017-12-24] MEDS ORDERED: ONDANSETRON IVP SCH ×2 (09:45→10:00)
[2017-12-24] MEDS ORDERED: DEXAMETHASONE IVP SCH ×2 (09:45→10:00)
[2017-12-24] MEDS ORDERED: FLUOROURACIL IVPB SCH (09:45)
[2017-12-24] MEDS ORDERED: DEXTROSE 5% IVPB SCH (09:45)
[2017-12-24] MEDS ORDERED: BEVACIZUMAB IVPB SCH (10:00)
[2017-12-24] MEDS ORDERED: SODIUM CHLORIDE 0.9% IVPB SCH (10:00)
[2017-12-24] MEDS ORDERED: [UNRECOGNIZED DRUG - OTHER] IVP SCH (10:00)
[2017-12-24] MEDS ORDERED: Sodium Chloride 0.9% 40 ML ONE (10:01)
== END 2017-12-24 14:55 | disposition home or self-care (01) ==
LOC: ONC/OP 09:32
PROVIDERS: ATTEND Internal Medicine Medical Oncology
DX: Z51.11 Encounter for antineoplastic chemotherapy (principal); C20 Malignant neoplasm of rectum; F17.200 Nicotine dependence, unspecified, uncomplicated
CPT/HCPCS: 96367; 96413; 96415; 96416; 96417; J1100; J2405; J7050; J7070; J9035; J9190; J9263

== ENCOUNTER 2018-01-07 11:19 | Day surgery (SDC) | payer MEDICARE, MEDICAID ==
[2018-01-07] MEDS ORDERED: FLUOROURACIL IVPB SCH (11:45)
[2018-01-07] MEDS ORDERED: DEXAMETHASONE IVPB SCH (11:45)
[2018-01-07] MEDS ORDERED: Oxaliplatin 200 MG in Dextrose 5% in Water 500 ML IVPB SCH (11:45)
[2018-01-07] MEDS ORDERED: DEXTROSE 5% IVPB SCH (11:45)
[2018-01-07] MEDS ORDERED: SODIUM CHLORIDE 0.9% IVPB SCH ×3 (11:45→12:15)
[2018-01-07] MEDS ORDERED: ONDANSETRON IVPB SCH (11:45)
[2018-01-07] MEDS ORDERED: WATER IVPB SCH (11:45)
[2018-01-07] MEDS ORDERED: BEVACIZUMAB IVPB SCH ×2 (11:45→12:15)
[2018-01-07] MEDS ORDERED: Sodium Chloride 0.9% 20 ML ONE (12:05)
== END 2018-01-07 17:06 | disposition home or self-care (01) ==
LOC: ONC/OP 11:19
PROVIDERS: ATTEND Internal Medicine Medical Oncology
DX: Z51.11 Encounter for antineoplastic chemotherapy (principal); C20 Malignant neoplasm of rectum
CPT/HCPCS: 96375; 96413; 96415; 96416; 96417; J1100; J2405; J7050; J7070; J9035; J9190; J9263

== ENCOUNTER 2018-01-18 08:51 | Outpatient (CLI) | payer MEDICARE, MEDICAID ==
[2018-01-18] MEDS ORDERED: ISOVUE-370 76%-LOCM 1 ML ONE (10:43)
--- NOTE | 2018-01-18 11:50 | CT ---
CT CHEST WITH CONTRAST CT ABDOMEN WITH CONTRAST CT PELVIS WITH CONTRAST: HISTORY: Colon cancer with mets to the lung and the liver. COMPARISON: CT 10/19/2017. FINDINGS: There are innumerable metastatic foci throughout the lungs. Mild interval size increase of pulmonar y nodules. Using a reference nodule in the right upper lobe peripherally on axial 31 measuring approximately 13 mm in long axis, previously 9 mm. A nodule in the anterior segment right upper lobe measures 15 mm i n long axis, previously 11 mm. In the left lower lobe, the nodule measures up to 16 mm, previously 1 3 mm. Right lower lobe nodule axial image 54 posterior segment measures up to a centimeter in size, previou sly 6 mm. Heart size is normal. No pericardial effusion. Port catheter tip is in the mid SVC. Mass within hepatic segment 8 measures approximately 2.2 cm greatest dimension, previously 2.7 cm. M ass in hepatic segment 6 measures approximately 8 mm, previously 16 mm. Common bile duct is dilated. No dilated air-filled loops of large or small bowel. Extensive mesorec meena fat stranding is similar. No hydronephrosis. Calcifications interpolar right kidney are similar . No retroperitoneal adenopathy. There is a left hepatic segment 2, 50 mm nodule which previously m easured 2.6 cm. IMPRESSION: 1. Marked interval size increase in multiple pulmonary nodules. 2. Size decreased liver mets. POS: [facility]
== END 2018-01-18 08:52 | disposition home or self-care (01) ==
LOC: BICCT 08:51
PROVIDERS: ATTEND Internal Medicine Medical Oncology
DX: C20 Malignant neoplasm of rectum (principal); C78.7 Secondary malignant neoplasm of liver and intrahepatic bile duct; C78.00 Secondary malignant neoplasm of unspecified lung; R91.8 Other nonspecific abnormal finding of lung field
CPT/HCPCS: 71260; 74177

== ENCOUNTER 2018-01-21 12:20 | Day surgery (SDC) | payer MEDICARE, MEDICAID ==
[2018-01-21 12:29] VITALS: BP 138/95; TEMP 98.2
[2018-01-21] MEDS ORDERED: Sodium Chloride 0.9% 30 ML ONE (12:31)
[2018-01-21] MEDS ORDERED: Oxaliplatin 200 MG in Dextrose 5% in Water 500 ML IVPB SCH (12:45)
[2018-01-21] MEDS ORDERED: DEXAMETHASONE IVPB SCH (12:45)
[2018-01-21] MEDS ORDERED: ONDANSETRON IVPB SCH (12:45)
[2018-01-21] MEDS ORDERED: BEVACIZUMAB IVPB SCH (12:45)
[2018-01-21] MEDS ORDERED: SODIUM CHLORIDE 0.9% IVPB SCH ×2 (12:45)
[2018-01-21] MEDS ORDERED: WATER IVPB SCH (12:45)
[2018-01-21] MEDS ORDERED: DEXTROSE 5% IVPB SCH (12:45)
[2018-01-21] MEDS ORDERED: FLUOROURACIL IVPB SCH (12:45)
== END 2018-01-21 17:45 | disposition home or self-care (01) ==
LOC: ONC/OP 12:20
PROVIDERS: ATTEND Internal Medicine Medical Oncology
DX: Z51.11 Encounter for antineoplastic chemotherapy (principal); C20 Malignant neoplasm of rectum
CPT/HCPCS: 36415; 80053; 82248; 82378; 83615; 84100; 84550; 96375; 96413; 96415; 96416; 96417; J1100; J2405; J7050; J7070; J9035; J9190; J9263

== ENCOUNTER 2018-02-04 11:28 | Day surgery (SDC) | payer MEDICARE, MEDICAID ==
[2018-02-04] MEDS ORDERED: Sodium Chloride 0.9% 40 ML ONE (12:00)
[2018-02-04] MEDS ORDERED: SODIUM CHLORIDE 0.9% IVPB SCH ×2 (12:45)
[2018-02-04] MEDS ORDERED: DEXTROSE 5% IVPB SCH (12:45)
[2018-02-04] MEDS ORDERED: WATER IVPB SCH (12:45)
[2018-02-04] MEDS ORDERED: BEVACIZUMAB IVPB SCH (12:45)
[2018-02-04] MEDS ORDERED: DEXAMETHASONE IVPB SCH (12:45)
[2018-02-04] MEDS ORDERED: Oxaliplatin 200 MG in Dextrose 5% in Water 500 ML IVPB SCH (12:45)
[2018-02-04] MEDS ORDERED: FLUOROURACIL IVPB SCH (12:45)
[2018-02-04] MEDS ORDERED: ONDANSETRON IVPB SCH (12:45)
== END 2018-02-04 19:50 | disposition home or self-care (01) ==
LOC: ONC/OP 11:28
PROVIDERS: ATTEND Internal Medicine Medical Oncology
DX: Z51.11 Encounter for antineoplastic chemotherapy (principal); C20 Malignant neoplasm of rectum; F17.200 Nicotine dependence, unspecified, uncomplicated; Z79.899 Other long term (current) drug therapy
CPT/HCPCS: 96367; 96375; 96413; 96415; 96416; 96417; J1100; J2405; J7050; J7070; J9035; J9190; J9263

== ENCOUNTER 2018-02-18 09:17 | Day surgery (SDC) | payer MEDICARE, MEDICAID ==
[2018-02-18] MEDS ORDERED: BEVACIZUMAB IVPB SCH (09:45)
[2018-02-18] MEDS ORDERED: DEXAMETHASONE IVPB SCH (09:45)
[2018-02-18] MEDS ORDERED: SODIUM CHLORIDE 0.9% IVPB SCH ×2 (09:45)
[2018-02-18] MEDS ORDERED: ONDANSETRON IVPB SCH (09:45)
[2018-02-18] MEDS: Sodium Chloride 0.9% 30 ML ONE (10:15)
[2018-02-18] MEDS: ONDANSETRON IVPB SCH (10:15)
[2018-02-18] MEDS: DEXAMETHASONE IVPB SCH (10:15)
[2018-02-18] MEDS: SODIUM CHLORIDE 0.9% IVPB SCH ×2 (10:15→11:05)
[2018-02-18 10:54] VITALS: BP 133/82; TEMP 97.5
[2018-02-18] MEDS: DEXTROSE 5% IVPB SCH (11:05)
[2018-02-18] MEDS: BEVACIZUMAB IVPB SCH (11:05)
[2018-02-18] MEDS: FLUOROURACIL IVPB SCH (11:05)
[2018-02-18] MEDS: Oxaliplatin 200 MG in Dextrose 5% in Water 500 ML IVPB SCH (11:05)
[2018-02-18] MEDS: WATER IVPB SCH (11:05)
== END 2018-02-18 14:59 | disposition home or self-care (01) ==
LOC: ONC/OP 09:17
PROVIDERS: ATTEND Internal Medicine Medical Oncology
DX: Z51.11 Encounter for antineoplastic chemotherapy (principal); C20 Malignant neoplasm of rectum; F17.200 Nicotine dependence, unspecified, uncomplicated; Z79.899 Other long term (current) drug therapy
CPT/HCPCS: 96375; 96413; 96415; 96416; 96417; J1100; J2405; J7050; J7070; J9035; J9190; J9263

== ENCOUNTER → 2018-03-04 | Day surgery (SDC) | payer MEDICARE, MEDICAID ==
[~2018-03-04] MED LIST changes: +Atropine Sulfate 0.25 MG in Sodium Chloride 0.9% 50 ML IVPB SCH; +BEVACIZUMAB IVPB SCH; -Bupivacaine HCl 0.5%/Epinephrine 1:200,000/PF 30 ml Vial ONE; +DEXTROSE 5% IVPB SCH; +FLUOROURACIL IVPB SCH; -Glycopyrrolate 0.2 MG/ML 5 ML SYRINGE ONE; +Irinotecan 350 MG in Sodium Chloride 0.9% 500 ML IVPB SCH; -Lidocaine 1% PF 5 ML VIAL ONE; -Ondansetron HCl/PF 4 MG/2 ML Vial ONE; -PHENYLEPHRINE-NS 100 MCG/ML 10 ML SYRINGE ONE; -PROPOFOL 200 MG/20 ML VIAL ONE; +SODIUM CHLORIDE 0.9% IVPB SCH; +Sodium Chloride 0.9% 20 ML ONE; +WATER IVPB SCH
[2018-03-04] MEDS: ONDANSETRON IVPB SCH ×2 (11:18→12:21)
[2018-03-04] MEDS: SODIUM CHLORIDE 0.9% IVPB SCH ×2 (11:18→12:21)
[2018-03-04] MEDS: DEXAMETHASONE IVPB SCH ×2 (11:18→12:21)
== END ==
LOC: ONC/OP 10:23
PROVIDERS: ATTEND Internal Medicine Medical Oncology
DX: Z51.11 Encounter for antineoplastic chemotherapy (principal); C20 Malignant neoplasm of rectum
CPT/HCPCS: 96375; 96413; 96416; 96417; J0461; J1100; J2405; J7050; J7070; J9035; J9190; J9206

== ENCOUNTER 2018-03-18 10:42 | Day surgery (SDC) | payer MEDICARE, MEDICAID ==
[2018-03-18] MEDS ORDERED: Sodium Chloride 0.9% 30 ML ONE (10:56)
[2018-03-18] MEDS ORDERED: FLUOROURACIL IVPB SCH (11:00)
[2018-03-18] MEDS ORDERED: WATER IVPB SCH (11:00)
[2018-03-18] MEDS ORDERED: DEXTROSE 5% IVPB SCH (11:00)
[2018-03-18] MEDS ORDERED: ONDANSETRON IVPB SCH (11:30)
[2018-03-18] MEDS ORDERED: SODIUM CHLORIDE 0.9% IVPB SCH ×2 (11:30→11:45)
[2018-03-18] MEDS ORDERED: DEXAMETHASONE IVPB SCH (11:30)
[2018-03-18] MEDS ORDERED: Atropine Sulfate 0.25 MG in Sodium Chloride 0.9% 50 ML IVPB SCH (11:45)
[2018-03-18] MEDS ORDERED: Irinotecan 350 MG in Sodium Chloride 0.9% 500 ML IVPB SCH (11:45)
[2018-03-18] MEDS ORDERED: BEVACIZUMAB IVPB SCH (11:45)
[2018-03-18 13:06] VITALS: BP 129/93; TEMP 97.6
== END 2018-03-18 17:20 | disposition home or self-care (01) ==
LOC: ONC/OP 10:42
PROVIDERS: ATTEND Internal Medicine Medical Oncology
DX: Z51.11 Encounter for antineoplastic chemotherapy (principal); C20 Malignant neoplasm of rectum; F17.200 Nicotine dependence, unspecified, uncomplicated; Z79.899 Other long term (current) drug therapy
CPT/HCPCS: 96375; 96413; 96416; 96417; J0461; J1100; J2405; J7050; J7070; J9035; J9190; J9206

== ENCOUNTER 2018-04-08 11:16 | Day surgery (SDC) | payer MEDICARE, MEDICAID ==
[2018-04-08] MEDS ORDERED: Sodium Chloride 0.9% 20 ML ONE (11:32)
[2018-04-08] MEDS ORDERED: FLUOROURACIL IVPB SCH (11:45)
[2018-04-08] MEDS ORDERED: WATER IVPB SCH (11:45)
[2018-04-08] MEDS ORDERED: DEXTROSE 5% IVPB SCH (11:45)
[2018-04-08] MEDS ORDERED: ONDANSETRON IVPB SCH (12:00)
[2018-04-08] MEDS ORDERED: SODIUM CHLORIDE 0.9% IVPB SCH ×2 (12:00)
[2018-04-08] MEDS ORDERED: Irinotecan 350 MG in Sodium Chloride 0.9% 500 ML IVPB SCH (12:00)
[2018-04-08] MEDS ORDERED: DEXAMETHASONE IVPB SCH (12:00)
[2018-04-08] MEDS ORDERED: BEVACIZUMAB IVPB SCH (12:00)
[2018-04-08] MEDS ORDERED: Atropine Sulfate 0.25 MG in Sodium Chloride 0.9% 50 ML IVPB SCH (12:00)
[2018-04-08 12:05] VITALS: BP 119/79; TEMP 97.6
== END 2018-04-08 16:02 | disposition home or self-care (01) ==
LOC: ONC/OP 11:16
PROVIDERS: ATTEND Internal Medicine Medical Oncology
DX: Z51.11 Encounter for antineoplastic chemotherapy (principal); C20 Malignant neoplasm of rectum; C78.7 Secondary malignant neoplasm of liver and intrahepatic bile duct; C78.00 Secondary malignant neoplasm of unspecified lung; F17.200 Nicotine dependence, unspecified, uncomplicated; Z79.899 Other long term (current) drug therapy; Z90.49 Acquired absence of other specified parts of digestive tract
CPT/HCPCS: 36415; 80053; 82248; 82378; 83615; 84100; 84550; 96375; 96413; 96416; 96417; J0461; J1100; J2405; J7050; J7070; J9035; J9190; J9206

== ENCOUNTER 2018-04-22 01:12 | Day surgery (SDC) | payer MEDICARE, MEDICAID ==
[2018-04-22] MEDS ORDERED: Irinotecan 350 MG in Sodium Chloride 0.9% 500 ML IVPB SCH (06:00)
[2018-04-22] MEDS ORDERED: Atropine Sulfate 0.25 MG in Sodium Chloride 0.9% 50 ML IVPB SCH (06:00)
[2018-04-22] MEDS ORDERED: DEXAMETHASONE IVPB SCH (06:00)
[2018-04-22] MEDS ORDERED: ONDANSETRON IVPB SCH (06:00)
[2018-04-22] MEDS ORDERED: FLUOROURACIL IVPB SCH ×2 (06:00)
[2018-04-22] MEDS ORDERED: DEXTROSE 5% IVPB SCH (06:00)
[2018-04-22] MEDS ORDERED: SODIUM CHLORIDE 0.9% IVPB SCH ×3 (06:00)
[2018-04-22] MEDS ORDERED: WATER IVPB SCH (06:00)
[2018-04-22] MEDS ORDERED: BEVACIZUMAB IVPB SCH (06:00)
[2018-04-22] MEDS ORDERED: Sodium Chloride 0.9% 20 ML ONE (11:03)
[2018-04-22 11:44] VITALS: BP 122/78; TEMP 97.5
== END 2018-04-22 15:59 | disposition home or self-care (01) ==
LOC: ONC/OP 01:12
PROVIDERS: ATTEND Internal Medicine Medical Oncology
DX: Z51.11 Encounter for antineoplastic chemotherapy (principal); C20 Malignant neoplasm of rectum; F17.200 Nicotine dependence, unspecified, uncomplicated
CPT/HCPCS: 96375; 96413; 96416; 96417; J0461; J1100; J2405; J7050; J7070; J9035; J9190; J9206

== ENCOUNTER 2018-05-06 11:07 | Day surgery (SDC) | payer MEDICARE, MEDICAID ==
[~2018-05-06 11:07] MED LIST changes: +DEXAMETHASONE IVPB SCH; +ONDANSETRON IVPB SCH; -Sodium Chloride 0.9% 20 ML ONE; +Sodium Chloride 0.9% 30 ML ONE
[2018-05-06 14:49] VITALS: BP 118/68; TEMP 97.7
== END 2018-05-06 15:28 | disposition home or self-care (01) ==
LOC: ONC/OP 11:07
PROVIDERS: ATTEND Internal Medicine Medical Oncology
DX: Z51.11 Encounter for antineoplastic chemotherapy (principal); C20 Malignant neoplasm of rectum; C78.00 Secondary malignant neoplasm of unspecified lung; C78.7 Secondary malignant neoplasm of liver and intrahepatic bile duct; F17.210 Nicotine dependence, cigarettes, uncomplicated; Z90.49 Acquired absence of other specified parts of digestive tract
CPT/HCPCS: 96375; 96413; 96417; J0461; J1100; J2405; J7050; J7070; J9035; J9190; J9206

== ENCOUNTER 2018-05-20 11:21 | Day surgery (SDC) | payer MEDICARE, MEDICAID ==
[~2018-05-20 11:21] MED LIST changes: -Sodium Chloride 0.9% 30 ML ONE
[2018-05-20] MEDS ORDERED: Atropine Sulfate 0.25 MG in Sodium Chloride 0.9% 50 ML IVPB SCH (11:45)
[2018-05-20 12:17] LABS: ALT (SGPT) 11 U/L (8-55); AST (SGOT) 17 U/L (5-34); Albumin 3.6 g/dL (3.5-5.0); Alkaline Phosphatase 196 U/L (40-150); Anion Gap 10 mmol/L (10-20); BUN (Urea Nitrogen) 13 mg/dL (8.4-25.7); Bilirubin, Total 0.2 mg/dL (0.2-1.2); Calc. Creatinine Clearance 105 mL/min (70-130); Calcium 11.1 mg/dL (7.8-10.44); Carbon Dioxide 24 mmol/L (22-29); Chloride 105 mmol/L (98-107); Estimated GFR-MDRD Greater than 90; Globulin 3.2 g/dL (2.4-3.5); Glucose 106 mg/dL (70-105); Potassium 4.5 mmol/L (3.5-5.1); Protein, Total 6.8 g/dL (6.0-8.3); Sodium 134 mmol/L (136-145)
[2018-05-20] MEDS ORDERED: Sodium Chloride 0.9% 20 ML ONE (13:15)
== END 2018-05-20 15:52 | disposition home or self-care (01) ==
LOC: ONC/OP 11:21
PROVIDERS: ATTEND Internal Medicine Medical Oncology
DX: Z51.11 Encounter for antineoplastic chemotherapy (principal); C20 Malignant neoplasm of rectum
CPT/HCPCS: 80053; 82378; 96375; 96413; 96416; 96417; J0461; J1100; J2405; J7050; J7070; J9035; J9190; J9206

== ENCOUNTER 2018-06-03 12:38 | Day surgery (SDC) | payer MEDICARE, MEDICAID ==
[2018-06-03] MEDS ORDERED: Sodium Chloride 0.9% 30 ML ONE (12:50)
== END 2018-06-03 17:18 | disposition home or self-care (01) ==
LOC: ONC/OP 12:38
PROVIDERS: ATTEND Internal Medicine Medical Oncology
DX: Z51.11 Encounter for antineoplastic chemotherapy (principal); C20 Malignant neoplasm of rectum; Z79.899 Other long term (current) drug therapy
CPT/HCPCS: 96375; 96413; 96416; 96417; J0461; J1100; J2405; J7050; J7070; J9035; J9190; J9206

== ENCOUNTER 2018-06-09 00:43 | Emergency (ER) | payer MEDICARE, MEDICAID | END 2018-06-09 02:33 | disposition home or self-care (01) | LOC: ERS 00:43 | DX: T85.848A Pain due to other internal prosthetic devices, implants and grafts, initial encounter (principal); I10 Essential (primary) hypertension; F17.210 Nicotine dependence, cigarettes, uncomplicated | CPT/HCPCS: 99282 ==

== ENCOUNTER 2018-06-14 10:44 | Outpatient (CLI) | payer MEDICARE, MEDICAID ==
--- NOTE | 2018-06-14 12:24 | CT ---
CHEST, ABDOMEN, AND PELVIC CT SCAN WITH CONTRAST: HISTORY: Colon cancer with metastases COMPARISON: None FINDINGS: The previously described reference nodule, peripherally within right upper lobe is now cavitary and, therefore, diameter size has slightly expanded at least in part due to the interval cavitation. Prior 15 mm nodule of the right upper lobe has enlarged now measuring 18 mm. Prior 16mm left lower lobe nodule also demonstrates interval cavitation, with resultant size expansio n, now measuring 20 mm in diameter. These nodules are again amidst innumerable, diffuse bilateral pul monary nodules, many of which have also demonstrated interval cavitation. Liver: Previously described 6 mm nodule within posterior segment right hepatic lobe now measures 13 m m. Prior lesion at the anterior segment right hepatic lobe measured at 27 mm now measures 39 mm. Num erous additional mixed-density lesions throughout the right and left hepatic lobes are redemonstrated .. Gallbladder:Mildly contracted Pancreas:Unremarkable Spleen:Unremarkable. Adrenal glands:Unremarkable. Kidneys:Right renal calculi are redemonstrated.No solid or cystic mass. Bowel: Left lower quadrant ostomy is again demonstrated. There is a component of peristomal herniatio n containing fat, mesenteric vasculature, and regional mesenteric lymph nodes. Masslike wall prominen ce of the rectosigmoid colon extending to the anorectal verge is present. Within limitations, the vol ume of this finding is grossly stable although is incompletely assessed due to the decompressed, unop acified state of the colon. Urinary Bladder: The urinary bladder is unremarkable. Adenopathy:There is mild enlargement of mesenteric lymph node at the left lower quadrant ostomy site, 17 mm in diameter, enlarged compared to prior exam where measured at 10 mm Free Air: No free air. Ascites: No ascites. Osseous structures: No acute osseous abnormalities. IMPRESSION: 1. Interval cavitation as well as size progression of numerous bilateral pulmonary metastatic lesions . 2. Interval size progression of metastatic lesions, as discussed above. 3. Persistent mural-based prominence of the rectosigmoid colon which may relate to residual or recurr ent mass of this region, although incompletely assessed. 4. Size progression of mesenteric lymph node which may relate to metastatic involvement. Transcribed Date/Time: 06/14/2018 12:50 PM
[2018-06-14] MEDS ORDERED: ISOVUE-370 76%-LOCM 1 ML ONE (14:46)
== END 2018-06-14 10:45 | disposition home or self-care (01) ==
LOC: BICCT 10:44
PROVIDERS: ATTEND Internal Medicine Medical Oncology
DX: C78.00 Secondary malignant neoplasm of unspecified lung (principal); C78.7 Secondary malignant neoplasm of liver and intrahepatic bile duct; C18.9 Malignant neoplasm of colon, unspecified; C20 Malignant neoplasm of rectum
CPT/HCPCS: 71260; 74177